=== PATIENT | female | born 1945 | race Caucasian/White ===

== ENCOUNTER → 2016-11-14 | Outpatient (CLI) | payer OTHER ==
[~2016-11-14] MED LIST: ADVIN50/60 INH; ADVIN50050 INH; AMB10 PO; ASPI81TA21 PO; ASPI81TA28 PO; ATOR-22 PO; ATOR-54 PO; AZIT250T PO; BUDE0.5S INH; CALC-452 PO; CALC-51 PO; CALCTAB5 PO; CELE1CAP30 PO; CHOL100027 PO; CLON0.5T3 PO; CLOP1TAB5 PO; CRG125 PO; DPKSR500 PO; EFF75 PO; EPP3/2 IM; IMMU4INJ SQ; IVIG; IVIG SC; KLN5X PO; LABE100T23 PO; LBT100 PO; LEVA1.255; LEVA1.255 NEB; LOSA100T65 PO; LOSA1TAB38 PO; LPT40 PO; MOME50SP5; MOME6000; MONT1TAB3 PO; MULT-513 PO; MULTTAB PO; MXZC25 PO; OMEP20CA59 PO; OMEP20CA9 PO; PHEN-601 PO; PLMINSR5 INH; PLV75 PO; POTA20TA13 PO; POTA20TA16 PO; PRED10TA PO; TRIA37.5 PO; VENL37.593 PO; VENL75TA4 PO; VNTHFA/IN INH; XPNINS125 NEB; ZOLP10TA PO; ZOLP10TA6 PO; [UNRECOGNIZED DRUG - OTHER] IV
[2016-11-14 14:38] LABS: HEMATOCRIT 35.8 % (37-47); MEAN CELL VOLUME 93.5 fL (80-100); MEAN CORPUSCULAR HEMOGLOBIN 32.6 pg (25-34); MEAN CORPUSCULAR HGB CONC 34.9 g/dl (32-36); MEAN PLATELET VOLUME 8.8 fL (7.4-10.4); PLATELET COUNT 277 K/uL (130-400); RED BLOOD COUNT 3.83 M/uL (4.2-5.4); WHITE BLOOD COUNT 12.99 K/uL (4.8-10.8)
[2016-11-14 15:23] LABS: BLOOD UREA NITROGEN 21 mg/dl (7-18); BUN/CREATININE RATIO 18.9 (10-20)
[2016-11-14 16:10] LABS: INFLUENZA A PCR Neg for Influ A (NEG); INFLUENZA B PCR Neg for Influ B (NEG)
== END | disposition home or self-care (01) ==
LOC: C.LAB 13:38
PROVIDERS: ATTEND Internal Medicine Pulmonary Disease
DX: R06.02 Shortness of breath (principal); R05 Cough

== ENCOUNTER → 2016-12-20 | Day surgery (SDC) | payer OTHER ==
[2016-12-11 13:12] LABS: COMPLETE YES; EOS % 1.3 %; HEMATOCRIT 38.2 % (37-47); IG% 0.4 %; LYMPH % 23.6 %; MEAN CELL VOLUME 96.2 fL (80-100); MEAN CORPUSCULAR HGB CONC 34.3 g/dl (32-36); MEAN PLATELET VOLUME 8.7 fL (7.4-10.4); MONO % 5.4 %; NEUT % 69.3 %; PLATELET COUNT 180 K/uL (130-400); RED BLOOD COUNT 3.97 M/uL (4.2-5.4); WHITE BLOOD COUNT 9.76 K/uL (4.8-10.8)
[2016-12-11 13:27] LABS: PARTIAL THROMBOPLASTIN RATIO 0.9; PROTHROMBIN TIME (PATIENT) 10.4 SECONDS (9.0-12.0)
[2016-12-11 13:49] LABS: ALT/SGPT 32 U/L (12-78); AST/SGOT 23 U/L (15-37); BLOOD UREA NITROGEN 14 mg/dl (7-18); BUN/CREATININE RATIO 13.2 (10-20); CALCIUM 8.5 mg/dl (8.5-10.1); CARBON DIOXIDE 31 mmol/L (21-32); CHLORIDE 99 mmol/L (98-107); GLUCOSE 100 mg/dl (70-99); SODIUM 136 mmol/L (136-145)
[2016-12-11 13:51] LABS: ALB/GLOB RATIO 0.9 (0.9-2); ALKALINE PHOSPHATASE 46 U/L (45-117)
[~2016-12-20] VITALS: Ht 156.2 cm; Wt 56.3 kg
[2016-12-20] VITALS (14 sets, daily range): BP systolic 136–203; BP diastolic 63–128; PULSE 81–95; TEMP 36.3–36.8; O2SAT 95–99; Ht 156.2 cm; Wt 56.3 kg
[~2016-12-20] MED LIST changes: +FENTANYL CITRATE INJ 50 MCG/1 ML 2 ML VIAL IV ONE; +HydrALAZINE HCL 20 MG/ML VIAL ONE; +LIDOCAINE 4% INH SOLN 4 ML BTL ONE; +LIDOCAINE HCL 2% LOCAL 50ML VIAL INFIL ONE; +MIDAZOLAM HCL 5 MG/ML 1 ML VIAL IV ONE
--- NOTE | 2016-12-20 07:54 | Procedure Note ---
Pre-Mod Sedation Assessment General Date of Moderate Sedation: Dec 20, 2016. Vital Signs: 71y/o female her for bronchoscopy secondary to chronically poorly controlled asthma with multiple rounds of anti-biotic and steroid failure. She underwent B.T. with Dr. Cuco Jett in [id number] with some benefit but at this time she continues to have progression of her respiratory symptoms. Review Cardiovascular: regular rate, rhythm, no edema, no gallop, no JVD, no murmur, normal peripheral pulses Abdomen: normal bowel sounds, non tender, soft, no organomegaly, no pulsatile mass, normal rectal exam, occult blood negative Lungs: chest non-tender, lungs clear, normal breath sounds, no respiratory distress, no accessory muscle use Airway Class: II Pre-Sedation Airway Assessment Oral Cavity: Dental Abnormalities Short Thick Neck: No Hx of Sleep Apnea: No Smoking Status: Former Smoker Mallampati Classification: Class II ASA Classification: Class II Procedure Planning Contraindications-for Mod Sed: None Yes Notes The planned sedation has been discussed with the patient and consent obtained. I have identified the patient, determined the appropriateness of sedation and have assessed the patient immediately prior to the procedure. All medicine(s) and interventions are by my order.
--- NOTE | 2016-12-20 08:48 | History & Physical Bridge Note ---
H&P Re-Evaluation Bridge Note: I have examined the patient, reviewed the History & Physical and in the interval since the performance of the History & Physical I have noted the following changes of clinical significance: No changes noted
--- NOTE | 2016-12-20 09:42 | Bronchoscopy Procedure Note ---
Bronchoscopy Procedure Note Procedure: Bronchoscopy, conscious sedation Preprocedural diagnosis: Chronic poorly controlled asthma Postprocedural diagnosis: Chronic probably controlled asthma/rhinitis Consent: Obtained to the patient placed in the chart Analgesia: 2% liquid lidocaine: atomizer via nebulizer 2% liquid lidocaine: Via hand-held nebulizer/atomizer Sedation: Versed IV: 2 mg Fentanyl IV: 50 g Medications: Hydralazine IV: 10 mg Procedure: The Olympus video bronchoscope was used for this procedure passed out through the oropharynx, retroflexed off the oropharynx for posterior view the naris. The oropharynx/posterior oropharynx: Anatomically within normal limits, no erythema of the posterior oropharynx Sree glottis/glottic region: Anatomically within normal limits but notable erythema globally Posterior naris: Erythema with hyponatremia appreciated bilateral posterior nasopharynx Discontinuation: Procedure was terminated prior to passing the plonk into the airway as patient's blood pressure was notably elevated. Even after medication it was notably at 174/111. As she was transferred back to [facility] the patient's blood pressure lowered and her diastolic was notably at 86. Follow-up: Patient will be followed up in a issue and of stable with normal blood pressure discharged home. Patient will be followed up in the [facility] and repeat bronchoscopy we will set up at that time and when our patient's blood pressure better controlled.
--- NOTE | 2016-12-20 09:42 | Procedure Note ---
Post-Moderate Sedation Plan General Date of Moderate Sedation Dec 20, 2016. Vital Signs: Vital Signs Past 12 Hours Date Time Temp Pulse Resp B/P Pulse Ox O2 Delivery O2 Flow Rate FiO2 12/20/16 09:25 95 18 167/89 98 Mask 4.0 12/20/16 09:20 93 20 174/111 98 Mask 4.0 12/20/16 09:15 93 20 203/121 98 Mask 4.0 12/20/16 09:10 81 20 197/128 98 Mask 4.0 12/20/16 09:05 82 20 193/111 98 Mask 4.0 12/20/16 09:00 88 18 181/89 97 Mask 4.0 12/20/16 08:50 83 18 185/90 97 Room Air 12/20/16 08:13 36.3 86 18 171/92 97 Room Air Review - Discharge Plan Post Moderate Sedation Plan: On clinical assessment, the patient appears to have tolerated the conscious sedation without complications. Patient is recovering as anticipated. Patient will continue to be monitored by nursing and may be discharged when conscious sedation discharge criteria are met.
--- NOTE | 2016-12-20 09:48 | Discharge Instructions ---
Discharge Instructions Date of Service Dec 20, 2016. Admission Reason for Admission: Sob, Asthma, Cough; R0602 Discharge Discharge Diagnosis / Problem: poorly controlled asthma/pleurisy control blood pressure Discharge Goals Goal(s): Diagnostic testing Activity Recommendations Activity Limitations: resume your previous activity . Instructions / Follow-Up Instructions / Follow-Up Follow-up with the [facility] to reinitiate/reset up bronchoscopy. Current Hospital Diet Patient's current hospital diet: Discharge Diet Recommended Diet: Regular Diet Procedures Procedures Performed: Bronchoscopy, conscious sedation Pending Studies Studies pending at discharge: no Medical Emergencies . Who to Call and When: Medical Emergencies: If at any time you feel your situation is an emergency, please call 911 immediately. . Non-Emergent Contact Non-Emergency issues call your: Energy Specialist Call Non-Emergent contact if: temperature is above 101.5 . Past History Medical & Surgical History: (1) Asthma (2) AC MYOCARDIAL INFARCT,SUBENDO INFARCT,INITIAL EPIS (3) ASTHMA, UNSPECIFIED (4) HYPERLIPIDEMIA NEC/NOS (5) COPD exacerbation (6) Bronchitis with asthma, acute (7) Asthma exacerbation . "Provider Documentation" section prepared by Jonh Lund. VTE Core Measure Inpt VTE Proph given/why not?: Treatment not indicated
== END | disposition home or self-care (01) ==
LOC: C.ACU 07:45
PROVIDERS: ATTEND Internal Medicine Critical Care Medicine
DX: J45.909 Unspecified asthma, uncomplicated (principal); I10 Essential (primary) hypertension; Z53.09 Procedure and treatment not carried out because of other contraindication; G47.33 Obstructive sleep apnea (adult) (pediatric); J32.9 Chronic sinusitis, unspecified; F32.9 Major depressive disorder, single episode, unspecified; K52.9 Noninfective gastroenteritis and colitis, unspecified; K58.9 Irritable bowel syndrome, unspecified; I08.0 Rheumatic disorders of both mitral and aortic valves

== ENCOUNTER 2017-01-05 08:45 | Day surgery (SDC) | payer OTHER ==
[2017-01-05] VITALS (12 sets, daily range): BP systolic 132–178; BP diastolic 71–110; PULSE 84–105; TEMP 36.6; O2SAT 94–100; Ht 157.5 cm; Wt 56.0 kg
[~2017-01-05] VITALS: Ht 157.5 cm; Wt 56.0 kg
--- NOTE | 2017-01-05 07:21 | History and Physical ---
History & Physical Date Jan 05, 2017. Chief Complaint Poorly controlled asthma History of Present Illness The patient is a 71 year old female with complaints of Poorly controlled asthma. This is a 71 year old female who we have treated for asthma for several years. She has undergone brochial thermoplasty at the end of 2013 and the beginning of 2014. She did well following this procedure for several months. She unfortunately has had some regression and recurrence of her symptoms. She recently has been having some frequent exacerbations to her breathing/asthma. She has been treated with multiple courses of antibiotics and prednisone. She unfortunately has been have recurrences of her exacerbations. At this time, we have discussed multiple treatment options. At this time, it is felt that having a followup bronchoscopy may be the most beneficial way to move forward. She has had bronchoscopies in the past when she has had exacerbations like this and has received significant improvement. In the past she has also had diminished but clear breath sounds but has been found to have significant mucus and mucoid impaction. We did discuss the procedure including the risks, benefits, and alternatives to this. She is agreeable to having this procedure. done. She will have the appropriate blood work. Her last PFT was done in August 2014 and revealed a FVC which was 84% predicted, an FEV1 of 75% predicted and an FVC/FEV1 ratio of 83% predicted. Past Medical/Surgical History Medical Problems: (1) AC MYOCARDIAL INFARCT,SUBENDO INFARCT,INITIAL EPIS (2) ASTHMA, UNSPECIFIED (3) HYPERLIPIDEMIA NEC/NOS (4) IRRITABLE BOWEL SYNDROME 1.Abnormal mammogram 2.Acute sinusitis 3.Arthralgia of multiple sites 4.Poorly Controlled Asthma 5.Chronic sinusitis 6.Cough 7.Depression 8.Dyspareunia 9.Gastroenteritis 10.Generalized anxiety disorder 11.Helicobacter pylori (H. 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 Myocardial Infarction Surgical History 1. Bronchoscopy With Bronchial Thermoplasty 2. Dilation And Curettage 3. Hx Of Breast Surgery For Biopsy 4. Sinus Surgery Additional History Hepatic Disease: No Endocrine Disorder: No Kidney Disease: No Hypertension: Yes Heart Disease: Yes Bleeding Tendencies: No Infectious Diseases: No Allergies Coded Allergies: Levofloxacin (Verified Allergy, Severe, ANAPHYLAXIS, 12/20/16) Quinolones (Verified Allergy, Severe, RASH, 12/20/16) Avelox and levaquin Molds and Smuts (Verified Allergy, Mild, SEASONAL ALLERGY SYMPTOMS, ) Doxycycline (Verified Adverse Reaction, Intermediate, nausea, 12/20/16) Erythromycin (Verified Adverse Reaction, Mild, N/V, 12/20/16) Penicillins (Verified Adverse Reaction, Mild, AUGMENTIN-GI UPSET, 12/20/16) GI UPSET Home Medications Scheduled Aspirin Enteric Coated (Ecotrin Or Generic), 81 MG PO DAILY Atorvastatin (Lipitor), 20 MG PO QPM Calcium (Caltrate), 1,200 MG PO DAILY Epinephrine (Epipen), 0.3 MG IM UD Fluticasone Prop/Salmeterol (Advair Diskus 500-50 Mcg/Dose), 1 PUFF INH BID Labetalol Hcl (Labetalol Hcl), 50 MG PO BID Losartan Potassium (Cozaar), 100 MG PO QPM Mometasone Furoate (Nasonex), 2 SPRAY NA DAILY Montelukast Sodium (Singulair), 10 MG PO DAILY Multivitamins/Minerals (Mvi With Minerals), 1 TAB PO DAILY Omeprazole (Prilosec), 20 MG PO DAILY Potassium Ext Rel (Klor-Con), 20 MEQ PO DAILY Triamterene/Hctz (Triamterene/Hctz 37.5-25MG Tab), 1 TAB PO DAILY Venlafaxine Hcl (Effexor), 75 MG PO DAILY Zolpidem Tartrate (Ambien *), 10 MG PO HS PRN [Ivig], Unknown Dose SC WK Scheduled PRN Budesonide Soln (Pulmicort Respules 0.5MG/2ML), 2 ML INH QID PRN for Shortness of Breath Clonazepam (Klonopin), 0.5 MG PO TID PRN Levalbuterol Hcl (Levalbuterol), 1 DOSE NEB Q4H PRN for SOB/Wheezing Phenylephrine W/ Acetaminophen (Tylenol Sinus Congestion), 1 TAB PO Q6 PRN for Cough Physical Examination Skin: warm/dry, no rash Eyes: normal inspection, EOMI, sclerae normal ENT: normal ENT inspection, pharynx normal Head: normocephalic, atraumatic Neck: supple, no adenopathy, trachea midline Respiratory/Chest: lungs clear, normal breath sounds, no respiratory distress Cardiovascular: regular rate, rhythm, no edema, no murmur Abdomen / GI: normal bowel sounds, non tender Back: normal inspection Extremities: normal inspection, normal range of motion Neurologic/Psych: no motor/sensory deficits, alert, normal reflexes, oriented x 3 Diagnosis Poorly Controlled Asthma ASA Classification: ASA Class II Plan of Treatment Bronchoscopy with BAL
[~2017-01-05 08:45] MED LIST changes: -ADVIN50/60 INH; -ASPI81TA28 PO; -ATOR-22 PO; -AZIT250T PO; -CALC-452 PO; -CALC-51 PO; -CELE1CAP30 PO; -CHOL100027 PO; -CLOP1TAB5 PO; -CRG125 PO; -DPKSR500 PO; -EFF75 PO; -FENTANYL CITRATE INJ 50 MCG/1 ML 2 ML VIAL IV ONE; -HydrALAZINE HCL 20 MG/ML VIAL ONE; -IMMU4INJ SQ; -IVIG; -KLN5X PO; -LBT100 PO; -LEVA1.255; -LIDOCAINE 4% INH SOLN 4 ML BTL ONE; -LIDOCAINE HCL 2% LOCAL 50ML VIAL INFIL ONE; -LOSA100T65 PO; -LPT40 PO; -MIDAZOLAM HCL 5 MG/ML 1 ML VIAL IV ONE; -MOME6000; -MULT-513 PO; -OMEP20CA9 PO; -PLMINSR5 INH; -PLV75 PO; -POTA20TA13 PO; -PRED10TA PO; -TRIA37.5 PO; -VENL37.593 PO; -VNTHFA/IN INH; -XPNINS125 NEB; -ZOLP10TA PO; -ZOLP10TA6 PO; -[UNRECOGNIZED DRUG - OTHER] IV
[2017-01-05] MEDS ORDERED: FENTANYL CITRATE INJ 50 MCG/1 ML 2 ML VIAL IV ONE (08:46)
[2017-01-05] MEDS ORDERED: LIDOCAINE HCL 2% LOCAL 50ML VIAL INFIL ONE (08:46)
[2017-01-05] MEDS ORDERED: LIDOCAINE 4% INH SOLN 4 ML BTL ONE (08:46)
[2017-01-05] MEDS ORDERED: MIDAZOLAM HCL 5 MG/ML 1 ML VIAL IV ONE (08:46)
[2017-01-05] MEDS ORDERED: CLON0.5T3 PO (09:37)
[2017-01-05] MEDS ORDERED: LEVA1.255 (09:37)
[2017-01-05] MEDS ORDERED: OMEP20CA9 PO (09:37)
[2017-01-05] MEDS ORDERED: ZOLP10TA PO (09:37)
[2017-01-05] MEDS ORDERED: IVIG (09:37)
[2017-01-05] MEDS ORDERED: PLMINSR5 INH (09:37)
[2017-01-05] MEDS ORDERED: PHEN-601 PO (09:37)
[2017-01-05] MEDS ORDERED: ADVIN50/60 INH (09:37)
[2017-01-05] MEDS ORDERED: LOSA1TAB38 PO (09:37)
[2017-01-05] MEDS ORDERED: MOME6000 (09:37)
[2017-01-05] MEDS ORDERED: EFF75 PO (09:37)
[2017-01-05] MEDS ORDERED: ATOR-22 PO (09:37)
[2017-01-05] MEDS ORDERED: POTA20TA16 PO (09:37)
[2017-01-05] MEDS ORDERED: CALC-51 PO (09:37)
--- NOTE | 2017-01-05 10:22 | Procedure Note ---
Pre-Mod Sedation Assessment General Date of Moderate Sedation: Jan 05, 2017. Vital Signs: Vital Signs Past 12 Hours Date Time Temp Pulse Resp B/P Pulse Ox O2 Delivery O2 Flow Rate FiO2 01/05/17 09:13 36.6 87 18 161/86 100 Room Air Review Cardiovascular: regular rate, rhythm, no edema, no gallop, no JVD, no murmur, normal peripheral pulses Abdomen: normal bowel sounds, non tender, soft, no organomegaly, no pulsatile mass, normal rectal exam, occult blood negative Lungs: chest non-tender, no respiratory distress, no accessory muscle use, + decreased breath sounds Airway Class: II Pre-Sedation Airway Assessment Oral Cavity: WNL Able to Visualize Vocal Cords: Yes Short Thick Neck: No Hx of Sleep Apnea: Yes Smoking Status: Former Smoker Mallampati Classification: Class II ASA Classification: Class II Procedure Planning Contraindications-for Mod Sed: None Yes Notes The planned sedation has been discussed with the patient and consent obtained. I have identified the patient, determined the appropriateness of sedation and have assessed the patient immediately prior to the procedure. All medicine(s) and interventions are by my order.
--- NOTE | 2017-01-05 11:12 | Discharge Instructions ---
Discharge Instructions Date of Service Jan 05, 2017. Admission Reason for Admission: Sob; Cough; Asthma Discharge Discharge Diagnosis / Problem: patient is to follow-up with the [facility] Discharge Goals Goal(s): Diagnostic testing Activity Recommendations Activity Limitations: resume your previous activity . Instructions / Follow-Up Instructions / Follow-Up Patient is to follow-up in the [facility] after bronchoscopy Current Hospital Diet Patient's current hospital diet: Discharge Diet Recommended Diet: Regular Diet Procedures Procedures Performed: Bronchoscopy, conscious sedation, bronchial alveolar lavage of the right middle lobe Pending Studies Studies pending at discharge: yes List of pending studies: Microbiologic, fungal and viral analysis of the bronchial lavage Medical Emergencies . Who to Call and When: Medical Emergencies: If at any time you feel your situation is an emergency, please call 911 immediately. . Non-Emergent Contact Non-Emergency issues call your: Food Operations Manager Call Non-Emergent contact if: temperature is above 101.5 . . "Provider Documentation" section prepared by Jonh Lund. VTE Core Measure Inpt VTE Proph given/why not?: Treatment not indicated
--- NOTE | 2017-01-05 11:13 | Procedure Note ---
Post-Moderate Sedation Plan General Date of Moderate Sedation Jan 05, 2017. Vital Signs: Vital Signs Past 12 Hours Date Time Temp Pulse Resp B/P Pulse Ox O2 Delivery O2 Flow Rate FiO2 01/05/17 11:05 105 20 150/88 100 Mask 5.0 01/05/17 11:00 99 18 178/93 100 Mask 5.0 01/05/17 10:55 94 18 169/95 100 Mask 5.0 01/05/17 10:50 87 18 157/79 100 Mask 5.0 01/05/17 10:47 87 18 158/110 100 Mask 5.0 01/05/17 09:13 36.6 87 18 161/86 100 Room Air Review - Discharge Plan Post Moderate Sedation Plan: On clinical assessment, the patient appears to have tolerated the conscious sedation without complications. Patient is recovering as anticipated. Patient will continue to be monitored by nursing and may be discharged when conscious sedation discharge criteria are met.
[2017-01-05] MEDS ORDERED: NURSING VERBAL MED ORDER ONE ×2 (11:15)
[2017-01-05] MEDS ORDERED: SODIUM CHLORIDE 0.9% 1000ML 1,000 ML IV SCH (11:15)
[2017-01-05] MEDS ORDERED: MIDAZOLAM HCL 5 MG/ML 1 ML VIAL IV SCH (11:15)
[2017-01-05] MEDS ORDERED: FENTANYL CITRATE INJ 50 MCG/1 ML 2 ML VIAL IV SCH (11:15)
--- NOTE | 2017-01-05 11:17 | Bronchoscopy Procedure Note ---
Bronchoscopy Procedure Note Procedure: Bronchoscopy, conscious sedation, bronchial alveolar lavage of the right middle lobe Consent: Obtained through the patient placed into the chart Preprocedural diagnosis: Chronic cough Postprocedural diagnosis: Chronic cough Start time: 1049 End time: 1100 Total time: 11 minutes Analgesia: 2% liquid lidocaine: Via nebulizer 4% gel lidocaine: Via right naris 2% liquid lidocaine: Via bronchoscopy Sedation: Versed IV: 3 mg Fentanyl IV: 50 g Procedure: The Olympus video bronchoscope was used for this procedure passed out through the right naris. Right naris/posterior naris/posterior oropharynx: Anatomically within normal limits Glottis: Anatomically within normal limits Vocal cords: Proper abduction and abduction, anatomically within normal limits Subglottis: Trachea: Approximately 3 cm below the level of the rohan and hyperextension of 6 cm there were multiple ways calcified nodules noted along the tracheal rings. Most of these were on the left side and anterior subsegment of the trachea. There was a 5 mm in length area of tracheal indentation almost fracture were no signs of tracheobronchial malacia. Rohan: Anatomically within normal limits Right bronchial tree: Right mainstem bronchus: Anatomically within normal limits Right upper lobe: Anatomically within normal limits Bronchus intermedius: Anatomically within normal limits Right middle lobe: Anatomically within normal limits Right lower lobe: Anatomically within normal limits Findings: No significant findings noted Left bronchial tree: Left mainstem bronchus: Anatomically within normal limits Left upper lobe: Anatomically within normal limits Lingula: Anatomically within normal limits Left lower lobe: Anatomically within normal limits Findings: No significant findings noted Bronchial alveolar lavage: Approximate 60 cc of normal saline was used and approximately 30 cc of return of the right middle lobe Complications: None Follow-up: Initial postprocedural follow-up will be in the [facility] Patient will be followed up in the [facility]
[2017-02-02 10:51] LABS: HERPES SIMPLEX CULT SOURCE OTHER-BRONCH WASH; HERPES SIMPLEX VIRUS CULT NOT ISOLATED (NOT ISOLATED)
[2017-06-13] MEDS ORDERED: EPP3/2 IM (09:37)
[2017-06-13] MEDS ORDERED: TRIA37.5 PO (09:37)
[2017-06-13] MEDS ORDERED: LBT100 PO (09:37)
[2017-06-13] MEDS ORDERED: ASPI81TA28 PO (09:37)
[2017-06-13] MEDS ORDERED: MULT-513 PO (09:37)
[2017-07-19] MEDS ORDERED: ATOR-24 PO (10:05)
[2017-07-19] MEDS ORDERED: DPKSR/500 PO (10:05)
[2017-07-19] MEDS ORDERED: CLOP1TAB15 PO (10:05)
[2017-07-19] MEDS ORDERED: SODI1TAB PO (10:05)
[2017-07-19] MEDS ORDERED: MAGNESIUM POTASSIUM PO (10:05)
[2017-07-19] MEDS ORDERED: PRED10TA PO (10:05)
[2017-07-19] MEDS ORDERED: DPKSR/250 PO (10:05)
[2017-07-19] MEDS ORDERED: CARV12.5 PO (10:05)
[2017-07-19] MEDS ORDERED: CLB/200 PO (10:05)
[2017-07-19] MEDS ORDERED: NAPR1TAB9 PO (10:08)
[2017-07-20] MEDS ORDERED: BENZ100C7 PO (10:32)
== END 2017-01-05 13:15 | disposition home or self-care (01) ==
LOC: C.ACU 08:45
PROVIDERS: ATTEND Internal Medicine Critical Care Medicine
DX: R05 Cough (principal); J45.909 Unspecified asthma, uncomplicated; E78.5 Hyperlipidemia, unspecified; F32.9 Major depressive disorder, single episode, unspecified; F41.1 Generalized anxiety disorder; I10 Essential (primary) hypertension; G47.33 Obstructive sleep apnea (adult) (pediatric); Z79.82 Long term (current) use of aspirin; Z79.899 Other long term (current) drug therapy

== ENCOUNTER → 2017-02-21 | Outpatient (CLI) | payer OTHER ==
[~2017-02-21] MED LIST changes: +ADVIN50/60 INH; -ADVIN50050 INH; -AMB10 PO; -ASPI81TA21 PO; +ASPI81TA28 PO; +ATOR-24 PO; +BENZ100C7 PO; -BUDE0.5S INH; +CALC-452 PO; +CALC-51 PO; -CALCTAB5 PO; +CARV12.5 PO; +CELE1CAP30 PO; +CLB/200 PO; +CLOP1TAB15 PO; +CLOP1TAB5 PO; +CRG125 PO; +DPKSR/250 PO; +DPKSR/500 PO; +DPKSR500 PO; +EFF75 PO; +IMMU4INJ SQ; +KLN5X PO; -LABE100T23 PO; +LBT100 PO; +LEVA1.255; -LEVA1.255 NEB; +LOSA100T65 PO; +LPT40 PO; +MAGNESIUM POTASSIUM PO; -MOME50SP5; +MOME6000; +MULT-513 PO; -MULTTAB PO; -MXZC25 PO; +NAPR1TAB9 PO; -OMEP20CA59 PO; +OMEP20CA9 PO; +PLMINSR5 INH; +PLV75 PO; +POTA20TA13 PO; +PRED10TA PO; +SODI1TAB PO; +TRIA37.5 PO; +VENL37.593 PO; -VENL75TA4 PO; +VNTHFA/IN INH; +XPNINS125 NEB; +ZOLP10TA PO; +ZOLP10TA6 PO
--- NOTE | 2017-02-21 15:11 | MAMMOGRAPHY REPORT ---
BILATERAL DIGITAL SCREENING MAMMOGRAM TOMOSYNTHESIS WITH CAD: 02/21/2017 CLINICAL HISTORY: Routine screening. Patient has no complaints. TECHNIQUE: Breast tomosynthesis in addition to standard 2D mammography was performed. Current study was also evaluated with a Computer Aided Detection (CAD) system. COMPARISON: Comparison is made to exams dated: 09/14/2016 ultrasound, 09/14/2016 mammogram, 03/15/20 16 mammogram, 03/06/2016 mammogram, 02/21/2016 mammogram, and 02/18/2015 mammogram - [facility]. BREAST COMPOSITION: The tissue of both breasts is heterogeneously dense, which may obscure small ma sses. FINDINGS: No suspicious masses, calcifications, or areas of architectural distortion are noted in e ither breast. There has been no significant interval change compared to prior exams. A biopsy marke r clip is again noted in the left upper outer quadrant. Bilateral benign-appearing calcifications a re not significantly changed. A linear scar marker denotes a scar on the left lateral breast. IMPRESSION: ACR BI-RADS CATEGORY 2: BENIGN There is no mammographic evidence of malignancy. A 1 year screening mammogram is recommended. The p atient will receive written notification of the results. Approximately 10% of breast cancers are not detected with mammography. A negative mammographic repor t should not delay biopsy if a clinically suggestive mass is present. Christel Le M.D. ah/:02/21/2017 14:50:29 Senior Sustainability Advisor: Harley METZGER(R)(M), [facility] letter sent: Normal 1/2 BI-RADS Code: ACR BI-RADS Category 2: Benign
== END | disposition home or self-care (01) ==
LOC: C.MAMM 13:29
PROVIDERS: ATTEND Family Medicine
DX: Z12.31 Encounter for screening mammogram for malignant neoplasm of breast (principal)

== ENCOUNTER → 2017-05-25 | Outpatient (CLI) | payer OTHER ==
[~2017-05-25] MED LIST changes: -ATOR-24 PO; -BENZ100C7 PO; -CARV12.5 PO; -CLB/200 PO; -CLOP1TAB15 PO; -DPKSR/250 PO; -DPKSR/500 PO; -MAGNESIUM POTASSIUM PO; -NAPR1TAB9 PO; -PRED10TA PO; -SODI1TAB PO
--- NOTE | 2017-05-25 13:07 | DIAGNOSTIC IMAGING REPORT ---
TWO VIEW CHEST CLINICAL HISTORY: Cough. Asthma. FINDINGS: PA and lateral chest radiographs are compared to study dated 06/23/2014 and correlated with chest CT dated 05/24/2013. The cardiomediastinal silhouette is unremarkable. Chronic interstitial thickening is similar to previous. There is no airspace consolidation or pleural effusion. There is no pneumothorax. The skeletal structures are osteopenic. The bony thorax appears intact. Fusion hardware is noted in the cervical spine. IMPRESSION: No active disease in the chest. Electronically signed by: Juan Miguel Chahal M.D. 05/25/2017 1:05 PM Dictated Date/Time: 05/25/2017 1:04 PM
[2017-05-25 15:00] LABS: BASO % 0.2 %; BASO ABS # 0.01 K/uL (0-0.2); COMPLETE YES; EOS % 0.4 %; HEMATOCRIT 35.5 % (37-47); IG% 0.2 %; LYMPH % 13.3 %; LYMPH ABS # 0.64 K/uL (1.2-3.4); MEAN CELL VOLUME 93.2 fL (80-100); MEAN CORPUSCULAR HEMOGLOBIN 33.1 pg (25-34); MEAN CORPUSCULAR HGB CONC 35.5 g/dl (32-36); MEAN PLATELET VOLUME 8.9 fL (7.4-10.4); MONO % 0.6 %; NEUT % 85.3 %; PLATELET COUNT 269 K/uL (130-400); RED BLOOD COUNT 3.81 M/uL (4.2-5.4); WHITE BLOOD COUNT 4.83 K/uL (4.8-10.8)
[2017-05-25 15:23] LABS: IMMUNOGLOBULN A 69.9 mg/dL (70-400); IMMUNOGLOBULN M 40.8 mg/dL (40-230)
== END | disposition home or self-care (01) ==
LOC: C.LAB 12:21
PROVIDERS: ATTEND Family Medicine
DX: J45.909 Unspecified asthma, uncomplicated (principal); R05 Cough; D83.9 Common variable immunodeficiency, unspecified; Z11.59 Encounter for screening for other viral diseases

== ENCOUNTER 2017-06-13 17:28 | Inpatient (IN) | payer OTHER ==
[~2017-06-13] VITALS: Ht 157.5 cm; Wt 60.6 kg
[~2017-06-13 17:28] MED LIST changes: -CALC-452 PO; -CELE1CAP30 PO; -CLOP1TAB5 PO; -CRG125 PO; -DPKSR500 PO; -IMMU4INJ SQ; -KLN5X PO; -LOSA100T65 PO; -LPT40 PO; -PLV75 PO; -POTA20TA13 PO; -VENL37.593 PO; -VNTHFA/IN INH; -XPNINS125 NEB; -ZOLP10TA6 PO
[2017-06-13] MEDS ORDERED: SODIUM CHLORIDE 0.9% 1000ML 1,000 ML IV SCH (17:32)
[2017-06-13] MEDS ORDERED: ONDANSETRON INJ 2 MG/ML 2 ML VIAL IV STA (17:33)
[2017-06-13] MEDS ORDERED: LABETALOL HCL IV 5 MG/ML 20ML IV STA (17:34)
[2017-06-13] MEDS ORDERED: NiCARDipine IV 25 MG in SODIUM CHLORIDE 0.9% 250ML 240 ML IV STA (17:38)
--- NOTE | 2017-06-13 17:43 | EMERGENCY ROOM VISIT NOTE ---
History Report prepared by Cielo: Lilibeth Ellison Under the Supervision of: Dr. Armand Hathaway M.D. First contact with patient: 17:30 Chief Complaint: STROKE SYMPTOMS Stated Complaint: STROKE SX History of Present Illness The patient is a 71 year old female who presents to the Emergency Room with complaints of constant stroke symptoms beginning 5 hours ago at 12:20. Per nursing staff, he patient has a history of CVA. She was last noted to be completely normal about 4 or 5 days ago but started having weakness 5 hours ago. The patient complains of nausea, vomiting, and shortness of breath. Her family notes that she was more confused this afternoon. She denies any facial droop. Source of History: patient, nursing staff Onset: 4 days ago Position: other (global) Quality: other (stroke symptoms) Timing: constant Associated Symptoms: + SOB, + nausea, + vomiting Note: Pt notes confusion. Denies facial droop. Review of Systems See HPI for pertinent positives & negatives. A total of 10 systems reviewed and were otherwise negative. Past Medical & Surgical Medical Problems: (1) AC MYOCARDIAL INFARCT,SUBENDO INFARCT,INITIAL EPIS (2) Altered mental status (3) ASTHMA, UNSPECIFIED (4) HYPERLIPIDEMIA NEC/NOS (5) Hypertensive urgency (6) IRRITABLE BOWEL SYNDROME Family History Hypertension Social History Smoking Status: Former Smoker Alcohol Use: none Drug Use: none Marital Status: Occupation Status: employed Current/Historical Medications Scheduled Aspirin (Aspirin Ec), 81 MG PO DAILY Calcium Carbonate-Cholecalcife (Calcium 600 + D 600-200 mg-Unit), 1 TAB PO BID Immune Globulin (Human) Subcut (Hizentra), 1 DOSE SQ WK Labetalol HCl (Labetalol HCl), 50 MG PO BID Levalbuterol (Levalbuterol HCl), 1.25 MG NEB Q4H Losartan Potassium (Cozaar), 100 MG PO DAILY Multivitamins/Minerals (Mvi With Minerals), 1 TAB PO DAILY Potassium Chloride Microencaps (Potassium Chloride Er), 20 MEQ PO DAILY Triamterene/Hctz (Dyazide 37.5MG/25MG), 1 CAP PO DAILY Venlafaxine Hcl (Venlafaxine Extended Rel), 37.5 MG PO DAILY Scheduled PRN Albuterol Hfa (Ventolin Hfa), 2 PUFFS INH Q4H PRN for Cough/SOB/Wheezing Clonazepam (Clonazepam), 0.5 MG PO TID PRN for Anxiety Epinephrine (Epipen), 0.3 MG IM UD PRN for ALLERGIC REACTION Zolpidem Tartrate (Zolpidem Tartrate), 10 MG PO HS PRN for Sleep Allergies Coded Allergies: Levofloxacin (Verified Allergy, Severe, ANAPHYLAXIS, 01/05/17) Quinolones (Verified Allergy, Severe, RASH, 01/05/17) Avelox and levaquin Molds and Smuts (Verified Allergy, Mild, SEASONAL ALLERGY SYMPTOMS, 01/05/17 ) Amoxicillin (Verified Allergy, Unknown, Nausea, 06/13/17) Clavulanic Acid (Verified Allergy, Unknown, Nausea, 06/13/17) Moxifloxacin (Verified Allergy, Unknown, Nausea, 06/13/17) Doxycycline (Verified Adverse Reaction, Intermediate, nausea, 01/05/17) Erythromycin (Verified Adverse Reaction, Mild, N/V, 01/05/17) Penicillins (Verified Adverse Reaction, Mild, AUGMENTIN-GI UPSET, 01/05/17) GI UPSET Physical Exam Vital Signs Date Time Temp Pulse Resp B/P (MAP) Pulse Ox O2 Delivery O2 Flow Rate FiO2 06/13/17 20:05 141/72 06/13/17 20:00 107 16 140/72 96 Nasal Cannula 2.0 06/13/17 19:55 107 16 134/85 97 Nasal Cannula 2.0 06/13/17 19:50 107 142/64 06/13/17 19:45 118 148/75 06/13/17 19:40 118 16 159/69 97 Nasal Cannula 2.0 06/13/17 19:25 108 16 169/86 96 Nasal Cannula 2.0 06/13/17 19:15 106 16 169/86 96 Nasal Cannula 2.0 06/13/17 19:05 109 16 176/88 97 Nasal Cannula 2.0 06/13/17 18:50 108 18 195/103 97 06/13/17 18:45 99 187/92 06/13/17 18:40 103 186/93 97 Nasal Cannula 2.0 06/13/17 18:35 100 186/92 06/13/17 18:30 187/98 06/13/17 18:29 97 97 Nasal Cannula 2.0 9/13/17 18:26 189/86 06/13/17 18:24 105 96 Nasal Cannula 2.0 06/13/17 18:20 85 Room Air 06/13/17 18:20 96 Nasal Cannula 2.0 06/13/17 18:19 96 94 06/13/17 18:16 171/89 06/13/17 18:14 97 92 06/13/17 18:10 182/106 06/13/17 18:09 83 96 06/13/17 18:04 190/126 06/13/17 18:03 73 96 06/13/17 18:01 201/93 06/13/17 17:58 71 98 06/13/17 17:53 73 99 06/13/17 17:48 69 99 06/13/17 17:45 199/92 06/13/17 17:34 216/92 06/13/17 17:30 36.6 71 25 216/92 99 Room Air 06/13/17 17:30 99 Room Air Physical Exam GENERAL: Patient is actively vomiting, cannot follow commands, does not answer questions appropriately HEAD: Normocephalic atraumatic EYES: Ocular movements intact pupils equal and react to light OROPHARYNX mucous membranes are moist no exudates present no erythema or edema present NECK: Supple no nuchal rigidity CHEST: Good equal expansion LUNGS: Clear and equal to auscultation CARDIAC: Normal S1 and S2 ABDOMEN: Soft nontender no guarding BACK: No CVA tenderness EXTREMITIES: No pain upon palpation normal muscle strength in all groups no clubbing cyanosis or edema NEURO: Patient cannot follow commands, she is not answering questions appropriately. Medical Decision & Procedures ER Provider Diagnostic Interpretation: Radiology results as stated below per my review and radiologist interpretation: HEAD WITHOUT CONTRAST (CT) Comparison: None. Findings: The paranasal sinuses and mastoid air cells are clear. The calvarium and skull base are intact. The ventricles and sulci are within normal limits. There is no mass, hematoma, midline shift, or acute infarct. Impression: No acute intracranial abnormality. The above report was generated using voice recognition software. It may contain grammatical, syntax or spelling errors. Electronically signed by: Edy Boss M.D. 06/13/2017 5:45 PM Dictated Date/Time: 06/13/2017 5:44 PM CHEST ONE VIEW PORTABLE FINDINGS: The bones soft tissues and hemidiaphragms are normal. The cardiomediastinal silhouette is normal. The lungs are clear. The pulmonary vasculature is normal. IMPRESSION: Negative chest. The above report was generated using voice recognition software. It may contain grammatical, syntax or spelling errors. Electronically signed by: Edy Boss M.D. 06/13/2017 6:16 PM Dictated Date/Time: 06/13/2017 6:15 PM Laboratory Results 06/13/17 17:48 Red Blood Count 3.90, Mean Corpuscular Volume 92.3, Mean Corpuscular Hemoglobin 31.8, Mean Corpuscular Hemoglobin Concent 34.4, Mean Platelet Volume 8.4, Neutrophils (%) (Auto) 47.9, Lymphocytes (%) (Auto) 38.6, Monocytes (%) (Auto) 9.3, Eosinophils (%) (Auto) 3.6, Basophils (%) (Auto) 0.4, Neutrophils # (Auto) 2.26, Lymphocytes # (Auto) 1.82, Monocytes # (Auto) 0.44, Eosinophils # (Auto) 0.17, Basophils # (Auto) 0.02 06/13/17 17:48 Test 06/13/17 17:47 06/13/17 17:48 06/13/17 18:00 06/13/17 19:35 Bedside Glucose 125 mg/dl (70-90) White Blood Count 4.72 K/uL (4.8-10.8) Red Blood Count 3.90 M/uL (4.2-5.4) Hemoglobin 12.4 g/dL (12.0-16.0) Hematocrit 36.0 % (37-47) Mean Corpuscular Volume 92.3 fL (80-100) Mean Corpuscular Hemoglobin 31.8 pg (25-34) Mean Corpuscular Hemoglobin Concent 34.4 g/dl (32-36) Platelet Count 211 K/uL (130-400) Mean Platelet Volume 8.4 fL (7.4-10.4) Neutrophils (%) (Auto) 47.9 % Lymphocytes (%) (Auto) 38.6 % Monocytes (%) (Auto) 9.3 % Eosinophils (%) (Auto) 3.6 % Basophils (%) (Auto) 0.4 % Neutrophils # (Auto) 2.26 K/uL (1.4-6.5) Lymphocytes # (Auto) 1.82 K/uL (1.2-3.4) Monocytes # (Auto) 0.44 K/uL (0.11-0.59) Eosinophils # (Auto) 0.17 K/uL (0-0.5) Basophils # (Auto) 0.02 K/uL (0-0.2) RDW Standard Deviation 40.4 fL (36.4-46.3) RDW Coefficient of Variation 12.0 % (11.5-14.5) Immature Granulocyte % (Auto) 0.2 % Immature Granulocyte # (Auto) 0.01 K/uL (0.00-0.02) Prothrombin Time 10.0 SECONDS (9.0-12.0) Prothromb Time International Ratio 0.9 (0.9-1.1) Activated Partial Thromboplast Time 25.7 SECONDS (21.0-31.0) Partial Thromboplastin Ratio 1.0 Est Creatinine Clear Calc Drug Dose 41.3 ml/min Estimated GFR () 59.3 Estimated GFR (Non- 51.2 BUN/Creatinine Ratio 13.1 (10-20) Calcium Level 9.0 mg/dl (8.5-10.1) Total Creatine Kinase 280 U/L (26-192) Creatine Kinase MB 2.5 ng/ml (0.5-3.6) Creatine Kinase MB Ratio 0.9 (0-3.0) Chemistry Specimen Hemolysis Bedside Hemoglobin 12.6 g/dl (12.0-16.0) Bedside Hematocrit 37 % (37-47) Bedside Sodium 133 mEq/L (135-144) Bedside Potassium 3.3 mEq/L (3.3-5.0) Bedside Chloride 96 mEq/L (101-112) Bedside Total CO2 22 mEq/l (24-31) Anion Gap 19.0 mmol/L (16-25) Bedside Blood Urea Nitrogen 15 mg/dl (7-18) Bedside Creatinine 1.1 mg/dl (0.6-1.3) Bedside Glucose (other) 129 mg/dl (70-99) Bedside Ionized Calcium ([place]) 1.09 mmol/l (1.12-1.32) Urine Color YELLOW Urine Appearance CLEAR (CLEAR) Urine pH 8.0 (4.5-7.5) Urine Specific [place] 1.011 (1.000-1.030) Urine Protein NEG (NEG) Urine Glucose (UA) NEG (NEG) Urine Ketones NEG (NEG) Urine Occult Blood TRACE (NEG) Urine Nitrite NEG (NEG) Urine Bilirubin NEG (NEG) Urine Urobilinogen NEG (NEG) Urine Leukocyte Esterase NEG (NEG) Urine WBC (Auto) 1-5 /hpf (0-5) Urine RBC (Auto) 0-4 /hpf (0-4) Urine Hyaline Casts (Auto) 0 /lpf (0-5) Urine Epithelial Cells (Auto) 10-20 /lpf (0-5) Urine Bacteria (Auto) NEG (NEG) Urine Opiates Screen NEG (NEG) Urine Methadone, Qualitative NEG (NEG) Urine Barbiturates NEG (NEG) Urine Phencyclidine (PCP) Level NEG (NEG) Ur Amphetamine/Methamphetamine NEG (NEG) MDMA (Ecstasy) Screen NEG (NEG) Urine Benzodiazepines Screen NEG (NEG) Urine Cocaine Metabolite NEG (NEG) Urine Marijuana (THC) NEG (NEG) Labs reviewed by ED physician. Medications Administered Medications (Trade) Dose Ordered Sig/Breanne Route Start Time Stop Time Status Last Admin Dose Admin Sodium Chloride 1,000 ml @ 50 mls/hr Q20H IV 06/13/17 17:32 06/13/17 21:20 DC 06/13/17 18:03 50 MLS/HR Ondansetron HCl (Zofran Inj) 4 mg NOW STAT IV 06/13/17 17:33 06/13/17 17:35 DC 06/13/17 17:56 4 MG Nicardipine HCl 25 mg/Sodium Chloride 250 ml @ 0 mls/hr Q0M STAT IV 06/13/17 17:38 06/13/17 17:39 DC 06/13/17 18:03 75 MLS/HR Metoclopramide HCl (Reglan Inj) 10 mg NOW STAT IV 06/13/17 17:52 06/13/17 17:53 DC 06/13/17 18:03 10 MG Promethazine HCl 25 mg/Sodium Chloride 51 ml @ 204 mls/hr NOW STAT IV 06/13/17 17:59 06/13/17 18:13 DC 06/13/17 18:11 204 MLS/HR Potassium Chloride (Kcl 10 Meq / Wtr) 10 meq NOW STAT IV 06/13/17 18:00 06/13/17 18:01 DC 06/13/17 18:12 10 MEQ Potassium Chloride (Kcl 10 Meq / Wtr) 10 meq NOW STAT IV 06/13/17 18:00 06/13/17 18:01 DC 06/13/17 19:15 10 MEQ Potassium Chloride (Klor-Con M10) 40 meq NOW STAT PO 06/13/17 18:57 06/13/17 18:58 DC 06/13/17 20:21 40 MEQ Magnesium Sulfate (Magnesium Sulfate) 1 gm NOW STAT IV 06/13/17 18:59 06/13/17 19:00 DC 06/13/17 19:21 1 GM Nicardipine HCl 25 mg/Sodium Chloride 250 ml @ 0 mls/hr Q0M PRN IV 06/13/17 19:15 07/13/17 19:14 06/13/17 19:50 75 MLS/HR ECG Indication: weakness Rate (beats per minute): 77 Rhythm: normal sinus Findings: no acute ischemic change, no ectopy ED Course 1729: Past medical records reviewed. The patient was evaluated in room B11B. A complete history and physical examination was performed. 1732: Sodium Chloride 1000 ml @ 50 mls/hr IV, Zofran Inj 4mg IV, Normodyne IV 10mg IV. 1738: Nicardipine HCl 25mg/Sodium Chloride 250ml @ 0 mls/hr Protocol 0mg/hr IV. 175: I discussed the patient's case with Dr. Denson of neurology, he has agreed to evaluate the patient and is examining her now. 1752: Reglan Inj 10mg IV. 175: Promethazine HCl 25mg/Sodium Chloride 51ml @ 204mls/hr IV. 1800: Potassium Chloride 10meq IV, Potassium Chloride 10meq IV. 185: I spoke to Dr. Denson. He agrees with the treatment plan and suggests that if the confusion doesnt resolve to get an MRI. 1856: Potassium Chloride 40meq PO. 1858: Magnesium Sulfate 1gm IV. 1914: Nicardipine HCL 25mg/Sodium Chloride 250ml @ 0mls/hr protocol 0mg/hr PRN IV titrate. 1945: I discussed the patient's case with Dr. Aguirre, he has agreed to evaluate the patient for further management and care. 1953: Upon reexamination the patient is doing well. I discussed results and treatment plan with the patient. She verbalizes agreement and understanding. I spoke with Dr. Aguirre from the [facility]. The patient will be evaluated for further management. Medical Decision Differential diagnosis: Etiologies such as metabolic, infection, hypo/hyperglycemia, electrolyte abnormalities, cardiac sources, intracerebral event, toxicologic, neurologic, as well as others were entertained. This is a 71-year-old female who presents emergency department acutely confused. The patient was last seen normal approximately 6 hours ago. Because she is still the time window for intervention a stroke alert was initiated. She is hypertensive therefore was placed on a nicardipine drip due to the fact that the patient is an asthmatic. Her potassium was also found to be depleted so she was given potassium in the emergency department. The patient was examined by Dr. Denson who felt she needed an MRI of the head. The patient improved cognitive functioning as her blood pressure improved. I did discuss the case with the hospitalist service who agreed to admit the patient. Medication Reconcilliation Current Medication List: was personally reviewed by me Blood Pressure Screening Patient's blood pressure: Elevated blood pressure Blood pressure disposition: Referred to PCP Consults Time Called: 1749 Consulting Physician: Dr. Denson - Neurology Returned Call: [phone]: I discussed the patient's case with Dr. Denson of neurology, he has agreed to evaluate the patient and is examining her now. 1850: I spoke to Dr. Denson. He agrees with the treatment plan and suggests that if the confusion doesnt resolve to get an MRI. Additional Consults: Time Called: 1856 Consulted Physician: Dr. Aguirre Returned Call: 1945 Additional Comments: I discussed the patient's case with Dr. Aguirre, he has agreed to evaluate the patient for further management and care. Impression Primary Impression: Metabolic encephalopathy Additional Impression: Hypertensive emergency Critical Care I have personally spent greater than 90 minutes of critical care time in the direct management of this patient. This includes bedside care, interpretation of diagnostic studies, and testing, discussion with consultants, patient, and family members, and other required patient management activities. This 90 minutes is in excess of all separately billable procedures. Scribe Attestation The scribe's documentation has been prepared under my direction and personally reviewed by me in its entirety. I confirm that the note above accurately reflects all work, treatment, procedures, and medical decision making performed by me. Departure Information Dispostion Being Evaluated By Hospitalist Referrals Jeri Hayden MD (PCP) Patient Instructions My [facility] Problem Qualifiers
--- NOTE | 2017-06-13 17:46 | DIAGNOSTIC IMAGING REPORT ---
HEAD WITHOUT CONTRAST (CT) CT DOSE: 700.35 mGycm HISTORY: Mental status change Stroke TECHNIQUE: Multiaxial CT images of the head were performed without the use of intravenous contrast. A dose lowering technique was utilized adhering to the principles of ALARA. Comparison: None. Findings: The paranasal sinuses and mastoid air cells are clear. The calvarium and skull base are intact. The ventricles and sulci are within normal limits. There is no mass, hematoma, midline shift, or acute infarct. Impression: No acute intracranial abnormality. The above report was generated using voice recognition software. It may contain grammatical, syntax or spelling errors. Electronically signed by: Edy Boss M.D. 06/13/2017 5:45 PM Dictated Date/Time: 06/13/2017 5:44 PM
[2017-06-13] MEDS ORDERED: METOCLOPRAMIDE HCL INJ 5 MG/ML 2 ML VIAL IV STA (17:52)
[2017-06-13 17:59] LABS: BASO % 0.4 %; BASO ABS # 0.02 K/uL (0-0.2); COMPLETE YES; EOS % 3.6 %; IG% 0.2 %; LYMPH % 38.6 %; LYMPH ABS # 1.82 K/uL (1.2-3.4); MEAN CELL VOLUME 92.3 fL (80-100); MEAN CORPUSCULAR HEMOGLOBIN 31.8 pg (25-34); MEAN CORPUSCULAR HGB CONC 34.4 g/dl (32-36); MEAN PLATELET VOLUME 8.4 fL (7.4-10.4); MONO % 9.3 %; NEUT % 47.9 %; PLATELET COUNT 211 K/uL (130-400); WHITE BLOOD COUNT 4.72 K/uL (4.8-10.8)
[2017-06-13] MEDS ORDERED: PROMETHAZINE HCL INJ 25 MG in SODIUM CHLORIDE 0.9% 50ML 50 ML IV STA (17:59)
[2017-06-13] MEDS ORDERED: POTASSIUM CHLORIDE 10 MEQ / 100ML WTR IV STA ×2 (18:00)
[2017-06-13 18:11] LABS: ISTAT CREATININE 1.1 mg/dl (0.6-1.3); ISTAT HEMOGLOBIN 12.6 g/dl (12.0-16.0); ISTAT IONIZED CALCIUM 1.09 mmol/l (1.12-1.32)
[2017-06-13 18:16] LABS: INR 0.9 (0.9-1.1)
--- NOTE | 2017-06-13 18:17 | DIAGNOSTIC IMAGING REPORT ---
CHEST ONE VIEW PORTABLE CLINICAL HISTORY: Stroke mental status change COMPARISON STUDY: 05/25/2017 FINDINGS: The bones soft tissues and hemidiaphragms are normal. The cardiomediastinal silhouette is normal. The lungs are clear. The pulmonary vasculature is normal. IMPRESSION: Negative chest. The above report was generated using voice recognition software. It may contain grammatical, syntax or spelling errors. Electronically signed by: Edy Boss M.D. 06/13/2017 6:16 PM Dictated Date/Time: 06/13/2017 6:15 PM
[2017-06-13 18:33] LABS: BLOOD UREA NITROGEN 14 mg/dl (7-18); BUN/CREATININE RATIO 13.1 (10-20); CARBON DIOXIDE 24 mmol/L (21-32); CHLORIDE 100 mmol/L (98-107); CKMB/CK RATIO 0.9 (0-3.0); GLUCOSE 128 mg/dl (70-99); POTASSIUM 3.4 mmol/L (3.5-5.1); SODIUM 134 mmol/L (136-145)
[2017-06-13] MEDS: NiCARDipine IV 25 MG in SODIUM CHLORIDE 0.9% 250ML 240 ML IV PRN ×3 (18:50→19:55)
[2017-06-13] MEDS ORDERED: POTASSIUM CHLORIDE 10 MEQ TABCR PO STA (18:57)
[2017-06-13] MEDS ORDERED: MAGNESIUM SULFATE 1GM / D5W 1 GM BAG IV STA (18:59)
[2017-06-13] MEDS ORDERED: VNTHFA/IN INH (19:19)
[2017-06-13] MEDS ORDERED: ZOLP10TA6 PO (19:19)
[2017-06-13] MEDS ORDERED: LOSA100T65 PO (19:19)
[2017-06-13] MEDS ORDERED: POTA20TA13 PO (19:19)
[2017-06-13] MEDS ORDERED: VENL37.593 PO (19:19)
[2017-06-13] MEDS ORDERED: KLN5X PO (19:19)
[2017-06-13] MEDS ORDERED: XPNINS125 NEB (19:19)
[2017-06-13] MEDS ORDERED: CELE1CAP30 PO (19:19)
[2017-06-13] MEDS ORDERED: CALC-452 PO (19:24)
[2017-06-13] MEDS ORDERED: POLYETHYLENE (MIRALAX) 17 GM PACK PO PRN (20:15)
[2017-06-13] MEDS ORDERED: CLONAZEPAM 0.5 MG TAB PO PRN (20:15)
[2017-06-13] MEDS ORDERED: ALUMINUM/MAGNESIUM/SIMETH (MAALOX MAX) 30 ML UDC PO PRN (20:15)
[2017-06-13] MEDS ORDERED: MAGNESIUM HYDROXIDE SUSP 30 ML UDC PO PRN (20:15)
[2017-06-13] MEDS ORDERED: ACETAMINOPHEN 325 MG TAB PO PRN (20:15)
[2017-06-13] MEDS ORDERED: MoRPHine SULFATE 2 MG/ML CARP IV PRN (20:15)
[2017-06-13] MEDS ORDERED: IMMU4INJ SQ (20:17)
[2017-06-13 20:22] LABS: BENZODIAZEPINE, URINE NEG (NEG); COCAINE,URINE NEG (NEG); PHENCYCLIDINE, URINE NEG (NEG)
[2017-06-13] MEDS ORDERED: PHARMACIST DISCHARGE MED REC CONSULT PRN (20:30)
--- NOTE | 2017-06-13 20:48 | History and Physical ---
History & Physical Date & Time of Service: Jun 13, 2017 at 20:40 Chief Complaint: Stroke Sx Primary Care Physician: Earl hCan M.D. History of Present Illness Source: patient 71 y/o F Hx HTN, HPL, CVA, anxiety/depression. Developed nausea, vomiting and confusion today and was sent to the ER for evaluation. She was exhibiting labored breathing on arrival and was noted to have a blood pressure of 220/110. Her BP was slow to respond to medications in the ER. She was placed on a Nicardipine drip which did serve to normalize her BP. At the time of medical evaluation she does not appear confused. She exhibits lethargy but is able to answer questions appropriately. She complains primarily of marked fatigue. She does recall being nauseous and SOB although this appears to have resolved. Initial labs are notable for hypokalemia and an elevated CK with normal trop. CT head does not show acute abnormalities and a neuro exam is largely nonfocal. She is tachycardic on admission. Past Medical/Surgical History Medical Problems: 1) Elevated troponin 2011 - workup included cath which did not show any coronary disease - this may have been due to vasospasm or demand due to hypoxia from asthma 2) Severe asthma - History of bronchial thermoplasty 3) HTN 4) IBS 5) Anxiety depression 6) Mention of CVA in chart - no evidence of on exam or current imaging Family History Hypertension Social History Does not smoke - drinks 2 glasses of Chardonnay daily Smoking Status: Former Smoker Drug Use: none Marital Status: Housing status: lives with significant other Occupational Status: employed Immunizations History of Influenza Vaccine: N/A Influenza Vaccine Date: Aug 11, 2010 History of Tetanus Vaccine?: Yes Tetanus Immunization Date: Mar 02, 2007 History of Pneumococcal: Yes Pneumococcal Date: Aug 01, 2007 History of Hepatitis B Vaccine: No Multi-Drug Resistant Organisms History of MDRO: No Allergies Coded Allergies: Levofloxacin (Verified Allergy, Severe, ANAPHYLAXIS, 01/05/17) Quinolones (Verified Allergy, Severe, RASH, 01/05/17) Avelox and levaquin Molds and Smuts (Verified Allergy, Mild, SEASONAL ALLERGY SYMPTOMS, 01/05/17 ) Amoxicillin (Verified Allergy, Unknown, Nausea, 06/13/17) Clavulanic Acid (Verified Allergy, Unknown, Nausea, 06/13/17) Moxifloxacin (Verified Allergy, Unknown, Nausea, 06/13/17) Doxycycline (Verified Adverse Reaction, Intermediate, nausea, 01/05/17) Erythromycin (Verified Adverse Reaction, Mild, N/V, 01/05/17) Penicillins (Verified Adverse Reaction, Mild, AUGMENTIN-GI UPSET, 01/05/17) GI UPSET Home Medications Scheduled Aspirin (Aspirin Ec), 81 MG PO DAILY Calcium Carbonate-Cholecalcife (Calcium 600 + D 600-200 mg-Unit), 1 TAB PO BID Immune Globulin (Human) Subcut (Hizentra), 1 DOSE SQ WK Labetalol HCl (Labetalol HCl), 50 MG PO BID Levalbuterol (Levalbuterol HCl), 1.25 MG NEB Q4H Losartan Potassium (Cozaar), 100 MG PO DAILY Multivitamins/Minerals (Mvi With Minerals), 1 TAB PO DAILY Potassium Chloride Microencaps (Potassium Chloride Er), 20 MEQ PO DAILY Triamterene/Hctz (Dyazide 37.5MG/25MG), 1 CAP PO DAILY Venlafaxine Hcl (Venlafaxine Extended Rel), 37.5 MG PO DAILY Scheduled PRN Albuterol Hfa (Ventolin Hfa), 2 PUFFS INH Q4H PRN for Cough/SOB/Wheezing Clonazepam (Clonazepam), 0.5 MG PO TID PRN for Anxiety Epinephrine (Epipen), 0.3 MG IM UD PRN for ALLERGIC REACTION Zolpidem Tartrate (Zolpidem Tartrate), 10 MG PO HS PRN for Sleep Review of Systems Constitutional: + weakness, + fatigue, No fever, No chills, No sweats Eyes: No worsening of vision ENT: No hearing loss, No nasal symptoms Respiratory: + shortness of breath, + dyspnea on exertion, + dyspnea at rest, No cough, No sputum, No wheezing Cardiovascular: No chest pain, No PND Abdomen: + nausea, + vomiting, No pain, No diarrhea, No constipation Musculoskeletal: No joint pain Genitourinary - Female: No dysuria Neurologic: + problem reported (confusion reported), No memory loss, No paralysis, No weakness Psychiatric: No depression symptoms Endocrine: No fatigue Hematologic / Lymphatic: No abnormal bleeding/bruising Integumentary: No rash Allergic / Immunologic: No environmental allergies Physical Exam Vital Signs Date Time Temp Pulse Resp B/P (MAP) Pulse Ox O2 Delivery O2 Flow Rate FiO2 06/13/17 20:31 98 16 169/84 96 Nasal Cannula 2.0 06/13/17 20:27 95 16 164/89 97 Nasal Cannula 2.0 06/13/17 20:10 98 16 143/72 97 Nasal Cannula 2.0 06/13/17 20:05 141/72 06/13/17 20:00 107 16 140/72 96 Nasal Cannula 2.0 06/13/17 19:55 107 16 134/85 97 Nasal Cannula 2.0 06/13/17 19:50 107 142/64 06/13/17 19:45 118 148/75 06/13/17 19:40 118 16 159/69 97 Nasal Cannula 2.0 06/13/17 19:25 108 16 169/86 96 Nasal Cannula 2.0 06/13/17 19:15 106 16 169/86 96 Nasal Cannula 2.0 06/13/17 19:05 109 16 176/88 97 Nasal Cannula 2.0 06/13/17 18:50 108 18 195/103 97 06/13/17 18:45 99 187/92 06/13/17 18:40 103 186/93 97 Nasal Cannula 2.0 06/13/17 18:35 100 186/92 06/13/17 18:30 187/98 06/13/17 18:29 97 97 Nasal Cannula 2.0 06/13/17 18:26 189/86 06/13/17 18:24 105 96 Nasal Cannula 2.0 06/13/17 18:20 85 Room Air 06/13/17 18:20 96 Nasal Cannula 2.0 06/13/17 18:19 96 94 06/13/17 18:16 171/89 06/13/17 18:14 97 92 06/13/17 18:10 182/106 06/13/17 18:09 83 96 06/13/17 18:04 190/126 06/13/17 18:03 73 96 06/13/17 18:01 201/93 06/13/17 17:58 71 98 06/13/17 17:53 73 99 06/13/17 17:48 69 99 06/13/17 17:45 199/92 06/13/17 17:34 216/92 06/13/17 17:30 36.6 71 25 216/92 99 Room Air 06/13/17 17:30 99 Room Air General Appearance: WD/WN, no apparent distress, + pertinent finding ( Lethargic middle-aged female - no distress) Head: normocephalic Eyes: normal inspection ENT: normal ENT inspection, pharynx normal Neck: supple, no JVD Respiratory/Chest: chest non-tender, lungs clear, normal breath sounds Cardiovascular: regular rate, rhythm, no edema, no gallop Abdomen/GI: normal bowel sounds, non tender, soft Back: normal inspection, no CVA tenderness Extremities/Musculoskelatal: normal inspection, normal range of motion Neurologic/Psych: global technical writer II-XII nml as tested, no motor/sensory deficits, alert, normal mood/affect, normal reflexes, + pertinent finding (She had slight difficulty understanding sequential commands - there may be mild ataxia on the R as compared to the left) Skin: normal color Diagnostics Laboratory Results Results Past 24 Hours Test 06/13/17 17:47 06/13/17 17:48 06/13/17 18:00 06/13/17 19:35 Range/Units Bedside Glucose 125 70-90 mg/dl White Blood Count 4.72 4.8-10.8 K/uL Red Blood Count 3.90 4.2-5.4 M/uL Hemoglobin 12.4 12.0-16.0 g/dL Hematocrit 36.0 37-47 % Mean Corpuscular Volume 92.3 80-100 fL Mean Corpuscular Hemoglobin 31.8 25-34 pg Mean Corpuscular Hemoglobin Concent 34.4 32-36 g/dl Platelet Count 211 130-400 K/uL Mean Platelet Volume 8.4 7.4-10.4 fL Neutrophils (%) (Auto) 47.9 % Lymphocytes (%) (Auto) 38.6 % Monocytes (%) (Auto) 9.3 % Eosinophils (%) (Auto) 3.6 % Basophils (%) (Auto) 0.4 % Neutrophils # (Auto) 2.26 1.4-6.5 K/uL Lymphocytes # (Auto) 1.82 1.2-3.4 K/uL Monocytes # (Auto) 0.44 0.11-0.59 K/uL Eosinophils # (Auto) 0.17 0-0.5 K/uL Basophils # (Auto) 0.02 0-0.2 K/uL RDW Standard Deviation 40.4 36.4-46.3 fL RDW Coefficient of Variation 12.0 11.5-14.5 % Immature Granulocyte % (Auto) 0.2 % Immature Granulocyte # (Auto) 0.01 0.00-0.02 K/uL Prothrombin Time 10.0 9.0-12.0 SECONDS Prothromb Time International Ratio 0.9 0.9-1.1 Activated Partial Thromboplast Time 25.7 21.0-31.0 SECONDS Partial Thromboplastin Ratio 1.0 Sodium Level 134 136-145 mmol/L Potassium Level 3.4 3.5-5.1 mmol/L Chloride Level 100 98-107 mmol/L Carbon Dioxide Level 24 21-32 mmol/L Anion Gap 10.0 19.0 16-25 mmol/L Blood Urea Nitrogen 14 7-18 mg/dl Creatinine 1.10 0.60-1.20 mg/dl Est Creatinine Clear Calc Drug Dose 41.3 ml/min Estimated GFR () 59.3 Estimated GFR (Non- 51.2 BUN/Creatinine Ratio 13.1 10-20 Random Glucose 128 70-99 mg/dl Calcium Level 9.0 8.5-10.1 mg/dl Total Creatine Kinase 280 26-192 U/L Creatine Kinase MB 2.5 0.5-3.6 ng/ml Creatine Kinase MB Ratio 0.9 0-3.0 Troponin I < 0.015 0-0.045 ng/ml Chemistry Specimen Hemolysis Bedside Hemoglobin 12.6 12.0-16.0 g/dl Bedside Hematocrit 37 37-47 % Bedside Sodium 133 135-144 mEq/L Bedside Potassium 3.3 3.3-5.0 mEq/L Bedside Chloride 96 101-112 mEq/L Bedside Total CO2 22 24-31 mEq/l Bedside Blood Urea Nitrogen 15 7-18 mg/dl Bedside Creatinine 1.1 0.6-1.3 mg/dl Bedside Glucose (other) 129 70-99 mg/dl Bedside Ionized Calcium ([place]) 1.09 1.12-1.32 mmol/l Urine Opiates Screen NEG NEG Urine Methadone, Qualitative NEG NEG Urine Barbiturates NEG NEG Urine Phencyclidine (PCP) Level NEG NEG Ur Amphetamine/Methamphetamine NEG NEG MDMA (Ecstasy) Screen NEG NEG Urine Benzodiazepines Screen NEG NEG Urine Cocaine Metabolite NEG NEG Urine Marijuana (THC) NEG NEG Test 06/13/17 20:18 Range/Units Diagnostic Radiology CT head: No acute abnormality Normal EKG Impression Assessment and Plan 71 y/o F Hx HTN, HPL, anxiety/depression. Developed nausea, vomiting and confusion today and was sent to the ER for evaluation. She was exhibiting labored breathing on arrival and was noted to have a blood pressure of 220/110. Her BP was slow to respond to medications in the ER. She was placed on a Nicardipine drip which did serve to normalize her BP. At the time of medical evaluation she does not appear confused. She exhibits lethargy but is able to answer questions appropriately. She complains primarily of marked fatigue. She does recall being nauseous and SOB although this appears to have resolved. Initial labs are notable for hypokalemia and an elevated CK with normal trop. CT head does not show acute abnormalities and a neuro exam is largely nonfocal. She is tachycardic on admission. 1) Altered mental status - appears to have largely resolved with lowering of BP - may have been due to HTN encephalopathy although CVA is in differential. Her exam is basically nonfocal although she may be slightly ataxic on the R. She is admitted with a CVA protocol and will be evaluated by neurology. We have scheduled an MRI/MRA. She is provided with higher dose ASA and will start a Statin. 2) HTN urgency - responded to Nicardipine - will treat with IV B blockers at low dose if needed to maintain SBP < 185 which coincided with symptomatic improvement. We will consult her park guard as apparently she has required treatment for similar in the past. We may want to rule out a Pheo although unlikely - TSH is pending. Echo to discretion of her park guard if no recent on record. We are obtaining serial troponins as well as she c/o acute fatigue and has an elevated CK. We can resume her scheduled meds AM if a CVA is ruled out. 3) Asthma - continue inhalers as prescribed - no evidence of exacerbation presently despite labored breathing on arrival. 4) Tachycardia - reason not clear as she received fluids and an IV B pooja - again TSH is pending - will monitor on tele - We may want to avoid excessive doses of B blockade due to her asthma. She does take Labetalol daily which we have continued with higher parameters. 5) Anxiety/depression - cont Venlafaxine, Clonazepam 6) Mild Hypok on admission - replaced - Mg provided Full code - Heparin prophylaxis Total time for this admit including review of labs, meds, imaging, EKG - discussion with pt/family and ER attending - 45 min Level of Care Telemetry Resuscitation Status FULL RESUSCITATION VTE Prophylaxis VTE Risk Assessment Done? Y/N: Yes Risk Level: Moderate Given or contraindicated: Unfractionated heparin SQ
[2017-06-13] MEDS: LABETALOL HCL 100 MG TAB PO SCH (21:00)
[2017-06-13] MEDS: HEPARIN SOD 5000 UNIT/0.5 ML CARP SQ SCH (21:00)
[2017-06-13 21:12] LABS: URINE APPEARANCE CLEAR (CLEAR); URINE BILIRUBIN NEG (NEG); URINE COLOR YELLOW; URINE NITRITE NEG (NEG); URINE SPECIFIC GRAVITY 1.011 (1.000-1.030); UROBILINOGEN NEG (NEG); ZZURINE CULT IF INDIC CATH NO
[2017-06-13 21:30] VITALS: BP 169/88; PULSE 81; TEMP 36.6; O2SAT 99; Ht 157.5 cm; Wt 60.6 kg
[2017-06-13 21:52] LABS: MANUAL MICROSCOPIC REQUIRED? NO; REVIEW REQ? NO
[2017-06-13] MEDS ORDERED: MAGNESIUM SULFATE 1GM / D5W 1 GM in PREMIXED IN D5W 100 ML IV ONE (22:00)
[2017-06-13 23:22] LABS: THYROID STIMULATING HORMONE 3.45 uIu/ml (0.300-4.500)
[2017-06-13 23:30] VITALS: BP 165/80; PULSE 84; TEMP 36.8; O2SAT 100
[2017-06-14] VITALS (9 sets, daily range): BP systolic 126–188; BP diastolic 66–106; PULSE 71–108; TEMP 36.7–37.7; O2SAT 94–98
[2017-06-14] MEDS ORDERED: LEVALBUTEROL 1.25MG/3ML NEB INH PRN (01:45)
[2017-06-14 06:37] LABS: ESTIMATED AVERAGE GLUCOSE 128 mg/dl; HA1C FLAG Normal (Normal)
[2017-06-14 06:51] LABS: BASO % 0.2 %; BASO ABS # 0.01 K/uL (0-0.2); COMPLETE YES; EOS % 0.2 %; HEMATOCRIT 36.8 % (37-47); IG% 0.2 %; LYMPH % 12.9 %; LYMPH ABS # 0.72 K/uL (1.2-3.4); MEAN CELL VOLUME 92.5 fL (80-100); MEAN CORPUSCULAR HEMOGLOBIN 31.9 pg (25-34); MEAN CORPUSCULAR HGB CONC 34.5 g/dl (32-36); MEAN PLATELET VOLUME 8.3 fL (7.4-10.4); NEUT % 83.5 %; PLATELET COUNT 210 K/uL (130-400); RED BLOOD COUNT 3.98 M/uL (4.2-5.4)
--- NOTE | 2017-06-14 07:10 | DIAGNOSTIC IMAGING REPORT ---
Brain MRA HISTORY: Stroke - Attention to [place] TECHNIQUE: 3-D [id number] MRA of the brain was performed without contrast. COMPARISON STUDY: None. FINDINGS: Hypoplastic distal right vertebral artery. This demonstrates focal severe stenosis at the intracranial portion. The distal left vertebral artery and bilateral intracranial internal carotid arteries are widely patent. Moderate to severe stenosis at the P1/P2 segment junction. The left FIRE PREVENTION CAPTAIN, right MCA, and ACAs are widely patent. No intracranial aneurysm identified. [id number] multifocal narrowing within the left M1 and proximal M2 segments due to the atherosclerotic disease. IMPRESSION: Multifocal stenosis within the [place] as described above including the distal right vertebral artery. Electronically signed by: Tez Thorpe M.D. 06/14/2017 7:09 AM Dictated Date/Time: 06/14/2017 7:05 AM
[2017-06-14 07:21] LABS: BUN/CREATININE RATIO 11.8 (10-20); CALCIUM 9.1 mg/dl (8.5-10.1); CREATININE 0.89 mg/dl (0.60-1.20); MAGNESIUM 2.5 mg/dl (1.8-2.4)
[2017-06-14 07:26] LABS: CHOLESTEROL/HDL RATIO 2.8
--- NOTE | 2017-06-14 07:28 | DIAGNOSTIC IMAGING REPORT ---
BRAIN WITHOUT CONTRAST CLINICAL HISTORY: 71 years-old Female presenting with Stroke. TECHNIQUE: Multisequence, multiplanar MR imaging of the brain was performed without the use of intravenous contrast. IV contrast: None. COMPARISON: CT head from 06/13/2017 and MRI brain from 03/18/2015. FINDINGS: Ventricles and sulci normal in size. Mild T2/FLAIR hyperintensity within the medial left temporal lobe along the course of the hippocampus (series 7 image 16). And retrospect there may have been trace asymmetric FLAIR hyperintensity in the tail of the left hippocampus in comparison to the right in 2014. There is corresponding diffusion hyperintensity in this region with mild restricted diffusion most pronounced in the tail of the hippocampus (series 4 image 12; series 400 image 12). No significant atrophy or mass effect in this region. Periventricular and subcortical white matter T2/FLAIR hyperintensities, nonspecific but likely small vessel ischemic change. No hemorrhage. No extra-axial fluid collection. T2 skull base flow voids preserved. Bone marrow signal intensity within the calvarium within normal limits. IMPRESSION: Subtle abnormality in the left hippocampus with restricted diffusion. The distribution is atypical for ischemia, and acute infarct is considered unlikely. Differential considerations include herpes encephalitis, limbic encephalitis, and seizure related changes. Preliminary findings were reported by Dr. Franco at 4:54 AM. Electronically signed by: Sean Acosta M.D. 06/14/2017 7:26 AM Dictated Date/Time: 06/14/2017 7:15 AM
--- NOTE | 2017-06-14 07:32 | DIAGNOSTIC IMAGING REPORT ---
MRA OF THE NECK WITH AND WITHOUT CONTRAST CLINICAL HISTORY: Stroke. COMPARISON STUDY: None. TECHNIQUE: Unenhanced and contrast-enhanced MRA of the neck was performed. Injection of 6 mL of Gadavist IV was uneventful. NASCET criteria were utilized to estimate the degree of carotid stenosis. FINDINGS: This exam is mildly compromised by motion artifact. However, there is no significant stenosis within the bilateral common carotid, internal carotid and vertebral arteries. The left vertebral artery is dominant and patent. IMPRESSION: Study mildly compromised by motion artifact but no evidence for a significant stenosis within the bilateral common carotid, internal carotid and vertebral arteries. Electronically signed by: Willy Guerra M.D. 06/14/2017 7:31 AM Dictated Date/Time: 06/14/2017 7:27 AM
[2017-06-14] MEDS: LOSARTAN POTASSIUM 50 MG TAB PO SCH (08:37)
[2017-06-14] MEDS: LABETALOL HCL 100 MG TAB PO SCH (08:38)
[2017-06-14] MEDS: VENLAFAXINE HCL XR 37.5 MG CAPXR PO SCH (08:39)
[2017-06-14] MEDS: ATORVASTATIN 40 MG TAB PO SCH (08:39)
[2017-06-14] MEDS: HEPARIN SOD 5000 UNIT/0.5 ML CARP SQ SCH ×2 (08:45→19:58)
[2017-06-14] MEDS ORDERED: ASPIRIN 325 MG ECTAB PO SCH (09:00)
--- NOTE | 2017-06-14 10:45 | Family Medicine Progress Note ---
Progress Note Date of Service Jun 14, 2017. Subjective Pt evaluation today including: conversation w/ patient, conversation w/ family Admitted for HTN urgency yesterday, nausea, vomiting, confusion- treated with nicardipine with resolution of symptoms and improvement of b/p Had a similar episode and admission in 2009 Reports that she has neuropsych testing next week for ongoing symptoms of memory loss - family history of Alzheimer/dementia Has ongoing numbness/tingling for about 6 months, intermittently that she describes as starting at her feet and moving up to her head feels her confusion has improved / at baseline Is compliant with medication has CPAP but non-compliant with machine Reports fatigue Denies chest pain, shortness of breath, numbness/tingling, headaches, vision changes, currently Constitutional: + fatigue, No fever, No chills, No sweats Eyes: No worsening of vision ENT: No hearing loss Respiratory: No cough, No sputum, No wheezing, No shortness of breath, No dyspnea on exertion, No dyspnea at rest Cardiovascular: No chest pain, No PND, No edema, No palpitations Abdomen: + diarrhea (chronic), No pain, No nausea, No vomiting Female : No dysuria, No urinary frequency Neurologic: + memory loss, No paralysis, No weakness, No numbness/tingling, No vertigo, No balance problems Psychiatric: + anxiety Objective Physical Exam General Appearance: no apparent distress Eyes: normal inspection, PERRL, EOMI ENT: hearing grossly normal Neck: supple, no adenopathy, thyroid normal Respiratory/Chest: lungs clear, normal breath sounds, no respiratory distress, no accessory muscle use Cardiovascular: regular rate, rhythm, no edema Abdomen: normal bowel sounds, non tender, soft Extremities: normal range of motion, non-tender, normal inspection, no pedal edema, no calf tenderness Neurologic/Psychiatric: obiee obia solution architect II-XII nml as tested, no motor/sensory deficits, alert, normal mood/affect Assessment and Plan 71 y/o F with h/o of HTN, CVA, HPL, severe asthma, anx/depression who presented with n/v + confusion, found to be in htn urgency. Initially treated with Nicardipine that seemed to reduce her pressures adequately. Currently transitioned to home meds. During rounds, we discussed with neurology about her MRI findings, concerning for inflammation/infectious etiology. Family agrees with doing LP and EEG At around 4 pm, nurses called about patient being anxious after the LP. Dr. Smith evaluated the patient and she was given 0.5 of ativan. Also noted blood pressures to be elevated again, meds changed by Cardiology at around 5 pm, there was concern about hallucinations. I evaluated the patient and there was concern for alcohol withdrawal. ( admits that she often has too much drink). She was seeing flashing colors, faces in the ceiling, and was confused (did not know why she was here, or the time, or what procedure etc) . Last drink was 2 nights ago Altered mental status, waxing/waning ? HTN encephalopathy vs. CVA (less likely) vs. infectious etiology (also less likely, afebrile, no white count etc) Reviewed Imaging: Brain MRI: Abnormality in left hippocampus atypical for ischemia, ? herpes encephalitis vs limbic encephalitis vs. seizure Head MRA- stenosis of [place]- distal right Vertebral artery Neck MRA- normal carotids Head CT- Negative LP under fluoroscopy EEG Appreciate neurology reccs Change aspirin to Plavix 75 mg. start atorvastatin HTN urgency (possibly related to alcohol) Improved with Nicardipine Currently on Hydralazine, Cozaar, Carvedilol Cardiology consulted, appreciate reccs Alcohol withdrawal Ci[place] score of 11 Banana bag, Librium and IV fluids 1:1 Ativan prn Discharge planning Tachycardia likely 2/2 to anxiety/withdrawal Improved during stay Glucose intolerance A1c of 6.1 Depending on how long she has been prediabetic and her willingness to correct with lifestyle changes May discuss starting pharmacologic glycemic control Sleep apnea: Encourage consistent use of CPAP machine at home Also maybe contributing to HTN and risk of CVA Ordered for use in hospital Memory loss (pre-existing) Neuropsych testing scheduled next week family history of Alzheimer/dementia Anxiety /depression Continue venlafaxine Asthma, stable DVT proph Heparin sq Code: Full History Resident Physician Supervision Note: I was present with Dr. Fairchild during the history and exam. I discussed the case with the resident and agree with the findings and plan as documented in the note. Any exceptions or clarifications are listed here. On evaluation ~[address] Hu in room, patient is standing/sitting 2/2 chronic lower back pain. Reviewed results of MRI with patient, discussed potential options (LP, EEG, etc) and is in agreement with same. Presently reports no headache, CP/SOB, palpitations, sensory changes or confusion. Baseline mental status per spouse. EtOH hx 2 glasses of wine per night, 1 bottle at night once per week per daughter. Re-evaluation at 1600 - patient appears tremulous and agitated, though oriented x 3. Says this happens frequently and was similar to previous episode prior to onset of HTN. Reports some paresthesias distally which wax and wane and disconcert her. She states that these episodes are familiar and have happened repeatedly in the past, though she has never sought medical attention for them before. Her daughter confirms etOH hx as noted above. Pt states no etOH since Sunday. General Appearance: WD/WN, mild distress Eye Exam: bilateral eye PERRL, bilateral eye EOMI Neck: non-tender, full range of motion, supple Respiratory: chest non-tender, lungs clear, normal breath sounds, no respiratory distress Cardiovascular: normal peripheral pulses, regular rate, rhythm, no edema, no murmur Gastrointestinal: normal bowel sounds, non tender, soft Extremities: normal range of motion, non-tender Neurologic/Psychiatric: obiee obia solution architect II-XII nml as tested, alert, oriented x 3, other ( anxious mood) Assessment/Plan 71 y/o female h/o HTN p/w hypertensive emergency Tremulousness - likely 2/2 anxiety v. underlying etOH withdrawal - examination at time of witnessed episode showed BP of 140/100 (likely cuff positioning) which resolved with repositioning, deep breathing and repeat check. The patient' s symptoms completely resolved with relaxation exercise while I was present. Trial of 0.5mg ativan and re-evaluation in a few hours. Abnormal MRI - neurology aware, input appreciated - LP and EEG today for evaluation of atypical limbic findings. Continue statin therapy, transition to plavix HTN Urgency - ?related to episodic anxiety v. etOH withdrawal - improved w/ nicardipine and tolerating scheduled medications, worse w/ repeat anxiety. May uptrend antihypertensive medications. Hydralazine 5mg IV PRN Tachycardia - improved (HR 88 w/ anxiety episode) Asthma - at baseline - continue chronic medications Anxiety/depression - cont Venlafaxine, Clonazepam
--- NOTE | 2017-06-14 11:03 | Neurology Consultation ---
Neurology Consultation Date of Consultation: Jun 14, 2017. Attending Physician: Earl Smith MD Primary Care Physician: Earl Chan M.D. Reason for Consultation: Patient is a 71-year-old, who was asked to see the request of Dr. Aguirre, for neurologic consultation regarding new onset stroke versus other History of Present Illness Source: patient, family, spouse, clinic records, hospital records Patient has had hypertension for approximately 25 years. She has had anxiety and depression for many years as well. This waxes and wanes over time and sometime she is on medication and sometimes she is not. Currently, she has been on a very low dose of venlafaxine at 37.5 mg a day. The patient has a history of chronic neck pain post disc removed by Dr. Sanders 10 years ago. She has chronic low back pain with pain radiating into the right leg followed by Dr. Griffin, but there is concern that she needs surgery for her low back in future. In 2009 the patient had some sort of episode with chest pain and was at [facility] in [place]. I do not have these records but there was a concern that maybe she had some form of NV, and was diagnosed with [place] cardiomyopathy. As an outpatient, her blood pressure readings were very good including about 6 weeks ago being 122/80. She's been followed closely as an outpatient by Dr. Gabriel. She's been on baby aspirin daily, since. 2 years ago, the patient was diagnosed with sleep apnea and was given C Pap. She snores at night according to her spouse who is present at bedside. She only uses C Pap about once every 2 weeks. The patient tells me she has 1 or 2 glasses of wine each evening. Later on her daughter tells me that the patient probably consumes up to a bottle of wine per day. This is been going on for many months and years. The patient tells me that over the last 1-1/2 years she has had episodes ( perhaps 6 throughout this whole time frame) of shortness of breath and tingling in her whole body starting in her toes and radiating up her legs trunk arms and head including all parts symmetrically. It will last about 15 minutes and then resolved. She does not have confusion or pain during these episodes. On June 13, sometime during the day she had the onset of some nausea and shortness of breath. She called her daughter (who is present in the room currently) and according to the daughter, this sounded very confused. She did not know who she was talking to her and her speech didn't make sense. It was fluent however. She had no complaint of headache but did have a little bit of chest pain. On June 13 she arrived at the emergency room at 1730 hours with a temperature of 36.6, pulse 71, respiratory rate 25, blood pressure 216/92 and O2 saturation 99%. Patient was confused and short of breath in the emergency room. Later on, blood pressure was 220/110. She was put on a nicardipine drip and blood pressure came down to better, more normal levels. Following this she became much less confused. No focal deficits were noted on exam. CT scan of the head was unremarkable. Chest x-ray was unremarkable. CBC showed some very mild anemia. Chem profile showed hyponatremia of 134, later 130. Glucose was mildly elevated hemoglobin A1c was 6.1. Cholesterol was elevated over 200. MRI of the brain showed left medial temporal/hippocampal signal change on diffusion imaging and T2 imaging. 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 Because of its signal characteristics and vascular distribution is not typical of a stroke. In addition it is not typical of hypertensive changes or alcoholic abuse changes. MR angiography of the head and neck showed some scattered areas of focal stenosis as well as a plastic distal right vertebral vessel. I reviewed MRI of the brain films and report as well as laboratory study values with the patient and her family. Currently, the patient is much less confused but still has short-term memory and detail recall. She complains of low back pain and occasional right lower extremity pain. She denies numbness or tingling or weakness in the limbs, incontinence, or vision problems. She does not have a headache and has been afebrile. Past Medical/Surgical History Medical Problems: (1) Hypertensive emergency Status: Acute (2) Metabolic encephalopathy Status: Acute Hypertension: This has been controlled over the last few months up until this admission. History of asthma History of anxiety and depressive disorder History of [place] cardiomyopathy 2009, followed closely by Dr. Gabriel cardiology Memory dysfunction involving mostly short-term processes over the last 8 years of a progressive nature. Irritable bowel syndrome Dyslipidemia Post cervical spine disc removal surgery by Dr. Sanders 10 years ago Foot surgery by Dr. Arceo in the past Post right wrist fracture surgery 2007 and tonsillectomy Family History Father age 82 with Alzheimer's disease and also had hypertension and cardiac disease Mother age 54 of severe COPD and was a cigarette smoker. Father: lung disease, HTN, heart disease, pertinent history of Social History Patient quit smoking 39 years ago. Patient tells me that she drinks 1 or 2 glasses of wine every day most days for many years. Her daughter, later, told me that the patient drinks up to a bottle of wine a day most days. 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 She is to exercise by walking but has not been doing this very much because of her chronic back pain. Smoking Status: Former smoker Smokeless Tobacco Use: No Alcohol Use: heavy Drug Use: none Marital Status: Housing Status: lives with significant other Occupation Status: retired Allergies Coded Allergies: Levofloxacin (Verified Allergy, Severe, ANAPHYLAXIS, 01/05/17) Quinolones (Verified Allergy, Severe, RASH, 01/05/17) Avelox and levaquin Molds and Smuts (Verified Allergy, Mild, SEASONAL ALLERGY SYMPTOMS, 01/05/17 ) Amoxicillin (Verified Allergy, Unknown, Nausea, 06/13/17) Clavulanic Acid (Verified Allergy, Unknown, Nausea, 06/13/17) Moxifloxacin (Verified Allergy, Unknown, Nausea, 06/13/17) Doxycycline (Verified Adverse Reaction, Intermediate, nausea, 01/05/17) Erythromycin (Verified Adverse Reaction, Mild, N/V, 01/05/17) Penicillins (Verified Adverse Reaction, Mild, AUGMENTIN-GI UPSET, 01/05/17) GI UPSET Current Inpatient Medications Current Inpatient Medications Medications (Trade) Dose Ordered Sig/Breanne Route Start Time Stop Time Status Last Admin Dose Admin Nicardipine HCl 25 mg/Sodium Chloride 250 ml @ 0 mls/hr Q0M PRN IV 06/13/17 19:15 07/13/17 19:14 06/13/17 19:50 75 MLS/HR Heparin Sodium (Porcine) (Heparin Sq 5000 Unit/0.5ml) 5,000 unit Q12 SQ 06/13/17 21:00 07/13/17 20:59 06/14/17 08:45 5,000 UNIT Acetaminophen (Tylenol Tab) 650 mg Q4H PRN PO 06/13/17 20:15 07/13/17 20:14 Al Hydrox/Mg Hydrox/Simethicone (Maalox Max Susp) 15 ml Q4H PRN PO 06/13/17 20:15 07/13/17 20:14 Magnesium Hydroxide (Milk Of Magnesia Susp) 30 ml Q12H PRN PO 06/13/17 20:15 07/13/17 20:14 Ondansetron HCl (Zofran Inj) 4 mg Q6H PRN IV 06/13/17 20:15 07/13/17 20:14 Morphine Sulfate (MoRPHine SULFATE INJ) 2 mg Q30M PRN IV 06/13/17 20:15 06/27/17 20:14 Polyethylene (Miralax Powder Packet) 17 gm DAILY PRN PO 06/13/17 20:15 07/13/17 20:14 Aspirin (Ecotrin Tab) 325 mg QAM PO 06/14/17 09:00 07/14/17 08:59 06/14/17 08:37 325 MG Clonazepam (Klonopin Tab) 0.5 mg TID PRN PO 06/13/17 20:15 07/13/17 20:14 Labetalol HCl (Normodyne Tab) 50 mg BID PO 06/13/17 21:00 07/13/17 20:59 06/14/17 08:38 50 MG Venlafaxine HCl (effeXOR EXTENDED REL CAP) 37.5 mg DAILY PO 06/14/17 09:00 07/14/17 08:59 06/14/17 08:39 37.5 MG Atorvastatin Calcium (Lipitor Tab) 40 mg QAM PO 06/14/17 09:00 07/14/17 08:59 06/14/17 08:39 40 MG Miscellaneous Information (Pharmacist Discharge Med Rec Consult) 1 ea UD PRN N/A 06/13/17 20:30 07/13/17 20:29 Losartan Potassium (coZAAR TAB) 100 mg QAM PO 06/14/17 09:00 07/14/17 08:59 06/14/17 08:37 100 MG Levalbuterol (Xopenex 1.25MG/ 3ML Neb) 1.25 mg Q4H PRN INH 06/14/17 01:45 07/14/17 01:44 Review of Systems Constitutional: + weakness, + fatigue, No fever Eyes: No worsening of vision, No diplopia ENT: No hearing loss, No tinnitus Respiratory: No cough, No shortness of breath Cardiovascular: No chest pain, No palpitations Abdomen: No pain, No nausea Musculoskeletal: + joint pain, No muscle pain Genitourinary - Female: No dysuria, No urinary incontinence Neurologic: + memory loss, + weakness, No numbness/tingling, No vertigo, No balance problems Psychiatric: + depression symptoms, + anxiety Endocrine: + fatigue Hematologic / Lymphatic: No abnormal bleeding/bruising Integumentary: No rash Allergic / Immunologic: No hives Physical Exam Vital Signs (Past 24 Hrs): Date Time Temp Pulse Resp B/P (MAP) Pulse Ox O2 Delivery O2 Flow Rate FiO2 06/14/17 08:00 Nasal Cannula 2.0 06/14/17 07:15 36.8 108 20 176/100 (125) 97 Room Air 06/14/17 04:00 37.3 84 16 169/79 (109) 96 Room Air 06/14/17 04:00 Nasal Cannula 2.0 06/14/17 00:01 Nasal Cannula 2.0 06/13/17 23:30 36.8 84 16 165/80 (108) 100 Nasal Cannula 2.0 06/13/17 21:30 36.6 81 18 169/88 99 Nasal Cannula 2.0 06/13/17 20:53 92 16 147/80 96 06/13/17 20:31 98 16 169/84 96 Nasal Cannula 2.0 06/13/17 20:27 95 16 164/89 97 Nasal Cannula 2.0 06/13/17 20:10 98 16 143/72 97 Nasal Cannula 2.0 06/13/17 20:05 141/72 06/13/17 20:00 107 16 140/72 96 Nasal Cannula 2.0 06/13/17 19:55 107 16 134/85 97 Nasal Cannula 2.0 06/13/17 19:50 107 142/64 06/13/17 19:45 118 148/75 06/13/17 19:40 118 16 159/69 97 Nasal Cannula 2.0 06/13/17 19:25 108 16 169/86 96 Nasal Cannula 2.0 06/13/17 19:15 106 16 169/86 96 Nasal Cannula 2.0 06/13/17 19:05 109 16 176/88 97 Nasal Cannula 2.0 06/13/17 18:50 108 18 195/103 97 06/13/17 18:45 99 187/92 06/13/17 18:40 103 186/93 97 Nasal Cannula 2.0 06/13/17 18:35 100 186/92 06/13/17 18:30 187/98 06/13/17 18:29 97 97 Nasal Cannula 2.0 06/13/17 18:26 189/86 06/13/17 18:24 105 96 Nasal Cannula 2.0 06/13/17 18:20 85 Room Air 06/13/17 18:20 96 Nasal Cannula 2.0 06/13/17 18:19 96 94 06/13/17 18:16 171/89 06/13/17 18:14 97 92 06/13/17 18:10 182/106 06/13/17 18:09 83 96 06/13/17 18:04 190/126 06/13/17 18:03 73 96 06/13/17 18:01 201/93 06/13/17 17:58 71 98 06/13/17 17:53 73 99 06/13/17 17:48 69 99 06/13/17 17:45 199/92 06/13/17 17:34 216/92 06/13/17 17:30 36.6 71 25 216/92 99 Room Air 06/13/17 17:30 99 Room Air Patient is right-handed. The patient is awake and alert. Speech is normal without aphasia or dysarthria. Mentation and thought processes are reasonable with normal conversation but she is forgetful with short-term memory and can get easily confused. Otherwise, she is pleasant and cooperative. Mood is reasonable although she is somewhat down and is somewhat flat affect. Appearance and grooming are normal. The discs are sharp with positive venous pulsations. There are no exudates, hemorrhages, or blood vessel changes seen. Pupils are 4mm bilaterally and reactive to light. Extraocular eye muscles are intact without nystagmus. Visual acuity and visual parada seem normal grossly to confrontation. There are no deficits to sensation of the face bilaterally. Corneal reflexes are positive bilaterally. Facial strength and symmetry is normal bilaterally. Hearing seems intact grossly to voice and finger rub. Palate moves well without asymmetry. There is normal sternocleidomastoid and trapezius strength bilaterally. Tongue is midline with good strength bilaterally. Neck is with full range of motion without discomfort. There are no cervical bruits. There are no cranial or ocular bruits. Heart is without murmur. Cervical, thoracic, and lumbar spine are nontender to palpation. Gait is normal. There is good are swing, turn, stance, and balance. Stance is normal eyes open or closed. With outstretched arms there is no drift. There are no resting tremors. She has some very mild bilateral postural and action tremor area There is no ataxia with [id number] testing. There is good facility in the hands. There are no abnormal involuntary movements noted. Motor strength is 5/5 diffusely in the arms bilaterally including deltoids, biceps, brachioradialis, wrist flexors and extensors, wage hand, and intrinsic hand muscles. Motor strength is 5/5 diffusely in the legs bilaterally including hip flexors, quadriceps, hamstring, gastrocnemius, tibialis anterior, tibialis posterior, and peroneii muscles bilaterally. Toe extensors are normal and there is good bulk in the extensor digitorum brevis muscle bilaterally. The limbs have good tone without rigidity or spasticity, and there is no atrophy noted. Muscle bulk is normal, there is no tenderness, no myotonia noted to percussion, and no fasciculations seen. Sensory examination is intact to pin and touch throughout all four limbs. Reflexes are 2/4 in the biceps, triceps, brachioradialis, and quadriceps tendons bilaterally. Achilles tendon reflexes are absent bilaterally. Toes are downgoing with plantar stimulation bilaterally. Peripheral pulses are present and of normal quality distally in all four limbs. There is no peripheral edema noted. Laboratory Results Past 24 Hours: 06/14/17 06:23 Red Blood Count 3.98, Mean Corpuscular Volume 92.5, Mean Corpuscular Hemoglobin 31.9, Mean Corpuscular Hemoglobin Concent 34.5, Mean Platelet Volume 8.3, Neutrophils (%) (Auto) 83.5, Lymphocytes (%) (Auto) 12.9, Monocytes (%) (Auto) 3.0, Eosinophils (%) (Auto) 0.2, Basophils (%) (Auto) 0.2, Neutrophils # (Auto) 4.68, Lymphocytes # (Auto) 0.72, Monocytes # (Auto) 0.17, Eosinophils # (Auto) 0.01, Basophils # (Auto) 0.01 06/14/17 06:23 Test 06/13/17 17:47 06/13/17 17:48 06/13/17 18:00 06/13/17 19:35 Bedside Glucose 125 mg/dl (70-90) Prothrombin Time 10.0 SECONDS (9.0-12.0) Prothromb Time International Ratio 0.9 (0.9-1.1) Activated Partial Thromboplast Time 25.7 SECONDS (21.0-31.0) Partial Thromboplastin Ratio 1.0 Estimated Average Glucose 128 mg/dl Hemoglobin A1c 6.1 % (4.5-5.6) Total Creatine Kinase 280 U/L (26-192) Creatine Kinase MB 2.5 ng/ml (0.5-3.6) Creatine Kinase MB Ratio 0.9 (0-3.0) Chemistry Specimen Hemolysis Bedside Hemoglobin 12.6 g/dl (12.0-16.0) Bedside Hematocrit 37 % (37-47) Bedside Sodium 133 mEq/L (135-144) Bedside Potassium 3.3 mEq/L (3.3-5.0) Bedside Chloride 96 mEq/L (101-112) Bedside Total CO2 22 mEq/l (24-31) Bedside Blood Urea Nitrogen 15 mg/dl (7-18) Bedside Creatinine 1.1 mg/dl (0.6-1.3) Bedside Glucose (other) 129 mg/dl (70-99) Bedside Ionized Calcium ([place]) 1.09 mmol/l (1.12-1.32) Urine Color YELLOW Urine Appearance CLEAR (CLEAR) Urine pH 8.0 (4.5-7.5) Urine Specific [place] 1.011 (1.000-1.030) Urine Protein NEG (NEG) Urine Glucose (UA) NEG (NEG) Urine Ketones NEG (NEG) Urine Occult Blood TRACE (NEG) Urine Nitrite NEG (NEG) Urine Bilirubin NEG (NEG) Urine Urobilinogen NEG (NEG) Urine Leukocyte Esterase NEG (NEG) Urine WBC (Auto) 1-5 /hpf (0-5) Urine RBC (Auto) 0-4 /hpf (0-4) Urine Hyaline Casts (Auto) 0 /lpf (0-5) Urine Epithelial Cells (Auto) 10-20 /lpf (0-5) Urine Bacteria (Auto) NEG (NEG) Urine Opiates Screen NEG (NEG) Urine Methadone, Qualitative NEG (NEG) Urine Barbiturates NEG (NEG) Urine Phencyclidine (PCP) Level NEG (NEG) Ur Amphetamine/Methamphetamine NEG (NEG) MDMA (Ecstasy) Screen NEG (NEG) Urine Benzodiazepines Screen NEG (NEG) Urine Cocaine Metabolite NEG (NEG) Urine Marijuana (THC) NEG (NEG) Test 06/13/17 22:10 06/14/17 06:23 Thyroid Stimulating Hormone (TSH) 3.450 uIu/ml (0.300-4.500) White Blood Count 5.60 K/uL (4.8-10.8) Red Blood Count 3.98 M/uL (4.2-5.4) Hemoglobin 12.7 g/dL (12.0-16.0) Hematocrit 36.8 % (37-47) Mean Corpuscular Volume 92.5 fL (80-100) Mean Corpuscular Hemoglobin 31.9 pg (25-34) Mean Corpuscular Hemoglobin Concent 34.5 g/dl (32-36) Platelet Count 210 K/uL (130-400) Mean Platelet Volume 8.3 fL (7.4-10.4) Neutrophils (%) (Auto) 83.5 % Lymphocytes (%) (Auto) 12.9 % Monocytes (%) (Auto) 3.0 % Eosinophils (%) (Auto) 0.2 % Basophils (%) (Auto) 0.2 % Neutrophils # (Auto) 4.68 K/uL (1.4-6.5) Lymphocytes # (Auto) 0.72 K/uL (1.2-3.4) Monocytes # (Auto) 0.17 K/uL (0.11-0.59) Eosinophils # (Auto) 0.01 K/uL (0-0.5) Basophils # (Auto) 0.01 K/uL (0-0.2) RDW Standard Deviation 40.5 fL (36.4-46.3) RDW Coefficient of Variation 11.9 % (11.5-14.5) Immature Granulocyte % (Auto) 0.2 % Immature Granulocyte # (Auto) 0.01 K/uL (0.00-0.02) Anion Gap 7.0 mmol/L (3-11) Est Creatinine Clear Calc Drug Dose 47.2 ml/min Estimated GFR () 76.6 Estimated GFR (Non- 66.1 BUN/Creatinine Ratio 11.8 (10-20) Calcium Level 9.1 mg/dl (8.5-10.1) Magnesium Level 2.5 mg/dl (1.8-2.4) Troponin I 0.023 ng/ml (0-0.045) Triglycerides Level 82 mg/dl (0-150) Cholesterol Level 291 mg/dl (0-200) HDL Cholesterol 105 mg/dl LDL Cholesterol, Calculated 170 mg/dl VLDL Cholesterol, Calculated 16 mg/dl Cholesterol/HDL Ratio 2.8 Imaging BRAIN WITHOUT CONTRAST CLINICAL HISTORY: 71 years-old Female presenting with Stroke. TECHNIQUE: Multisequence, multiplanar MR imaging of the brain was performed without the use of intravenous contrast. IV contrast: None. COMPARISON: CT head from 06/13/2017 and MRI brain from 03/18/2015. FINDINGS: Ventricles and sulci normal in size. Mild T2/FLAIR hyperintensity within the medial left temporal lobe along the course of the hippocampus (series 7 image 16). And retrospect there may have been trace asymmetric FLAIR hyperintensity in the tail of the left hippocampus in comparison to the right in 2014. There is corresponding diffusion hyperintensity in this region with mild restricted diffusion most pronounced in the tail of the hippocampus (series 4 image 12; series 400 image 12). No significant atrophy or mass effect in this region. Periventricular and subcortical white matter T2/FLAIR hyperintensities, nonspecific but likely small vessel ischemic change. No hemorrhage. No extra-axial fluid collection. T2 skull base flow voids preserved. Bone marrow signal intensity within the calvarium within normal limits. IMPRESSION: Subtle abnormality in the left hippocampus with restricted diffusion. The distribution is atypical for ischemia, and acute infarct is considered unlikely. Differential considerations include herpes encephalitis, limbic encephalitis, and seizure related changes. Preliminary findings were reported by Dr. Franco at 4:54 AM. Electronically signed by: Sean Acosta M.D. 06/14/2017 7:26 AM Impression 1. Acute encephalopathy June 13. This is markedly improved. I suspect her severe, sudden hypertension is responsible for this. There may be multiple other contributing factors however. She has hyponatremia of a mild nature as well as some mild hyperglycemia. These, however, are not abnormal enough to cause this kind of confusion. There is no evidence of stroke on examination. The MRI findings are not consistent with stroke and I reviewed these with Dr. Acosta the radiologist. 2. 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 3. Hypertension Typically this is controlled easily as an outpatient but she is had a marked increase on admission. 4. Old small vessel ischemic changes of a moderate nature seen on MRI. These would be secondary to her chronic history of hypertension and other risk factors for small vessel ischemic disease. This has been despite 81mg ASA daily In addition she has multifocal areas of stenosis scattered cerebrally as noted by MR angiography of the head 5. Mild elevated glucose, hemoglobin A1c with no history of diabetes 6. Hyponatremia (130) of uncertain etiology 7. Essential tremor, mild 8. Cognitive dysfunction over the last 8 years, thought to be progressive by family members I suspect she has a dementia which is probably multifactorial including vascular and excessive alcohol usage. 9. History of sleep apnea. She is not using C Pap on a regular basis. Sleep apnea puts her at risk for increased cerebral and cardiac issues. Plan 1. Lumbar puncture to evaluate for infectious or inflammatory conditions 2. EEG routine to evaluate for focal activity left temporal lobe 3. Control blood pressure as you're doing 4. The patient has neuropsychological testing scheduled for next week at [place]. She should keep this appointment 5. Discontinue all alcohol usage. 6. Use C Pap machine regularly for sleep apnea 7. Consider Plavix 75 mg a day instead of 81 mg aspirin and blue of the focal stenoses seen on MR angiography as well as her small vessel ischemic change. 8. When able, initiate exercise routine I will make additional recommendations after the above tests. I spoke at length with the patient and her family present at bedside and Dr. Smith regarding differential diagnosis and treatment options. I spent a total of 120 minutes with this case.
--- NOTE | 2017-06-14 11:13 | Cardiology Consultation ---
Cardiology Consultation Date of Consultation: Jun 14, 2017 History of Present Illness Tasha Mckeon is a 71 year old female seen in cardiology consultation per the request of Dr Aguirre for the evaluation of hypertensive urgency. The patient is well known to the undersigned as I have followed her as an outpatient since transitioning care to me after Dr Thomas of our practice retired in 2011. I had also seen her during an admission in 2009 as summarized below. Her most recent outpatient cardiology follow-up visit was on 05/02/17 and at that time she had been feeling well from a cardiac standpoint. She denied any chest discomfort or shortness of breath. Per review of my note her only general medical concern at that time was that she was concerned about her memory and she noted that she has a family history of dementia. Her cardiac history is notable for a presentation with severe hypertension in 2009 along with elevated cardiac enzymes, and septal and apical wall motion abnormality on echocardiogram. I actually seen her in hospital consultation at that time. Have per my note, she had no significant EKG changes. She was transferred to [facility] for further evaluation where she underwent cardiac catheterization that revealed mild nonobstructive CAD in July 2010 with no culprit stenosis found. She was subsequently diagnosed with Takosubo cardiomyopathy(stress discarded myopathy, left apical ballooning syndrome). She underwent follow-up stress testing in August 2010 during which time she exercised with above average workload with normal rest and normal stress wall motion. Her most recent resting echocardiogram had been in 2011. At that time normal left ventricular wall motion was noted with normal left ventricular ejection fraction of 55-59%. Grade 1 diastolic dysfunction was noted. Mild aortic valve regurgitation was noted. Mild mitral regurgitation was noted. The history today was obtained from review of her chart, interview with the patient, her , and her stepdaughter overall the bedside. The patient was apparently observed to be in her normal state of health the morning by her . In the afternoon he tried to call her about several things was not able to contact her. Ultimately the patient's stepdaughter went to check on her and just after 5 PM. Tasha was found in bed. She was confused and did not recognize her stepdaughter. She was observed to have an elevated respiratory rate. And EMS was summoned and she was brought to the emergency room. Her blood pressure on arrival was elevated at 216/92. She was placed on a nicardipine infusion with subsequent improvement and overnight she had several blood pressures as low as though 140/70 range. Most recently as 7:15 this morning she had trended back up to 176/100 off of IV medication. The patient's mental status is starting to improve. She is not quite back to herself. She does recollect that yesterday she felt a tingling sensation overcome her body before she went down and felt confused. She has had episodes similar to this for the last year and a half. Thus far she has had an MRI of the brain revealing diffusion hyperintensity in the region of the hippocampus is atypical for ischemia per the radiology report. Differential diagnosis listed in the MRI report included herpes encephalitis, limbic encephalitis, seizure related changes. Past Medical/Surgical History Problem List: Medical Problems: (1) AC MYOCARDIAL INFARCT,SUBENDO INFARCT,INITIAL EPIS (2) Altered mental status (3) ASTHMA, UNSPECIFIED (4) HYPERLIPIDEMIA NEC/NOS (5) Hypertensive urgency (6) IRRITABLE BOWEL SYNDROME History Past Medical History: 1. Presentation in 2009 with hypertension, apical echo wall motion abnormality , elevated cardiac enzymes, no culprit on coronary angiography, consistent with Taksosubo cardiomyopathy, with echocardiographic changes resolved on follow-up echocardiograms later in 2009 and 2011 2. Well-controlled hypertension on chronic doses of her medications including labetalol 50 mg twice a day, losartan 100 mg daily, triamterene/HCTZ 37??5/25 mg daily 3. History of immunoglobulin deficiency. Past Surgical History: Cardiac catheterization as noted above Social History: Alcohol use, patient admits to 2 glasses of wine per day, per family, perhaps there is more significant alcohol use. She is . She lives with her family. Family History: Hypertension, dementia Review Of Systems See above for pertinent positives & negatives. A total of 10 systems reviewed and were otherwise negative. Allergies Coded Allergies: Levofloxacin (Verified Allergy, Severe, ANAPHYLAXIS, 01/05/17) Quinolones (Verified Allergy, Severe, RASH, 01/05/17) Avelox and levaquin Molds and Smuts (Verified Allergy, Mild, SEASONAL ALLERGY SYMPTOMS, 01/05/17 ) Amoxicillin (Verified Allergy, Unknown, Nausea, 06/13/17) Clavulanic Acid (Verified Allergy, Unknown, Nausea, 06/13/17) Moxifloxacin (Verified Allergy, Unknown, Nausea, 06/13/17) Doxycycline (Verified Adverse Reaction, Intermediate, nausea, 01/05/17) Erythromycin (Verified Adverse Reaction, Mild, N/V, 01/05/17) Penicillins (Verified Adverse Reaction, Mild, AUGMENTIN-GI UPSET, 01/05/17) GI UPSET Medications Reported Home Medications Medications Dose Route/Sig Max Daily Dose Days Date Category Dose Instructions Hizentra (Immune Globulin (Human) Subcut) 4 Gm/20 Ml Inj 1 Dose SQ WK 06/13/17 Reported Calcium 600 + D 600-200 mg-Unit (Calcium Carbonate-Cholecalcife) 1 Tab Tab 1 Tab PO BID 06/13/17 Reported Clonazepam 0.5 Mg Tab 0.5 Mg PO TID PRN 06/13/17 Reported Potassium Chloride Er (Potassium Chloride Microencaps) 20 Meq Tab 20 Meq PO DAILY 06/13/17 Reported Cozaar (Losartan Potassium) 100 Mg Tab 100 Mg PO DAILY 06/13/17 Reported Ventolin Hfa (Albuterol) 200 Puffs/77432 Mcg Aers 2 Puffs INH Q4H PRN 06/13/17 Reported Zolpidem Tartrate 10 Mg Tab 10 Mg PO HS PRN 06/13/17 Reported Venlafaxine Extended Rel (Venlafaxine Hcl) 37.5 Mg Cap 37.5 Mg PO DAILY 06/13/17 Reported Levalbuterol HCl (Levalbuterol) 1.25 Mg/3 Ml Nebu 1.25 Mg NEB Q4H 06/13/17 Reported Dyazide 37.5MG/25MG (Triamterene/HCTZ) Cap 1 Cap PO DAILY 01/05/17 Reported Mvi With Minerals (Multivitamins/Minerals) Tab 1 Tab PO DAILY 01/05/17 Reported Labetalol HCl 100 Mg Tab 50 Mg PO BID 01/05/17 Reported Epipen (Epinephrine) 0.3 Mg/0.3 Ml Inj 0.3 Mg IM UD PRN 01/05/17 Reported FOR LIFE THREATENING ALLERGY Aspirin Ec (Aspirin) 81 Mg Tab 81 Mg PO DAILY 01/05/17 Reported Physical Exam Vital Signs (Last 8hrs): Last 8 Hrs Date Time Temp Pulse Resp B/P (MAP) Pulse Ox O2 Delivery O2 Flow Rate FiO2 06/14/17 08:00 Nasal Cannula 2.0 06/14/17 07:15 36.8 108 20 176/100 (125) 97 Room Air 06/14/17 04:00 37.3 84 16 169/79 (109) 96 Room Air 06/14/17 04:00 Nasal Cannula 2.0 General Appearance: Alert and Oriented x3. NAD. Head: Normocephalic Atraumatic. Eyes: PERRLA, EOMI, conjunctiva and sclera clear Neck: Supple. No carotid bruits noted. No JVD. No HJD. Respiratory: Breath sounds clear to auscultation bilaterally. No w/r/r. Cardiovascular: Reg rate and rhythm. S1 and S2 noted. No murmurs, rubs, gallops. PMI non displace. Abdomen: Normal bowel sounds, soft nontender. no abdominal bruits. Extremities: No edema, no clubbing or cyanosis. distal pulses 2/4 bilaterally. Neuro: Somewhat lethargic, but able to provide history, and follows commands focal deficits Data Last Resulted 06/14/17 06:23 Red Blood Count 3.98, Mean Corpuscular Volume 92.5, Mean Corpuscular Hemoglobin 31.9, Mean Corpuscular Hemoglobin Concent 34.5, Mean Platelet Volume 8.3, Neutrophils (%) (Auto) 83.5, Lymphocytes (%) (Auto) 12.9, Monocytes (%) (Auto) 3.0, Eosinophils (%) (Auto) 0.2, Basophils (%) (Auto) 0.2, Neutrophils # (Auto) 4.68, Lymphocytes # (Auto) 0.72, Monocytes # (Auto) 0.17, Eosinophils # (Auto) 0.01, Basophils # (Auto) 0.01 Last Resulted 06/14/17 06:23 Past 24 Hours Test 06/13/17 17:48 06/13/17 22:10 06/14/17 06:23 Range/Units Creatine Kinase MB 2.5 0.5-3.6 ng/ml Creatine Kinase MB Ratio 0.9 0-3.0 Prothromb Time International Ratio 0.9 0.9-1.1 Prothrombin Time 10.0 9.0-12.0 SECONDS Total Creatine Kinase 280 H 26-192 U/L Troponin I < 0.015 0.023 0.023 0-0.045 ng/ml EKG performed on arrival revealed sinus rhythm with no significant ST changes. Repeat EKG performed this morning 06/14/17 at 10:36 AM revealed sinus rhythm at 71 bpm with occasional PACs, otherwise normal. Telemetry reveals stable sinus rhythm and mild sinus tachycardia. Assessment & Plan Impression: 71-year-old female 1. Presented to the emergency room because of change in mental status, with findings of hypertensive urgency. Mental status has improved. Blood pressure is still elevated but is trending toward improvement. She has an abnormal MRI as noted above. 2. History of left apical ballooning syndrome, no culprit coronary stenosis and 2009, with follow-up resolution of her apical wall motion abnormality normal LVEF documented 2011. 3. Underlying uncinate history of hypertension, well-controlled Discussion/recommendations: Reviewed my note from when I had recent seen the patient on 05/02/17 and her blood pressure was normal 124/70. I reviewed her blood pressure trend of her readings performed within the [employer] system for the last several years, and her blood pressures have been within the ideal range. Although mental status change could be associated with hypertensive urgency, at this point, I suspect that perhaps the hypertension brought on by her underlying distress instead. Agree with transitioning her to her home blood pressure medications, watching her blood pressure trend for now. Agree with neurologic workup as planned by Dr. Hu. I have requested a transthoracic echocardiogram. Cardiac enzymes are negative. Will continue to follow the patient with you.
--- NOTE | 2017-06-14 14:52 | DIAGNOSTIC IMAGING REPORT ---
FLUOROSCOPICALLY GUIDED LUMBAR PUNCTURE CLINICAL HISTORY: htn urgency, abnormality on mri, ?infectious etiology PROCEDURE: The procedure, risks and benefits were discussed with the patient including the risk of spinal headache, bleeding and infection. The patient agreed to the procedure and informed written consent was obtained. The procedure was performed by Dr. Guerra following a timeout. The right L4-L5 interlaminar space was targeted. Skin overlying the space was prepped and draped in sterile fashion and local anesthesia was achieved with 1% lidocaine. Under intermittent fluoroscopic guidance, a 3 1/2 inch, 22-gauge spinal needle was directed into the thecal sac with immediate return of clear cerebrospinal fluid. A total of 8 cc of CSF was collected in 4 vials and sent to the laboratory as ordered. The needle was removed. The patient tolerated the procedure well and no immediate complications were evident. IMPRESSION: Fluoroscopically guided lumbar puncture with collection of 8 cc of clear cerebrospinal fluid. Electronically signed by: Willy Guerra M.D. 06/14/2017 2:51 PM Dictated Date/Time: 06/14/2017 2:49 PM
--- NOTE | 2017-06-14 15:32 | Medical Student: [facility] ---
Med Student Progress Note Date of Service Jun 14, 2017. Subjective Pt evaluation today including: conversation w/ patient, conversation w/ family , physical exam, chart review, lab review, review of studies, review of inpatient medication list Pain: none PO Intake: normal Voiding: no voiding problems This is 71 year-old female with hx of HTN, TIA(? 25ya), takotsubo cardiomyopathy (2009), hypercholesterolemia, Anxiety/Depression, and IBS presented yesterday with SOB, nausea/vomiting, and confusion. Upon ED arrival, patient BP is 220/110. She was put on Nicardipine drip which brings her BP down. Of note, she was also tachycardia, hypokalemia and hyponatremia on admission. Today, patient was comfortably sitting in bedside chair. Her was in the room and mentioned that she was a little bit confused this morning when she woke up. Patient also mentioned that before this episode happened yesterday, she felt a tingling sensation started in her legs and go up throughout her body. She states that she feels tired but denies other symptoms. Denies vision changes, RYAN, N/V, chest pain, SOB, tingling, numbness, or weakness in arms or legs. Upon further talking, said that patient has been having memory issues for the past few months and is currently worked up for that as outpatient. Review of Systems Constitutional: + fatigue Eyes: No worsening of vision Respiratory: No shortness of breath, No dyspnea on exertion Cardiac: No chest pain Abdomen: No pain, No nausea, No vomiting Female : No dysuria Neurologic: No weakness, No numbness/tingling Objective Vital Signs Date Time Temp Pulse Resp B/P (MAP) Pulse Ox O2 Delivery O2 Flow Rate FiO2 06/14/17 11:46 37.6 81 18 145/81 (102) 94 Room Air 06/14/17 08:00 Nasal Cannula 2.0 06/14/17 07:15 36.8 108 20 176/100 (125) 97 Room Air 06/14/17 04:00 37.3 84 16 169/79 (109) 96 Room Air 06/14/17 04:00 Nasal Cannula 2.0 06/14/17 00:01 Nasal Cannula 2.0 06/13/17 23:30 36.8 84 16 165/80 (108) 100 Nasal Cannula 2.0 06/13/17 21:30 36.6 81 18 169/88 99 Nasal Cannula 2.0 06/13/17 20:53 92 16 147/80 96 06/13/17 20:31 98 16 169/84 96 Nasal Cannula 2.0 06/13/17 20:27 95 16 164/89 97 Nasal Cannula 2.0 06/13/17 20:10 98 16 143/72 97 Nasal Cannula 2.0 06/13/17 20:05 141/72 06/13/17 20:00 107 16 140/72 96 Nasal Cannula 2.0 06/13/17 19:55 107 16 134/85 97 Nasal Cannula 2.0 06/13/17 19:50 107 142/64 06/13/17 19:45 118 148/75 06/13/17 19:40 118 16 159/69 97 Nasal Cannula 2.0 06/13/17 19:25 108 16 169/86 96 Nasal Cannula 2.0 06/13/17 19:15 106 16 169/86 96 Nasal Cannula 2.0 06/13/17 19:05 109 16 176/88 97 Nasal Cannula 2.0 06/13/17 18:50 108 18 195/103 97 06/13/17 18:45 99 187/92 06/13/17 18:40 103 186/93 97 Nasal Cannula 2.0 06/13/17 18:35 100 186/92 06/13/17 18:30 187/98 06/13/17 18:29 97 97 Nasal Cannula 2.0 06/13/17 18:26 189/86 06/13/17 18:24 105 96 Nasal Cannula 2.0 06/13/17 18:20 85 Room Air 06/13/17 18:20 96 Nasal Cannula 2.0 06/13/17 18:19 96 94 06/13/17 18:16 171/89 06/13/17 18:14 97 92 06/13/17 18:10 182/106 06/13/17 18:09 83 96 06/13/17 18:04 190/126 06/13/17 18:03 73 96 06/13/17 18:01 201/93 06/13/17 17:58 71 98 06/13/17 17:53 73 99 06/13/17 17:48 69 99 06/13/17 17:45 199/92 06/13/17 17:34 216/92 06/13/17 17:30 36.6 71 25 216/92 99 Room Air 06/13/17 17:30 99 Room Air Physical Exam General Appearance: + mild distress, + pertinent finding (Patient is shaky/ slight tremor ) Eyes: bilateral eyes normal inspection, bilateral eyes PERRL, bilateral eyes EOMI ENT: hearing grossly normal Neck: supple Respiratory/Chest: lungs clear, normal breath sounds, no respiratory distress, no accessory muscle use Cardiovascular: regular rate, rhythm, no edema, no murmur Abdomen: normal bowel sounds, non tender, soft Extremities: normal range of motion, normal inspection, no pedal edema, no calf tenderness Neurologic/Psychiatric: hedis specialist II-XII nml as tested, no motor/sensory deficits, alert, normal mood/affect, oriented x 3, + pertinent finding (mild dysmetria ) Skin: no rash Laboratory Results Last 24 Hours Test 06/13/17 17:47 06/13/17 17:48 06/13/17 18:00 06/13/17 19:35 Bedside Glucose 125 mg/dl White Blood Count 4.72 K/uL Red Blood Count 3.90 M/uL Hemoglobin 12.4 g/dL Hematocrit 36.0 % Mean Corpuscular Volume 92.3 fL Mean Corpuscular Hemoglobin 31.8 pg Mean Corpuscular Hemoglobin Concent 34.4 g/dl Platelet Count 211 K/uL Mean Platelet Volume 8.4 fL Neutrophils (%) (Auto) 47.9 % Lymphocytes (%) (Auto) 38.6 % Monocytes (%) (Auto) 9.3 % Eosinophils (%) (Auto) 3.6 % Basophils (%) (Auto) 0.4 % Neutrophils # (Auto) 2.26 K/uL Lymphocytes # (Auto) 1.82 K/uL Monocytes # (Auto) 0.44 K/uL Eosinophils # (Auto) 0.17 K/uL Basophils # (Auto) 0.02 K/uL RDW Standard Deviation 40.4 fL RDW Coefficient of Variation 12.0 % Immature Granulocyte % (Auto) 0.2 % Immature Granulocyte # (Auto) 0.01 K/uL Prothrombin Time 10.0 SECONDS Prothromb Time International Ratio 0.9 Activated Partial Thromboplast Time 25.7 SECONDS Partial Thromboplastin Ratio 1.0 Sodium Level 134 mmol/L Potassium Level 3.4 mmol/L Chloride Level 100 mmol/L Carbon Dioxide Level 24 mmol/L Anion Gap 10.0 mmol/L 19.0 mmol/L Blood Urea Nitrogen 14 mg/dl Creatinine 1.10 mg/dl Est Creatinine Clear Calc Drug Dose 41.3 ml/min Estimated GFR () 59.3 Estimated GFR (Non- 51.2 BUN/Creatinine Ratio 13.1 Random Glucose 128 mg/dl Estimated Average Glucose 128 mg/dl Hemoglobin A1c 6.1 % Calcium Level 9.0 mg/dl Total Creatine Kinase 280 U/L Creatine Kinase MB 2.5 ng/ml Creatine Kinase MB Ratio 0.9 Troponin I < 0.015 ng/ml Chemistry Specimen Hemolysis Bedside Hemoglobin 12.6 g/dl Bedside Hematocrit 37 % Bedside Sodium 133 mEq/L Bedside Potassium 3.3 mEq/L Bedside Chloride 96 mEq/L Bedside Total CO2 22 mEq/l Bedside Blood Urea Nitrogen 15 mg/dl Bedside Creatinine 1.1 mg/dl Bedside Glucose (other) 129 mg/dl Bedside Ionized Calcium ([place]) 1.09 mmol/l Urine Color YELLOW Urine Appearance CLEAR Urine pH 8.0 Urine Specific [place] 1.011 Urine Protein NEG Urine Glucose (UA) NEG Urine Ketones NEG Urine Occult Blood TRACE Urine Nitrite NEG Urine Bilirubin NEG Urine Urobilinogen NEG Urine Leukocyte Esterase NEG Urine WBC (Auto) 1-5 /hpf Urine RBC (Auto) 0-4 /hpf Urine Hyaline Casts (Auto) 0 /lpf Urine Epithelial Cells (Auto) 10-20 /lpf Urine Bacteria (Auto) NEG Urine Opiates Screen NEG Urine Methadone, Qualitative NEG Urine Barbiturates NEG Urine Phencyclidine (PCP) Level NEG Ur Amphetamine/Methamphetamine NEG MDMA (Ecstasy) Screen NEG Urine Benzodiazepines Screen NEG Urine Cocaine Metabolite NEG Urine Marijuana (THC) NEG Test 06/13/17 22:10 06/14/17 06:23 Troponin I 0.023 ng/ml 0.023 ng/ml Thyroid Stimulating Hormone (TSH) 3.450 uIu/ml White Blood Count 5.60 K/uL Red Blood Count 3.98 M/uL Hemoglobin 12.7 g/dL Hematocrit 36.8 % Mean Corpuscular Volume 92.5 fL Mean Corpuscular Hemoglobin 31.9 pg Mean Corpuscular Hemoglobin Concent 34.5 g/dl Platelet Count 210 K/uL Mean Platelet Volume 8.3 fL Neutrophils (%) (Auto) 83.5 % Lymphocytes (%) (Auto) 12.9 % Monocytes (%) (Auto) 3.0 % Eosinophils (%) (Auto) 0.2 % Basophils (%) (Auto) 0.2 % Neutrophils # (Auto) 4.68 K/uL Lymphocytes # (Auto) 0.72 K/uL Monocytes # (Auto) 0.17 K/uL Eosinophils # (Auto) 0.01 K/uL Basophils # (Auto) 0.01 K/uL RDW Standard Deviation 40.5 fL RDW Coefficient of Variation 11.9 % Immature Granulocyte % (Auto) 0.2 % Immature Granulocyte # (Auto) 0.01 K/uL Sodium Level 130 mmol/L Potassium Level 4.0 mmol/L Chloride Level 95 mmol/L Carbon Dioxide Level 28 mmol/L Anion Gap 7.0 mmol/L Blood Urea Nitrogen 11 mg/dl Creatinine 0.89 mg/dl Est Creatinine Clear Calc Drug Dose 47.2 ml/min Estimated GFR () 76.6 Estimated GFR (Non- 66.1 BUN/Creatinine Ratio 11.8 Random Glucose 130 mg/dl Calcium Level 9.1 mg/dl Magnesium Level 2.5 mg/dl Triglycerides Level 82 mg/dl Cholesterol Level 291 mg/dl HDL Cholesterol 105 mg/dl LDL Cholesterol, Calculated 170 mg/dl VLDL Cholesterol, Calculated 16 mg/dl Cholesterol/HDL Ratio 2.8 Medications Current Inpatient Medications Medications (Trade) Dose Ordered Sig/Breanne Route Start Time Stop Time Status Last Admin Dose Admin Nicardipine HCl 25 mg/Sodium Chloride 250 ml @ 0 mls/hr Q0M PRN IV 06/13/17 19:15 07/13/17 19:14 06/13/17 19:50 75 MLS/HR Heparin Sodium (Porcine) (Heparin Sq 5000 Unit/0.5ml) 5,000 unit Q12 SQ 06/13/17 21:00 07/13/17 20:59 06/14/17 08:45 5,000 UNIT Acetaminophen (Tylenol Tab) 650 mg Q4H PRN PO 06/13/17 20:15 07/13/17 20:14 Al Hydrox/Mg Hydrox/Simethicone (Maalox Max Susp) 15 ml Q4H PRN PO 06/13/17 20:15 07/13/17 20:14 Magnesium Hydroxide (Milk Of Magnesia Susp) 30 ml Q12H PRN PO 06/13/17 20:15 07/13/17 20:14 Ondansetron HCl (Zofran Inj) 4 mg Q6H PRN IV 06/13/17 20:15 07/13/17 20:14 Morphine Sulfate (MoRPHine SULFATE INJ) 2 mg Q30M PRN IV 06/13/17 20:15 06/27/17 20:14 Polyethylene (Miralax Powder Packet) 17 gm DAILY PRN PO 06/13/17 20:15 07/13/17 20:14 Aspirin (Ecotrin Tab) 325 mg QAM PO 06/14/17 09:00 07/14/17 08:59 06/14/17 08:37 325 MG Clonazepam (Klonopin Tab) 0.5 mg TID PRN PO 06/13/17 20:15 07/13/17 20:14 Labetalol HCl (Normodyne Tab) 50 mg BID PO 06/13/17 21:00 07/13/17 20:59 06/14/17 08:38 50 MG Venlafaxine HCl (effeXOR EXTENDED REL CAP) 37.5 mg DAILY PO 06/14/17 09:00 07/14/17 08:59 06/14/17 08:39 37.5 MG Atorvastatin Calcium (Lipitor Tab) 40 mg QAM PO 06/14/17 09:00 07/14/17 08:59 06/14/17 08:39 40 MG Miscellaneous Information (Pharmacist Discharge Med Rec Consult) 1 ea UD PRN N/A 06/13/17 20:30 07/13/17 20:29 Losartan Potassium (coZAAR TAB) 100 mg QAM PO 06/14/17 09:00 07/14/17 08:59 06/14/17 08:37 100 MG Levalbuterol (Xopenex 1.25MG/ 3ML Neb) 1.25 mg Q4H PRN INH 06/14/17 01:45 07/14/17 01:44 Assessment and Plan Assessment and Plan: Radiology: - CXR - negative - Head CT - negative for bleeding - Brain MRI - left hippocampus abnormalities with restricted diffusion. Acute infarct is unlikely. Possible herpes encephalitis, limbic encephalitis, and seizure. - Brain MRA - multifocal stenosis within [place] as well as the distal vertebral artery - Neck MRA - no significant stenosis in common carotid, internal carotid, and vertebral arteries. This is 71 year-old female with hx of HTN, TIA(? 27ya), takotsubo cardiomyopathy (2009), hypercholesterolemia, Anxiety/Depression, and IBS presented yesterday with SOB, nausea/vomiting, and confusion, and elevated BP ( hypertensive urgency) Hypertension Ddx: resistant hypertension, new stroke, renal artery stenosis, noncompliance with medications, hyperthyroidism, pheo, [employer], hyperaldosteronism. This patient is currently on 3 different BP medications, one of them is a diuretics ( Losartan, Labetalol, and Dyazide), this patient meets the criteria for resistant hypertension. She also has hx of questionable TIA in the past, hx of HTN and hyperlipidemia, which put her at risk of another stroke however head CT and brain MRI shows no acute infarction. With elevated BP and hypokalemia, hyperaldosteronism 2/2 renal artery stenosis is possible. Patient has hx of sleep apnea and used cpap at home and sleep apnea would be a risk factor for HTN but not to this extent? Spikes of htn and tachycardia with tremor could point to pheochromocytoma though unlikely. Melchor is unlikely since she does not have any other manifestations of Melchor besides HTN. - Control blood pressure with labetalol and losartan. - Cardiology consulted Confusion Brain MRI shows left hippocampus abnormalities with restricted diffusion. Ddx: HTN, viral infection. HTN could cause hypoperfusion to these area. Viral infection is on the ddx list however she does not have any constitutional sx such as fever, chills, ill-appearance that suggest infection. - Control blood pressure with labetalol and losartan - Neurology consulted - recommend lumbar puncture and EEG to evaluate inflammatory (ie. herpes) vs non-inflammatory. - recommend switch to Plavix 75mg instead of aspirin 81mg as outpatient. Anxiety/Depression - Continue home meds DVT prophylaxis - heparin
--- NOTE | 2017-06-14 15:34 | EEG Procedure Note ---
EEG Procedure Note Date of Service Jun 14, 2017. Start / End Times Start Time: 10:59 AM End Time: 11:19 AM Referring Physician Omid Hu History This is a 71-year-old female who presents with left temporal MRI changes and concern for possible encephalopathy and encephalitis. EEG for further evaluation of possible seizure or encephalitis etiology. Home Medication List Scheduled Aspirin (Aspirin Ec), 81 MG PO DAILY Calcium Carbonate-Cholecalcife (Calcium 600 + D 600-200 mg-Unit), 1 TAB PO BID Immune Globulin (Human) Subcut (Hizentra), 1 DOSE SQ WK Labetalol HCl (Labetalol HCl), 50 MG PO BID Levalbuterol (Levalbuterol HCl), 1.25 MG NEB Q4H Losartan Potassium (Cozaar), 100 MG PO DAILY Multivitamins/Minerals (Mvi With Minerals), 1 TAB PO DAILY Potassium Chloride Microencaps (Potassium Chloride Er), 20 MEQ PO DAILY Triamterene/Hctz (Dyazide 37.5MG/25MG), 1 CAP PO DAILY Venlafaxine Hcl (Venlafaxine Extended Rel), 37.5 MG PO DAILY Scheduled PRN Albuterol Hfa (Ventolin Hfa), 2 PUFFS INH Q4H PRN for Cough/SOB/Wheezing Clonazepam (Clonazepam), 0.5 MG PO TID PRN for Anxiety Epinephrine (Epipen), 0.3 MG IM UD PRN for ALLERGIC REACTION Zolpidem Tartrate (Zolpidem Tartrate), 10 MG PO HS PRN for Sleep Inpatient Medication List Current Inpatient Medications Medications (Trade) Dose Ordered Sig/Breanne Route Start Time Stop Time Status Last Admin Dose Admin Nicardipine HCl 25 mg/Sodium Chloride 250 ml @ 0 mls/hr Q0M PRN IV 06/13/17 19:15 07/13/17 19:14 06/13/17 19:50 75 MLS/HR Heparin Sodium (Porcine) (Heparin Sq 5000 Unit/0.5ml) 5,000 unit Q12 SQ 06/13/17 21:00 07/13/17 20:59 06/14/17 08:45 5,000 UNIT Acetaminophen (Tylenol Tab) 650 mg Q4H PRN PO 06/13/17 20:15 07/13/17 20:14 Al Hydrox/Mg Hydrox/Simethicone (Maalox Max Susp) 15 ml Q4H PRN PO 06/13/17 20:15 07/13/17 20:14 Magnesium Hydroxide (Milk Of Magnesia Susp) 30 ml Q12H PRN PO 06/13/17 20:15 07/13/17 20:14 Ondansetron HCl (Zofran Inj) 4 mg Q6H PRN IV 06/13/17 20:15 07/13/17 20:14 Morphine Sulfate (MoRPHine SULFATE INJ) 2 mg Q30M PRN IV 06/13/17 20:15 06/27/17 20:14 Polyethylene (Miralax Powder Packet) 17 gm DAILY PRN PO 06/13/17 20:15 07/13/17 20:14 Aspirin (Ecotrin Tab) 325 mg QAM PO 06/14/17 09:00 07/14/17 08:59 06/14/17 08:37 325 MG Clonazepam (Klonopin Tab) 0.5 mg TID PRN PO 06/13/17 20:15 07/13/17 20:14 Labetalol HCl (Normodyne Tab) 50 mg BID PO 06/13/17 21:00 07/13/17 20:59 06/14/17 08:38 50 MG Venlafaxine HCl (effeXOR EXTENDED REL CAP) 37.5 mg DAILY PO 06/14/17 09:00 07/14/17 08:59 06/14/17 08:39 37.5 MG Atorvastatin Calcium (Lipitor Tab) 40 mg QAM PO 06/14/17 09:00 07/14/17 08:59 06/14/17 08:39 40 MG Miscellaneous Information (Pharmacist Discharge Med Rec Consult) 1 ea UD PRN N/A 06/13/17 20:30 07/13/17 20:29 Losartan Potassium (coZAAR TAB) 100 mg QAM PO 06/14/17 09:00 07/14/17 08:59 06/14/17 08:37 100 MG Levalbuterol (Xopenex 1.25MG/ 3ML Neb) 1.25 mg Q4H PRN INH 06/14/17 01:45 07/14/17 01:44 Description This is a 21 electrode EEG with a single channel dedicated to limited EKG. The electrodes were placed in accordance with the International 10-20 system. At the start of the recording the patient was in an awake state. Background was well organized and composed of mixed alpha and beta frequencies. There was a symmetric well-formed moderate amplitude 8-9Hz posterior dominant rhythm that was reactive to eye opening and closure. Hyperventilation was not done. Intermittent photic stimulation at various frequencies produced no abnormalities. There was no state changes or sleep transients. There was continuous theta slowing over the left temporal region. Occasionally there is noted to be moderate amplitude sharply contoured waves in the left frontotemporal region, at times with what appeared to be a phase reversal at F7. Interpretation This is an abnormal routine EEG secondary to continuous left temporal slowing with occasional sharply contoured waves in the left frontotemporal region There was no electrographic seizures or periodic epileptiform discharges. Clinical Correlation This EEG indicates a structural or functional cerebral dysfunction in the left anterior temporal region which is consistent with MRI changes. While sharply contoured waves in the left frontotemporal region maximal at F7 were not clearly epileptiform discharges, appearance was concerning for something that potentially could develop into an epileptiform discharge.
--- NOTE | 2017-06-14 15:43 | Cardiology Progress Note ---
Cardiology Progress Note Date of Service Jun 14, 2017. Cardiology Progress Note Last Vital Signs Documentation Date Time Temp Pulse Resp B/P (MAP) Pulse Ox O2 Delivery O2 Flow Rate FiO2 06/14/17 15:17 37.7 71 18 172/77 (108) 98 Room Air 06/14/17 08:00 I followed up on the patient from my office. In the computer, her vital signs revealed that her blood pressure improved on 1 reading, but is been elevated again on the last 2 readings with most recent vital signs as noted above. I spoke to her nurse by telephone. Plan for starting hydralazine 10 milligrams IV q.6 hours p.r.n. systolic blood pressure greater than 160 millimeters Hg. another consideration, is that the patient may have blood pressure elevation due to alcohol withdrawal, as it did appear that she has a history of significant alcohol intake perhaps about a bottle of wine per day per the history obtained from Dr Hu's conversation with a family member. Recommend , medicating her appropriately for alcohol withdrawal, perhaps by changing her benzodiazepine dose to a routine dose as compared to a p.r.n.. I am going to have pt's nurse bring this up with the primary team. because I do not think this is a good medication for me to adjust from off site. Charity Gabriel, DO
[2017-06-14] MEDS ORDERED: HydrALAZINE HCL 20 MG/ML VIAL IV. PRN (15:45)
[2017-06-14] MEDS ORDERED: HydrALAZINE HCL 20 MG/ML VIAL IV. ONE (16:00)
[2017-06-14 16:20] LABS: CSF TOTAL PROTEIN 35.7 mg/dl (15.0-45.0)
[2017-06-14 16:22] LABS: CSF APPEARANCE CLEAR; CSF COLOR COLORLESS; CSF XANTHOCHROMIC NO XANTHOCHROMIA
[2017-06-14 16:26] LABS: CSF LACTATE** 2.1 mmol/L (0.6-2.2)
[2017-06-14] MEDS ORDERED: LORAZEPAM 2 MG/ML 1 ML VIAL ONE (16:28)
[2017-06-14] MEDS ORDERED: LORAZEPAM 2 MG/ML 1 ML VIAL IV STA (16:29)
[2017-06-14 16:57] LABS: CSF CHEMISTRY TUBE # 1
[2017-06-14] MEDS ORDERED: MULTI-VITAMIN INFUSION INJ 10 ML, THIAMINE HCL INJ 100 MG, FoLIC ACID INJ 1 MG in SODIU... IV ONE (17:59)
[2017-06-14] MEDS ORDERED: D5W AND 1/2NSS 1,000 ML IV SCH (17:59)
[2017-06-14] MEDS ORDERED: CHLORDIAZEPOXIDE 25 MG CAP PO SCH (18:00)
[2017-06-14] MEDS: CARVEDILOL 12.5 MG TAB PO SCH (19:55)
[2017-06-14] MEDS: CHLORDIAZEPOXIDE 50MG 1ST DOSE PO SCH ×2 (20:02→23:50)
[2017-06-15] VITALS (12 sets, daily range): BP systolic 132–174; BP diastolic 64–129; PULSE 69–85; TEMP 36.6–37.4; O2SAT 93–100
[2017-06-15] MEDS: CHLORDIAZEPOXIDE 50MG 1ST DOSE PO SCH ×2 (05:14→11:58)
[2017-06-15 06:06] LABS: BASO % 0.1 %; BASO ABS # 0.01 K/uL (0-0.2); COMPLETE YES; EOS % 0.5 %; HEMATOCRIT 31.4 % (37-47); IG% 0.3 %; LYMPH ABS # 1.52 K/uL (1.2-3.4); MEAN CELL VOLUME 91.3 fL (80-100); MEAN CORPUSCULAR HEMOGLOBIN 32.3 pg (25-34); MEAN CORPUSCULAR HGB CONC 35.4 g/dl (32-36); MEAN PLATELET VOLUME 8.4 fL (7.4-10.4); MONO % 7.5 %; NEUT % 71.6 %; PLATELET COUNT 188 K/uL (130-400); RED BLOOD COUNT 3.44 M/uL (4.2-5.4); WHITE BLOOD COUNT 7.59 K/uL (4.8-10.8)
[2017-06-15 06:42] LABS: BUN/CREATININE RATIO 16.1 (10-20); CALCIUM 7.8 mg/dl (8.5-10.1); CREATININE 0.77 mg/dl (0.60-1.20); POTASSIUM 3.6 mmol/L (3.5-5.1)
[2017-06-15] MEDS: CLOPIDOGREL BISULFATE 75 MG TAB PO SCH (07:59)
[2017-06-15] MEDS: VENLAFAXINE HCL XR 37.5 MG CAPXR PO SCH (07:59)
[2017-06-15] MEDS: ATORVASTATIN 40 MG TAB PO SCH (08:00)
[2017-06-15] MEDS: LOSARTAN POTASSIUM 50 MG TAB PO SCH (08:00)
--- NOTE | 2017-06-15 08:01 | ECHOCARDIOGRAM REPORT ---
*NOTICE TO RECEIVING REPUBLICAN AGENCY This information is strictly Confidential and protected under [place] law. [place] law prohibits you from making any further disclosure of this information unless further disclosure is expressly permitted by the written consent of the person to whom it pertains or is authorized by law. A general authorization for the release of medical or other information is not sufficient for this purpose. Hospital accepts no responsibility if the information is made available to any other person, INCLUDING THE PATIENT. Interpretation Summary * Name: STEPHANIE BELLO Study Date: 06/14/2017 01:16 PM BP: 176/100 mmHg * Patient Location: .2E\S\E203\S\1 HR: 79 * : 1945 (M/d/yyyy) Gender: Female Height: 62 in * Age: 71 yrs Ethnicity: [place] Weight: 128 lb * Ordering Physician: Juwan Gabriel * Referring Physician: Self, Referred * Performed By: Irasema Mejía RCS * * Reason For Study: Hypertensive Urgency * BSA: 1.6 m2 * The study was technically difficult. * The study was technically limited. * -- Conclusions -- * There is normal left ventricular wall thickness. * Left ventricular systolic function is normal. * The LV Ejection Fraction = 55-60%. * determine the number of cusps. * The Doppler evaluation was adequate. * The aortic valve is mildly sclerotic. * Mild aortic regurgitation. * Aortic stenosis is absent. * The aortic valve was not visualized sufficiently to * Grade I diastolic dysfunction, (abnormal relaxation pattern). * Doppler findings do not suggest pulmonary hypertension. * There is a trace loculated anterior pericardial effusion. * Tamonade is absent. Procedure Details * The study was technically difficult. * There were technical limitations due to patient'sbody habitus * A contrast injection of Definity was performed to improve assessment of LV function. * Contrast was injected into an intravenous site in the right arm. * One vial of Definity ultrasound contrast was diluted in normal saline to a total volume of 10 ml. A total of '6' ml of solution was administered during imaging. * Lot # [id number] of Definity utilized for procedure. * Expiration date . * The attending nurse who injected the contrast agent was ED, RN. * A complete two-dimensional transthoracic echocardiogram was performed (2D, M-mode, Doppler and color flow Doppler). Left Ventricle * The left ventricle is normal in size. * There is normal left ventricular wall thickness. * Ejection Fraction = 55-60%. * Left ventricular systolic function is normal. * The left ventricular wall motion is normal. * No regional wall motion abnormalities noted. Right Ventricle * The right ventricle is normal size. * The right ventricular systolic function is normal as assessed by tricuspid annular plane systolic excursion (TAPSE) (normal >1.5 cm). Atria * The left atrial size is normal. * Right atrial size is normal. * There is no evidence of atrial septal defect, but resolution does not allow assessment for a patent foramen ovale. Mitral Valve * The mitral valve is normal. * There is no mitral valve stenosis. * Significant mitral regurgitation is absent. Tricuspid Valve * The tricuspid valve is normal. * There is no tricuspid stenosis. * Significant tricuspid regurgitation is absent. * Doppler findings do not suggest pulmonary hypertension. Aortic Valve * The aortic valve was not visualized sufficiently to determine the number of cusps. The Doppler evaluation was adequate. The aortic valve is mildly sclerotic * Aortic stenosis is absent. * Mild aortic regurgitation. Pulmonic Valve * The pulmonary valve is not well seen, but the Doppler examination is normal without significant regurgitation or stenosis. Great Vessels * The aortic root and proximal ascending aorta are normal sized. Pericardium/Pleural * There is a trace loculated anterior pericardial effusion. Tamonade is absent. Great Vessels * Normal inferior vena cava diameter and respiratory variation suggests normal central venous pressure. Left Ventricular Diastolic Function * Grade I diastolic dysfunction, (abnormal relaxation pattern). MMode 2D Measurements and Calculations IVSd 1.1 cm LVIDd 3.5 cm LVIDs 2.7 cm LVPWd 1.1 cm IVS/LVPW 1.0 FS 23.8 % EDV(Teich) 52.6 ml ESV(Teich) 27.1 ml EF(Teich) 48.4 % EDV(cubed) 44.7 ml ESV(cubed) 19.8 ml EF(cubed) 55.7 % LV mass(C)d 121.0 grams LV mass(C)dI 76.5 grams/m\S\2 SV(Teich) 25.4 ml SI(Teich) 16.1 ml/m\S\2 SV(cubed) 24.9 ml SI(cubed) 15.7 ml/m\S\2 Ao root diam 2.7 cm Ao root area 5.5 cm\S\2 LVOT diam 2.0 cm LVOT area 3.1 cm\S\2 Doppler Measurements and Calculations MV E max tiarra 67.9 cm/sec MV A max tiarra 93.1 cm/sec MV E/A 0.73 MV dec time 0.17 sec Ao V2 max 145.3 cm/sec Ao max PG 8.5 mmHg Ao max PG (full) 4.3 mmHg SRI(V,A) 2.2 cm\S\2 SRI(V,D) 2.2 cm\S\2 LV V1 max PG 4.2 mmHg LV V1 max 102.2 cm/sec TR max tiarra 190.6 cm/sec
[2017-06-15] MEDS: HEPARIN SOD 5000 UNIT/0.5 ML CARP SQ SCH ×2 (08:05→21:49)
[2017-06-15] MEDS: CARVEDILOL 12.5 MG TAB PO SCH ×2 (08:55→22:50)
--- NOTE | 2017-06-15 09:57 | Family Medicine Progress Note ---
Progress Note Date of Service Jun 15, 2017. Subjective Pt evaluation today including: conversation w/ patient awake and comfortable in bed intermittently confused No complaints this morning Daughter reports that she has been confused on and off Needed 1:1 for supervision- not combative or agitated Constitutional: No fever, No chills Eyes: No worsening of vision ENT: No hearing loss Respiratory: No cough, No sputum, No wheezing, No shortness of breath, No dyspnea on exertion Cardiovascular: No chest pain Abdomen: No pain, No nausea, No vomiting, No diarrhea Female : No dysuria, No urinary frequency Objective Physical Exam General Appearance: no apparent distress Eyes: PERRL, EOMI ENT: hearing grossly normal Neck: no adenopathy Respiratory/Chest: lungs clear, normal breath sounds, no respiratory distress, no accessory muscle use Cardiovascular: regular rate, rhythm, no edema, no JVD, no murmur Abdomen: normal bowel sounds, non tender, soft Neurologic/Psychiatric: bunch maker hand II-XII nml as tested, no motor/sensory deficits, alert, + disoriented, + pertinent finding (UE mild tremor) Assessment and Plan 71 y/o F with h/o of HTN, CVA, HPL, severe asthma, anx/depression who presented with n/v + confusion, found to be in htn urgency. Initially treated with Nicardipine that seemed to reduce her pressures adequately. She was then transitioned to home meds which did not completely control her pressures. She was again transitioned to carvedilol, hydralazine IV prn and maintained on cozaar (home med). She underwent an LP yesterday after which she started showing worsening AMS/ confusion and hallucinations. She was started on Alcohol withdrawal protocol based on her AWSS and CIWA scores. This continued to wax and wane into the night. Her pressures were also labile. This morning, she was appropriately responsive but intermittently confused. Much less hallucinations this morning. Rounds with Neurology brought up concerns about her MRI; questioning limbic encephalitis. There is concern about epileptiform activity on EEG and while she is not presenting as a typical seizures, we discussed starting anti-convulsant. Also discussed need to further evaluate her constellation of symptoms as LP was negative for infectious etiology. Altered mental status, waxing/waning ? HTN encephalopathy vs. CVA (less likely, atypical?) vs. infectious etiology (ruled out) vs. Hyponatremia Reviewed Imaging: Brain MRI: Abnormality in left hippocampus atypical for ischemia, ? herpes encephalitis vs limbic encephalitis vs. seizure Head MRA- stenosis of [place] of [place]- distal right Vertebral artery Neck MRA- normal carotids Head CT- Negative LP under fluoroscopy- negative csf anaylsis EEG concerning for epileptiform activity - started on depakote 500 mg Appreciate neurology reccs on Plavix 75 mg. atorvastatin 40 Hyponatremia, worsening Noted this morning to be 125 from 130 yesterday FLuids changed to NSS Repeat BMP scheduled q6h Unsure if this is related to the IV fluids (received banana bag as well which is NSS)- drastic drop in Na Also unsure of what % this is contributing to her AMS given that on admission her Na was 134 and she had similar symptoms HTN urgency (possibly related to alcohol) Improved with Nicardipine initially Currently on Hydralazine, Cozaar, Carvedilol Cardiology consulted, appreciate reccs echo- EF of 55-60%, mild AR, grade 1 Diastolic dysf. no pulm HTN, trace effusion cardiology sent Blood cultures ?emboli form endocarditis? Alcohol withdrawal Ciwa score of 7 this morning Banana bag, Librium and IV fluids (changed to NSS) 1:1 Did not order ativan prn (could worsening ams with too much benzo) Discharge planning Tachycardia likely 2/2 to anxiety/withdrawal Improved during stay Glucose intolerance A1c of 6.1 Depending on how long she has been prediabetic and her willingness to correct with lifestyle changes May discuss starting pharmacologic glycemic control Sleep apnea: Encourage consistent use of CPAP machine at home Also maybe contributing to HTN and risk of CVA Ordered for use in hospital Memory loss (pre-existing) Neuropsych testing scheduled next week family history of Alzheimer/dementia Anxiety /depression Continue venlafaxine Asthma, stable DVT proph Heparin sq Code: Full @ ~1600, Had further discussion with neurology and there was more concern for limbic encephalitis/ paraneoplastic syndromes/ autoimmune conditions given the changes in sodium and confusion. Ordered repeat MRI with contrast (not done earlier) as well as Autoimmune screens, Inflammatory markers. Per Dr. Hu, ordered antibodies for Voltage gated potassium channel antibody, anti- hu , anti-nmda. (send outs) @~ 1800- noted sodium to be 121. Had discussion with Dr. Smith about changing fluids to hypertonic saline, however given drastic change, consulted Nephro. I spoke over the phone and she recommended 2% saline (no central line currently to do 3%), stopping all IV fluids. Ordered urine/serum osm Thiamine and folate IV, d/cd banana bag/nss repeat sodium in 2 hours Night resident informed of her condition ICU also notified of her situation and potential for transfer during the night. Goal to replace slowly to avoid CPM @ ~2130 noted potassium to be 2.8, over phone, notified pharmacy, nurse and asked tele to review monitor (no findings reported except one episode of tachycardia). Night resident notified and asked to assess patient and place orders for potassium IV stat History Resident Physician Supervision Note: I was present with Dr. Fairchild during the history and exam. I discussed the case with the resident and agree with the findings and plan as documented in the note. Any exceptions or clarifications are listed here. Pt seen and examined at bedside. Feels more comfortable and less anxious at present. Oriented to self, somewhat to place (difficulty w/ hospital) and time ( year, month, day of week, not date). states that she has episodic issues with confusion at night time, usually right before bed which resolve w/ going to sleep. Never anything this substantial, though she has been 'somewhat out of it' in the past. General Appearance: no apparent distress Eye Exam: bilateral eye PERRL, bilateral eye EOMI Respiratory: chest non-tender, lungs clear, normal breath sounds, no respiratory distress Cardiovascular: normal peripheral pulses, regular rate, rhythm, no edema, no murmur Gastrointestinal: normal bowel sounds, non tender, soft, no organomegaly Assessment/Plan 71 y/o female h/o HTN p/w hypertensive emergency Delirium - potentially 2/2 etOH withdrawal v. hyponatremia v. limbic lesion - continue CIWA protocol, frequent reorientation, 1:1 when family is not present Abnormal MRI - neurology aware, input appreciated - LP and EEG today for evaluation of atypical limbic findings - start depakote. Continue statin therapy , plavix HTN Urgency - ?related to episodic anxiety v. etOH withdrawal - improved w/ CIWA , contninue hydralazine 5mg IV PRN. BCx per cardiology recommendations today to evaluate for underlying infectious cause of episodes Tachycardia - improved Asthma - at baseline - continue chronic medications Anxiety/depression - cont Venlafaxine, Clonazepam
--- NOTE | 2017-06-15 10:31 | Cardiology Follow-Up ---
Subjective General Date of Service: Jun 15, 2017. Chief Complaint: follow-up hypertension, confusion Pt evaluation today including: conversation w/ patient, conversation w/ family , physical exam History of Present Illness The patient is a 71 year old female seen in cardiology follow-up. Her stepdaughter, Radha, accompanies her at the bedside. The patient is more confused this morning when she was when I saw her yesterday. She is unable to tell me that she is in the hospital. She defines her location as being "[facility] ". She denies any pain. Denies shortness of breath. Her heart rate is stable on telemetry with sinus rhythm in the 70 beat per minute range. Blood pressures have trended toward improvement, although most recent reading was elevated at 159/129, with a reading before that at 4 AM of 164/81. She had one dose of IV hydralazine at 1555 yesterday. She had since been placed on a tapering dose of Librium for alcohol withdrawal prophylaxis. Allergies Coded Allergies: Levofloxacin (Verified Allergy, Severe, ANAPHYLAXIS, 01/05/17) Quinolones (Verified Allergy, Severe, RASH, 01/05/17) Avelox and levaquin Molds and Smuts (Verified Allergy, Mild, SEASONAL ALLERGY SYMPTOMS, 01/05/17 ) Amoxicillin (Verified Allergy, Unknown, Nausea, 06/13/17) Clavulanic Acid (Verified Allergy, Unknown, Nausea, 06/13/17) Moxifloxacin (Verified Allergy, Unknown, Nausea, 06/13/17) Doxycycline (Verified Adverse Reaction, Intermediate, nausea, 01/05/17) Erythromycin (Verified Adverse Reaction, Mild, N/V, 01/05/17) Penicillins (Verified Adverse Reaction, Mild, AUGMENTIN-GI UPSET, 01/05/17) GI UPSET Social History Smoking Status: Former Smoker Hx Tobacco Use In Past Year?: No (quit 40 yrs ) Hx Alcohol Use - Type And Amou: Yes (2 glasses wine/day) Hx Substance Use - Type And Am: No Problem List Medical Problems: (1) Hypertensive emergency Status: Acute (2) Metabolic encephalopathy Status: Acute Physical Exam Vital Signs Last Vital Signs Documentation Date Time Temp Pulse Resp B/P (MAP) Pulse Ox O2 Delivery O2 Flow Rate FiO2 06/15/17 08:09 37.4 73 16 159/129 (139) 93 Room Air 06/14/17 08:00 Physical Exam Constitutional: Level of Distress: acutely ill Head: normocephalic Neck: supple Lungs: Auscultation: no wheezing, no rales/crackles, no rhonchi Cardiovascular: Heart Auscultation: RRR, no murmurs, no rubs Abdomen: Inspection & Palpation: soft, non-distended Extremities: no edema Neurologic: Gait & Station: pertinent finding (confused, not oriented, follows commands , moves all 4 extremities) Assessment and Plan Assessment and Plan Impression: 71-year-old female 1. Change in mental status, encephalopathy - Presented to the emergency room because of change in mental status, with findings of hypertensive urgency. -At this time, I speculate that elevated blood pressure is a secondary issue perhaps related to her distress from her mental status issues and perhaps I'll call trauma rather than the hypertension being the primary driving diagnosis 2. Abnormal MRI and EEG, neurology following Plan: Echocardiogram performed yesterday revealed normal left ventricular wall motion without regional wall motion abnormalities and with normal biventricular function. Images of the aortic valve were suboptimal, and the number of cusps cannot be determined, but at least mild aortic valve sclerosis without stenosis is present. Mild aortic regurgitation is noted, which is stable compared to 2012. Given her history of past aortic regurgitation, recommend blood cultures for completeness with thoughts that this could be an atypical presentation for endocarditis. The patient is afebrile however. And her imaging of the brain is not a classic pattern for embolic infarctions. Is noted the patient has had concerns of worsening mentation over the last 6+ months. Seems to be in acute decompensation of a slowly progressive problem. Labetalol as been transitioned to carvedilol for blood pressure. Continue losartan. Continue atorvastatin. I think antiplatelet therapy is reasonable at this time, appears aspirin has been transitioned to clopidogrel. Continue subcutaneous heparin for DVT prophylaxis. Dr. Weaver will be rounding for out service this weekend and I am back on service on Sunday, please call with questions or concerns. Jo, DO Laboratory Results Last 24 Hours Test 06/14/17 14:30 06/15/17 05:33 CSF Color COLORLESS CSF Appearance CLEAR CSF WBC 0 /uL CSF RBC 31 /uL CSF Polynuclear WBCs % CSF Xanthrochromic NO XANTHOCHROMIA CSF Cell Count Tube # 3 CSF Chemistry Tube # 1 CSF Glucose 77 mg/dl CSF Lactic Acid 2.1 mmol/L CSF Total Protein 35.7 mg/dl White Blood Count 7.59 K/uL Red Blood Count 3.44 M/uL Hemoglobin 11.1 g/dL Hematocrit 31.4 % Mean Corpuscular Volume 91.3 fL Mean Corpuscular Hemoglobin 32.3 pg Mean Corpuscular Hemoglobin Concent 35.4 g/dl Platelet Count 188 K/uL Mean Platelet Volume 8.4 fL Neutrophils (%) (Auto) 71.6 % Lymphocytes (%) (Auto) 20.0 % Monocytes (%) (Auto) 7.5 % Eosinophils (%) (Auto) 0.5 % Basophils (%) (Auto) 0.1 % Neutrophils # (Auto) 5.43 K/uL Lymphocytes # (Auto) 1.52 K/uL Monocytes # (Auto) 0.57 K/uL Eosinophils # (Auto) 0.04 K/uL Basophils # (Auto) 0.01 K/uL RDW Standard Deviation 39.2 fL RDW Coefficient of Variation 11.7 % Immature Granulocyte % (Auto) 0.3 % Immature Granulocyte # (Auto) 0.02 K/uL Sodium Level 125 mmol/L Potassium Level 3.6 mmol/L Chloride Level 92 mmol/L Carbon Dioxide Level 25 mmol/L Anion Gap 8.0 mmol/L Blood Urea Nitrogen 12 mg/dl Creatinine 0.77 mg/dl Est Creatinine Clear Calc Drug Dose 54.6 ml/min Estimated GFR () 91.3 Estimated GFR (Non- 78.8 BUN/Creatinine Ratio 16.1 Random Glucose 111 mg/dl Calcium Level 7.8 mg/dl
[2017-06-15] MEDS ORDERED: SODIUM CHLORIDE 0.9% 1000ML 1,000 ML IV SCH (11:00)
--- NOTE | 2017-06-15 11:01 | Neurology Progress Notes ---
Neurology Progress Note Date of Service Jun 15, 2017. Subjective The patient has no complaint of headache this morning. She is not certain that she is confused and was not lightheaded or having hallucinations this morning. She has no pain or weakness in the arms or legs and is not having incontinence of urine. The patient is angry that she is in the hospital and realizes she she is going through withdrawal". She is sleepy this morning. Nursing reports no seizure activity. According to the family, who was present again today, the patient has had waxing and waning confusion starting yesterday to this morning. She was quite lucid last night but was more confused this morning. EEG shows left temporal spike waves intermittently. There was no periodic lateralizing epileptiform discharges however. LP showed 0 white cells, 31 red cells, and a protein which was normal at 35.7. Gram stain was negative and there is no growth so far. According to Dr. Gabriel, echocardiogram showed some aortic regurgitation. This morning, sodium was low at 125. Calcium was 11.8 and CBC showed mild anemia at 11.1 Objective Date Time Temp Pulse Resp B/P (MAP) Pulse Ox O2 Delivery O2 Flow Rate FiO2 06/15/17 08:09 37.4 73 16 159/129 (139) 93 Room Air 06/15/17 08:00 Room Air 06/15/17 04:00 36.6 77 18 164/81 (108) 97 Room Air 06/15/17 04:00 Room Air 06/15/17 00:00 Room Air 06/14/17 23:23 36.7 86 18 144/78 (100) 95 Room Air 06/14/17 21:05 126/66 (86) 06/14/17 20:00 Room Air 06/14/17 19:26 37.0 98 18 181/96 (124) 95 Room Air 06/14/17 16:08 22 126/106 (113) 06/14/17 16:00 Room Air 06/14/17 15:17 37.7 71 18 172/77 (108) 98 Room Air 06/14/17 14:59 37.4 77 16 188/86 (120) 97 Room Air 06/14/17 11:46 37.6 81 18 145/81 (102) 94 Room Air Last 24 Hours Test 06/14/17 14:30 06/15/17 05:33 CSF Color COLORLESS CSF Appearance CLEAR CSF WBC 0 /uL CSF RBC 31 /uL CSF Polynuclear WBCs % CSF Xanthrochromic NO XANTHOCHROMIA CSF Cell Count Tube # 3 CSF Chemistry Tube # 1 CSF Glucose 77 mg/dl CSF Lactic Acid 2.1 mmol/L CSF Total Protein 35.7 mg/dl White Blood Count 7.59 K/uL Red Blood Count 3.44 M/uL Hemoglobin 11.1 g/dL Hematocrit 31.4 % Mean Corpuscular Volume 91.3 fL Mean Corpuscular Hemoglobin 32.3 pg Mean Corpuscular Hemoglobin Concent 35.4 g/dl Platelet Count 188 K/uL Mean Platelet Volume 8.4 fL Neutrophils (%) (Auto) 71.6 % Lymphocytes (%) (Auto) 20.0 % Monocytes (%) (Auto) 7.5 % Eosinophils (%) (Auto) 0.5 % Basophils (%) (Auto) 0.1 % Neutrophils # (Auto) 5.43 K/uL Lymphocytes # (Auto) 1.52 K/uL Monocytes # (Auto) 0.57 K/uL Eosinophils # (Auto) 0.04 K/uL Basophils # (Auto) 0.01 K/uL RDW Standard Deviation 39.2 fL RDW Coefficient of Variation 11.7 % Immature Granulocyte % (Auto) 0.3 % Immature Granulocyte # (Auto) 0.02 K/uL Sodium Level 125 mmol/L Potassium Level 3.6 mmol/L Chloride Level 92 mmol/L Carbon Dioxide Level 25 mmol/L Anion Gap 8.0 mmol/L Blood Urea Nitrogen 12 mg/dl Creatinine 0.77 mg/dl Est Creatinine Clear Calc Drug Dose 54.6 ml/min Estimated GFR () 91.3 Estimated GFR (Non- 78.8 BUN/Creatinine Ratio 16.1 Random Glucose 111 mg/dl Calcium Level 7.8 mg/dl Exam: Patient is sleeping but easily arousable. She sits up in bed and is awake and alert. She is pleasant and follows one-step commands well. She is oriented to name and her family members names. She did not know the month, the day, or the year. She had no specific aphasia or dysarthria. Extraocular eye muscles are intact without nystagmus. There is no facial droop. Tongue is midline. With outstretched arms, there is no drift. There is no resting, postural, or action tremors. Strength is symmetrical being 5/5 in all 4 limbs. Sitting up in bed she is not getting lightheaded. Current Inpatient Medications Medications (Trade) Dose Ordered Sig/Breanne Route Start Time Stop Time Status Last Admin Dose Admin Nicardipine HCl 25 mg/Sodium Chloride 250 ml @ 0 mls/hr Q0M PRN IV 06/13/17 19:15 07/13/17 19:14 06/13/17 19:50 75 MLS/HR Heparin Sodium (Porcine) (Heparin Sq 5000 Unit/0.5ml) 5,000 unit Q12 SQ 06/13/17 21:00 07/13/17 20:59 06/15/17 08:05 5,000 UNIT Acetaminophen (Tylenol Tab) 650 mg Q4H PRN PO 06/13/17 20:15 07/13/17 20:14 Al Hydrox/Mg Hydrox/Simethicone (Maalox Max Susp) 15 ml Q4H PRN PO 06/13/17 20:15 07/13/17 20:14 Magnesium Hydroxide (Milk Of Magnesia Susp) 30 ml Q12H PRN PO 06/13/17 20:15 07/13/17 20:14 Ondansetron HCl (Zofran Inj) 4 mg Q6H PRN IV 06/13/17 20:15 07/13/17 20:14 Morphine Sulfate (MoRPHine SULFATE INJ) 2 mg Q30M PRN IV 06/13/17 20:15 06/27/17 20:14 Polyethylene (Miralax Powder Packet) 17 gm DAILY PRN PO 06/13/17 20:15 07/13/17 20:14 Clonazepam (Klonopin Tab) 0.5 mg TID PRN PO 06/13/17 20:15 07/13/17 20:14 Venlafaxine HCl (effeXOR EXTENDED REL CAP) 37.5 mg DAILY PO 06/14/17 09:00 07/14/17 08:59 06/15/17 07:59 37.5 MG Atorvastatin Calcium (Lipitor Tab) 40 mg QAM PO 06/14/17 09:00 07/14/17 08:59 06/15/17 08:00 40 MG Losartan Potassium (coZAAR TAB) 100 mg QAM PO 06/14/17 09:00 07/14/17 08:59 06/15/17 08:00 100 MG Levalbuterol (Xopenex 1.25MG/ 3ML Neb) 1.25 mg Q4H PRN INH 06/14/17 01:45 07/14/17 01:44 Hydralazine HCl (HydrALAZINE INJ) 10 mg Q6 PRN IV. 06/14/17 15:45 07/14/17 15:44 Carvedilol (Coreg Tab) 12.5 mg BID PO 06/14/17 21:00 07/14/17 20:59 06/15/17 08:55 12.5 MG Dextrose/Sodium Chloride 1,000 ml @ 66 mls/hr [id number] IV 06/14/17 17:59 07/14/17 17:58 06/14/17 20:03 66 MLS/HR Chlordiazepoxide (Librium Cap) 50 mg Q6H PO 06/14/17 18:00 06/15/17 12:01 06/15/17 05:14 50 MG Chlordiazepoxide (Librium Cap) 50 mg Q8H PO 06/15/17 22:00 06/16/17 14:01 Chlordiazepoxide (Librium Cap) 25 mg Q8H PO 06/16/17 22:00 06/17/17 14:01 Chlordiazepoxide (Librium Cap) 10 mg Q12H PO 06/17/17 21:00 06/18/17 09:01 Clopidogrel Bisulfate (plAVix TAB) 75 mg QAM PO 06/15/17 09:00 07/15/17 08:59 06/15/17 07:59 75 MG Impression 1. Acute encephalopathy June 13. This was markedly improved the first day after admission, she's had a fluctuating mental status/confusional state since. At times she is much more lucid than others. Originally, I suspected her severe, sudden hypertension is responsible for this. The pressure has improved with treatment although there was a relatively high reading this morning. There are other contributing factors: however. She has hyponatremia which is getting somewhat worse at 125. Her calcium is low at 7.8. She is likely going through some alcohol withdrawal which adds to confusion. I'm not sure that she had B vitamin deficiency. This is being replaced. I still cannot entirely exclude a medial temporal stroke on the left however this was deemed to be less likely according to the radiologist. 2. 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 LP was not consistent with infection and EEG, although it showed spike activity did not show PLED's consistent with herpes encephalitis. Other inflammatory origin is possible. 3. Hypertension Typically this is controlled easily as an outpatient but she is had a marked increase on admission. Since admission the blood pressure has been labile/fluctuating. Alcohol withdrawal could be responsible for this. 4. Old small vessel ischemic changes of a moderate nature seen on MRI. These would be secondary to her chronic history of hypertension and other risk factors for small vessel ischemic disease. This has been despite 81mg ASA daily In addition she has multifocal areas of stenosis scattered cerebrally as noted by MR angiography of the head 5. Mild elevated glucose, hemoglobin A1c with no history of diabetes 6. Hyponatremia (125) of uncertain etiology Hyponatremia can increase likelihood of seizures, imitate stroke, and cause encephalopathy. 7. Essential tremor, mild 8. Cognitive dysfunction over the last 8 years, thought to be progressive by family members I suspect she has a dementia which is probably multifactorial including vascular and excessive alcohol usage. With an underlying dementia, any metabolic or other factor leading to confusion will make her cognitive problems much worse. 9. History of sleep apnea. She is not using C Pap on a regular basis. Sleep apnea puts her at risk for increased cerebral and cardiac issues. Plan 1. Initiate Depakote ER 500 mg twice a day today, and then decrease to 500 mg ER once daily, in order to suppress spike activity and see if this changes altered mental status. In a few days we could check a level and adjust accordingly. 2. Treat patient with standard alcohol withdrawal protocol, using B vitamins, and benzodiazepines judiciously (we will try not to use excessive benzodiazepines as this will contribute to altered mental status) 3. Control blood pressure as you're doing 4. The patient has neuropsychological testing scheduled for next week at [facility]. She should keep this appointment if possible 5. Discontinue all alcohol usage as an outpatient. 6. Use C Pap machine regularly for sleep apnea 7. Consider Plavix 75 mg a day instead of 81 mg aspirin and blue of the focal stenoses seen on MR angiography as well as her small vessel ischemic change. 8. When able, initiate exercise routine 9. Replace sodium slowly, to avoid central pontine myelolysis. 10. Replace calcium I spoke with Dr. Smith regarding this case including differential diagnosis and treatment options. Overall, I spent 40 minutes with this case including discussion with family and the patient at bedside, and discussion with her attending physician.
[2017-06-15] MEDS: ONDANSETRON INJ 2 MG/ML 2 ML VIAL IV PRN (11:58)
[2017-06-15] MEDS: DIVALPROEX 500 MG EXTENDED RELEASE TAB PO SCH (12:00)
[2017-06-15] MEDS ORDERED: MULTI-VITAMIN INFUSION INJ 10 ML, THIAMINE HCL INJ 100 MG, FoLIC ACID INJ 1 MG in SODIU... IV SCH (15:00)
[2017-06-15 15:19] LABS: BUN/CREATININE RATIO 13.8 (10-20); CALCIUM 7.7 mg/dl (8.5-10.1); CREATININE 0.66 mg/dl (0.60-1.20); POTASSIUM 3.1 mmol/L (3.5-5.1)
[2017-06-15] MEDS ORDERED: THIAMINE HCL 100 MG/ML 2 ML VIAL IM SCH (18:30)
[2017-06-15] MEDS ORDERED: SODI CHLOR IV SCH (19:00)
[2017-06-15] MEDS ORDERED: STERILE WATER IV SCH (19:00)
[2017-06-15] MEDS: THIAMINE HCL INJ 100 MG in SYRINGE 9 ML IV SCH (19:59)
[2017-06-15] MEDS: FoLIC ACID INJ 1 MG in SYRINGE 9.8 ML IV SCH (20:00)
[2017-06-15 21:13] LABS: BUN/CREATININE RATIO 11.4 (10-20); CREATININE 0.7 mg/dl (0.60-1.20); POTASSIUM 2.8 mmol/L (3.5-5.1)
[2017-06-15] MEDS: CHLORDIAZEPOXIDE 50MG Q8H DOSE PO SCH (22:00)
[2017-06-15] MEDS ORDERED: POTASSIUM CHLORIDE 10 MEQ TABCR PO STA ×2 (22:17→23:40)
[2017-06-15] MEDS: POTASSIUM CHLR 10 MEQ / WTR 10 MEQ in PREMIXED WATER 100 ML IV SCH ×2 (22:49→23:51)
[2017-06-15] MEDS ORDERED: TOLVAPTAN TAB 15 MG TAB PO ONE (23:00)
[2017-06-15 23:27] LABS: CREATININE 0.6 mg/dl (0.60-1.20); POTASSIUM 2.6 mmol/L (3.5-5.1)
[2017-06-15] MEDS ORDERED: SODIUM CHLORIDE 3% INJ 100 ML in EMPTY BAG 0 ML IV STA (23:46)
[2017-06-16] VITALS (12 sets, daily range): BP systolic 123–149; BP diastolic 57–83; PULSE 74–88; TEMP 36.5–37.4; O2SAT 94–100
[2017-06-16] MEDS: POTASSIUM CHLR 10 MEQ / WTR 10 MEQ in PREMIXED WATER 100 ML IV SCH ×2 (00:59→02:27)
[2017-06-16 02:28] LABS: BUN/CREATININE RATIO 11.3 (10-20); CALCIUM 7.6 mg/dl (8.5-10.1); CREATININE 0.69 mg/dl (0.60-1.20); POTASSIUM 4.4 mmol/L (3.5-5.1)
[2017-06-16 05:47] LABS: BASO % 0.4 %; BASO ABS # 0.02 K/uL (0-0.2); COMPLETE YES; EOS % 1.1 %; HEMATOCRIT 31.8 % (37-47); IG% 0.2 %; LYMPH % 24.2 %; LYMPH ABS # 1.37 K/uL (1.2-3.4); MEAN CELL VOLUME 90.3 fL (80-100); MEAN CORPUSCULAR HEMOGLOBIN 31.3 pg (25-34); MEAN CORPUSCULAR HGB CONC 34.6 g/dl (32-36); MEAN PLATELET VOLUME 8.5 fL (7.4-10.4); MONO % 10.1 %; PLATELET COUNT 182 K/uL (130-400); RED BLOOD COUNT 3.52 M/uL (4.2-5.4); WHITE BLOOD COUNT 5.67 K/uL (4.8-10.8)
[2017-06-16 06:13] LABS: BUN/CREATININE RATIO 11.6 (10-20); C-REACTIVE PROTEIN 0.62 mg/dl (0-0.29); CALCIUM 8.5 mg/dl (8.5-10.1); CREATININE 0.7 mg/dl (0.60-1.20); POTASSIUM 4.7 mmol/L (3.5-5.1)
[2017-06-16 06:14] LABS: MAGNESIUM 2.2 mg/dl (1.8-2.4); RHEUMATOID FACTOR < 10.0 U/mL (0-15)
[2017-06-16] MEDS: CHLORDIAZEPOXIDE 50MG Q8H DOSE PO SCH ×2 (06:27→14:00)
--- NOTE | 2017-06-16 07:02 | Family Medicine Progress Note ---
Progress Note Date of Service Jun 16, 2017. Subjective Pt evaluation today including: conversation w/ patient, physical exam, chart review, lab review, review of studies, conversation w/ architectural sales consultant, review of inpatient medication list Patient slept through most of the day, likely secondary to fatigue from lack of sleep for several days prior. Awoke patient in evening. Patient alert and responding appropriately to questions. Complaining of fatigue. Denies any pain symptoms- no headache, CP, abdominal pain. Denies SOB, nausea, weakness. Is complaining of diarrhea which has been ongoing for several weeks. ROS unremarkable except as noted above. Objective Vital Signs Date Time Temp Pulse Resp B/P (MAP) Pulse Ox O2 Delivery O2 Flow Rate FiO2 06/16/17 04:00 96 Nasal Cannula 2.0 06/16/17 03:24 36.7 82 18 146/79 (101) 96 Nasal Cannula 2.0 06/16/17 00:00 100 Nasal Cannula 2.0 06/15/17 23:03 37.2 85 18 142/64 (90) 100 Nasal Cannula 2.0 06/15/17 21:38 75 157/82 (107) 06/15/17 20:00 95 Room Air 06/15/17 18:44 37.4 77 20 132/72 (92) 95 Room Air 06/15/17 16:00 147/76 (99) 06/15/17 16:00 Room Air 06/15/17 15:50 75 146/76 (99) 06/15/17 15:20 157/117 (130) 06/15/17 15:17 36.7 71 18 174/83 (113) 98 Room Air 06/15/17 12:18 37.4 69 18 167/80 (109) 94 Room Air 06/15/17 12:00 Room Air 06/15/17 11:42 37.4 71 16 146/85 (105) 94 Room Air 06/15/17 08:09 37.4 73 16 159/129 (139) 93 Room Air 06/15/17 08:00 Room Air Physical Exam General Appearance: WD/WN, no apparent distress Eyes: normal inspection, sclerae normal ENT: hearing grossly normal, pharynx normal Neck: supple, no adenopathy Respiratory/Chest: lungs clear, no respiratory distress, no accessory muscle use, + rales Cardiovascular: regular rate, rhythm, no murmur Abdomen: normal bowel sounds, non tender, soft Extremities: normal inspection, no pedal edema, no calf tenderness Neurologic/Psychiatric: grievance and appeals coordinator II-XII nml as tested, no motor/sensory deficits, alert, normal mood/affect, oriented x 3 Skin: normal color, warm/dry, no rash Laboratory Results Results Past 24 Hours Test 06/16/17 05:24 06/16/17 08:18 06/16/17 12:02 06/16/17 15:46 Range/Units White Blood Count 5.67 4.8-10.8 K/uL Red Blood Count 3.52 4.2-5.4 M/uL Hemoglobin 11.0 12.0-16.0 g/dL Hematocrit 31.8 37-47 % Mean Corpuscular Volume 90.3 80-100 fL Mean Corpuscular Hemoglobin 31.3 25-34 pg Mean Corpuscular Hemoglobin Concent 34.6 32-36 g/dl Platelet Count 182 130-400 K/uL Mean Platelet Volume 8.5 7.4-10.4 fL Neutrophils (%) (Auto) 64.0 % Lymphocytes (%) (Auto) 24.2 % Monocytes (%) (Auto) 10.1 % Eosinophils (%) (Auto) 1.1 % Basophils (%) (Auto) 0.4 % Neutrophils # (Auto) 3.64 1.4-6.5 K/uL Lymphocytes # (Auto) 1.37 1.2-3.4 K/uL Monocytes # (Auto) 0.57 0.11-0.59 K/uL Eosinophils # (Auto) 0.06 0-0.5 K/uL Basophils # (Auto) 0.02 0-0.2 K/uL RDW Standard Deviation 38.1 36.4-46.3 fL RDW Coefficient of Variation 11.6 11.5-14.5 % Immature Granulocyte % (Auto) 0.2 % Immature Granulocyte # (Auto) 0.01 0.00-0.02 K/uL Erythrocyte Sedimentation Rate 14 0-21 mm/hr Sodium Level 133 134 135 135 136-145 mmol/L Potassium Level 4.7 4.6 4.3 3.5-5.1 mmol/L Chloride Level 104 105 107 98-107 mmol/L Carbon Dioxide Level 24 25 23 21-32 mmol/L Anion Gap 5.0 4.0 5.0 3-11 mmol/L Blood Urea Nitrogen 8 8 10 7-18 mg/dl Creatinine 0.70 0.82 0.81 0.60-1.20 mg/dl Est Creatinine Clear Calc Drug Dose 60.0 55.5 56.2 ml/min Estimated GFR () 102.5 84.6 85.9 Estimated GFR (Non- 88.4 73.0 74.1 BUN/Creatinine Ratio 11.6 9.8 11.7 10-20 Random Glucose 92 91 94 70-99 mg/dl Osmolality 278 280-300 mOsm/kg Calcium Level 8.5 8.8 9.0 8.5-10.1 mg/dl Magnesium Level 2.2 1.8-2.4 mg/dl C-Reactive Protein 0.62 0-0.29 mg/dl Rheumatoid Factor < 10.0 0-15 U/mL Test 06/16/17 19:44 06/16/17 20:28 06/16/17 21:50 06/16/17 23:34 Range/Units Sodium Level 136 134 136-145 mmol/L Microbiology Results 06/16/17 C.difficile Toxin B Gene (PCR) - Final, Complete No C. difficile toxin B gene detected 06/16/17 WBC Smear, Received Pending 06/16/17 Shiga Toxin Test, Received Pending 06/16/17 Stool Culture, Received Pending Assessment and Plan 71 y/o F with h/o of HTN, CVA, HPL, severe asthma, anx/depression who presented with n/v + confusion, found to be in HTN urgency. Initially treated with nicardipine that seemed to reduce her pressures adequately. She was then transitioned to home meds which did not completely control her pressures. She was again transitioned to carvedilol, hydralazine IV PRN and maintained on Cozaar (home med). She underwent an LP 06/14/17 after which she started showing worsening AMS/ confusion and hallucinations. She was started on Alcohol withdrawal protocol based on her AWSS and CIWA scores. This continued to wax and wane into the night. Her pressures were also labile. This has shown improvement in the subsequent days with gradually improving responsiveness and fewer episodes of intermittent confusion/hallucinations. 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 While she is not presenting as a typical seizures, anti-convulsant was commenced and further serum and CSF evaluation initiated given her constellation of symptoms and LP negative for infectious etiology. Altered mental status, waxing/waning Differentials:? HTN encephalopathy vs. CVA (less likely, atypical?) vs. infectious etiology (ruled out) vs. hyponatremia vs limbic encephalitis vs. paraneoplastic syndromes vs. autoimmune conditions Reviewed Imaging: Brain MRI: Abnormality in left hippocampus atypical for ischemia, ? herpes encephalitis vs limbic encephalitis vs. seizure Head MRA- stenosis of [place] of [place]- distal right Vertebral artery Neck MRA- normal carotids Head CT- Negative LP under fluoroscopy- negative csf anaylsis EEG concerning for epileptiform activity - started on Depakote 500 mg Repeat MRI with contrast report unchanged from previous Voltage gated potassium channel antibody, anti- hu , anti-nmda (serum and CSF) sent out and pending Appreciate neurology recs Continue Plavix 75 mg and atorvastatin 40mg Hyponatremia, worsening Initially noted to drop to 125 from 130. Unsure of what % this is contributing to her AMS given that on admission her Na was 134 and she had similar symptoms Fluids changed from 1/2 NS to NSS, with boluses of hypertonic saline. Repeat BMP scheduled q6h Nephrology consulted, recs appreciated Rapid overcorrection of Na+ with subsequent changed to D5. Continue to trend BMP Chronic diarrhea - stool sent for c.diff toxin, leukocytes, culture, O&P, Giardia. Will treat as appropriate. HTN urgency (possibly related to alcohol) Improved with Nicardipine initially Currently on Hydralazine, Cozaar, Carvedilol Cardiology consulted, appreciate recs Echo- EF of 55-60%, mild AR, grade 1 Diastolic dysf. no pulm HTN, trace effusion Blood cultures pending - ?emboli form endocarditis? Alcohol withdrawal Ciwa score of 4 this morning Banana bag, Librium and IV fluids (NSS) Did not order Ativan PRN (could worsening ams with too much benzo) Discharge planning Tachycardia likely 2/2 to anxiety/withdrawal - resolved Improved during stay Glucose intolerance A1c of 6.1 Depending on how long she has been prediabetic and her willingness to correct with lifestyle changes May discuss starting pharmacologic glycemic control Sleep apnea: Encourage consistent use of CPAP machine at home Also maybe contributing to HTN and risk of CVA Ordered CPAP for use in hospital Memory loss (pre-existing) Neuropsych testing scheduled this Sunday Family history of Alzheimer/dementia Anxiety /depression Continue venlafaxine and clonazepam Asthma, stable DVT proph Heparin sq Code: Full Continued [facility] stay due to: multiple IV medications needed, other Resident Tracking Resident Involvement: Resident Care Provided Care Provided: Adult Hospital Medicine History Resident Physician Supervision Note: I was present with Dr. Sanchez during the history and exam. I discussed the case with the resident and agree with the findings and plan as documented in the note. Any exceptions or clarifications are listed here. Pt seen and examined at bedside. Somnolent but easily aroused and conversant. Oriented x 3. Minimal memory of the last few days. reports no pain, RYAN, vision changes, paresthesias, nausea. Diarrhea - chronic multiple episode liquid brown diarrhea which has been present x 1 month and persists without pain General Appearance: WD/WN, no apparent distress Respiratory: chest non-tender, lungs clear, normal breath sounds, no respiratory distress Cardiovascular: normal peripheral pulses, regular rate, rhythm, no edema, no murmur Gastrointestinal: normal bowel sounds, non tender, soft, no organomegaly Neurologic/Psychiatric: grievance and appeals coordinator II-XII nml as tested, alert, normal mood/affect, oriented x 3 Assessment/Plan 71 y/o female h/o HTN p/w hypertensive emergency Hyponatremia - nephrology consulted - adjusting Na w/ significant increase (w/ re-adjustment w/ D5 water today), trend q4h Delirium - potentially 2/2 etOH withdrawal v. hyponatremia v. limbic lesion - continue CIWA protocol, frequent reorientation, 1:1 when family is not present, improving Abnormal MRI - neurology aware, input appreciated - LP and EEG today for evaluation of atypical limbic findings - depakote. Continue statin therapy, plavix. Multiple paraneoplastic labs pending Chronic diarrhea -f ull stool studies and c. diff HTN Urgency - ?related to episodic anxiety v. etOH withdrawal - improved w/ CIWA , contninue hydralazine 5mg IV PRN. BCx pending Tachycardia - improved Asthma - at baseline - continue chronic medications Anxiety/depression - cont Venlafaxine, Clonazepam
[2017-06-16] MEDS: CLOPIDOGREL BISULFATE 75 MG TAB PO SCH (08:16)
[2017-06-16] MEDS: DIVALPROEX 500 MG EXTENDED RELEASE TAB PO SCH (08:16)
[2017-06-16] MEDS: VENLAFAXINE HCL XR 37.5 MG CAPXR PO SCH (08:16)
[2017-06-16] MEDS: ATORVASTATIN 40 MG TAB PO SCH (08:16)
[2017-06-16] MEDS: LOSARTAN POTASSIUM 50 MG TAB PO SCH (08:16)
[2017-06-16] MEDS: CARVEDILOL 12.5 MG TAB PO SCH ×2 (08:16→21:58)
[2017-06-16] MEDS: THIAMINE HCL INJ 100 MG in SYRINGE 9 ML IV SCH (08:19)
[2017-06-16] MEDS: FoLIC ACID INJ 1 MG in SYRINGE 9.8 ML IV SCH (08:20)
[2017-06-16] MEDS: HEPARIN SOD 5000 UNIT/0.5 ML CARP SQ SCH ×2 (08:24→21:59)
[2017-06-16 08:56] LABS: BUN/CREATININE RATIO 9.8 (10-20); CALCIUM 8.8 mg/dl (8.5-10.1); CREATININE 0.82 mg/dl (0.60-1.20); POTASSIUM 4.6 mmol/L (3.5-5.1)
[2017-06-16] MEDS ORDERED: DEXTROSE 5% 500ML 500 ML IV ONE (09:00)
--- NOTE | 2017-06-16 10:34 | Neurology Progress Notes ---
Neurology Progress Note Date of Service Jun 16, 2017. Subjective The patient is resting comfortably this morning catching up on sleep This morning earlier, according to the nursing staff, she was quite awake and alert following commands and fairly well oriented. The patient has had no seizure activity noted overnight or since hospitalized. Laboratory studies including sedimentation rate and rheumatoid factor were unremarkable. SVEN is pending. C-reactive protein was elevated and sodium remains low although approved. Patient is followed by Dr. Benavides who is carefully bringing the sodium up slowly. Also noted was a significantly low potassium. Patient's blood pressure is improved in general Objective Date Time Temp Pulse Resp B/P (MAP) Pulse Ox O2 Delivery O2 Flow Rate FiO2 06/16/17 08:04 100 Room Air 06/16/17 04:00 96 Nasal Cannula 2.0 06/16/17 03:24 36.7 82 18 146/79 (101) 96 Nasal Cannula 2.0 06/16/17 00:00 100 Nasal Cannula 2.0 06/15/17 23:03 37.2 85 18 142/64 (90) 100 Nasal Cannula 2.0 06/15/17 21:38 75 157/82 (107) 06/15/17 20:00 95 Room Air 06/15/17 18:44 37.4 77 20 132/72 (92) 95 Room Air 06/15/17 16:00 147/76 (99) 06/15/17 16:00 Room Air 06/15/17 15:50 75 146/76 (99) 06/15/17 15:20 157/117 (130) 06/15/17 15:17 36.7 71 18 174/83 (113) 98 Room Air 06/15/17 12:18 37.4 69 18 167/80 (109) 94 Room Air 06/15/17 12:00 Room Air 06/15/17 11:42 37.4 71 16 146/85 (105) 94 Room Air Last 24 Hours Test 06/15/17 14:39 06/15/17 17:48 06/15/17 19:30 06/15/17 20:35 Sodium Level 121 mmol/L 122 mmol/L 122 mmol/L Potassium Level 3.1 mmol/L 2.8 mmol/L Chloride Level 90 mmol/L 89 mmol/L Carbon Dioxide Level 23 mmol/L 26 mmol/L Anion Gap 8.0 mmol/L 7.0 mmol/L Blood Urea Nitrogen 9 mg/dl 8 mg/dl Creatinine 0.66 mg/dl 0.70 mg/dl Est Creatinine Clear Calc Drug Dose 63.6 ml/min 60.0 ml/min Estimated GFR () 104.5 102.5 Estimated GFR (Non- 90.1 88.4 BUN/Creatinine Ratio 13.8 11.4 Random Glucose 110 mg/dl 92 mg/dl Calcium Level 7.7 mg/dl 8.0 mg/dl Osmolality 248 mOsm/kg Urine Osmolality 333 mOms/kg Urine Random Sodium 86 mEq/L Test 06/15/17 22:56 06/16/17 00:50 06/16/17 01:59 06/16/17 05:24 Sodium Level 121 mmol/L 127 mmol/L 133 mmol/L Potassium Level 2.6 mmol/L 4.4 mmol/L 4.7 mmol/L Chloride Level 90 mmol/L 97 mmol/L 104 mmol/L Carbon Dioxide Level 25 mmol/L 25 mmol/L 24 mmol/L Anion Gap 6.0 mmol/L 5.0 mmol/L 5.0 mmol/L Blood Urea Nitrogen 8 mg/dl 8 mg/dl 8 mg/dl Creatinine 0.60 mg/dl 0.69 mg/dl 0.70 mg/dl Est Creatinine Clear Calc Drug Dose 70.0 ml/min 60.9 ml/min 60.0 ml/min Estimated GFR () 107.8 102.9 102.5 Estimated GFR (Non- 93.0 88.8 88.4 BUN/Creatinine Ratio 13.0 11.3 11.6 Random Glucose 100 mg/dl 100 mg/dl 92 mg/dl Calcium Level 8.0 mg/dl 7.6 mg/dl 8.5 mg/dl Total Bilirubin 0.4 mg/dl Aspartate Amino Transf (AST/SGOT) 28 U/L Alanine Aminotransferase (ALT/SGPT) 22 U/L Alkaline Phosphatase 50 U/L Total Protein 5.9 gm/dl Albumin 2.9 gm/dl Globulin 3.0 gm/dl Albumin/Globulin Ratio 1.0 Urine Osmolality 271 mOms/kg Urine Random Potassium 14.6 mEq/L White Blood Count 5.67 K/uL Red Blood Count 3.52 M/uL Hemoglobin 11.0 g/dL Hematocrit 31.8 % Mean Corpuscular Volume 90.3 fL Mean Corpuscular Hemoglobin 31.3 pg Mean Corpuscular Hemoglobin Concent 34.6 g/dl Platelet Count 182 K/uL Mean Platelet Volume 8.5 fL Neutrophils (%) (Auto) 64.0 % Lymphocytes (%) (Auto) 24.2 % Monocytes (%) (Auto) 10.1 % Eosinophils (%) (Auto) 1.1 % Basophils (%) (Auto) 0.4 % Neutrophils # (Auto) 3.64 K/uL Lymphocytes # (Auto) 1.37 K/uL Monocytes # (Auto) 0.57 K/uL Eosinophils # (Auto) 0.06 K/uL Basophils # (Auto) 0.02 K/uL RDW Standard Deviation 38.1 fL RDW Coefficient of Variation 11.6 % Immature Granulocyte % (Auto) 0.2 % Immature Granulocyte # (Auto) 0.01 K/uL Erythrocyte Sedimentation Rate 14 mm/hr Osmolality 278 mOsm/kg Magnesium Level 2.2 mg/dl C-Reactive Protein 0.62 mg/dl Rheumatoid Factor < 10.0 U/mL Test 06/16/17 08:18 Sodium Level 134 mmol/L Potassium Level 4.6 mmol/L Chloride Level 105 mmol/L Carbon Dioxide Level 25 mmol/L Anion Gap 4.0 mmol/L Blood Urea Nitrogen 8 mg/dl Creatinine 0.82 mg/dl Est Creatinine Clear Calc Drug Dose 55.5 ml/min Estimated GFR () 84.6 Estimated GFR (Non- 73.0 BUN/Creatinine Ratio 9.8 Random Glucose 91 mg/dl Calcium Level 8.8 mg/dl Exam: I have elected to let her sleep for now as she has not been sleeping well lately. Current Inpatient Medications Medications (Trade) Dose Ordered Sig/Breanne Route Start Time Stop Time Status Last Admin Dose Admin Heparin Sodium (Porcine) (Heparin Sq 5000 Unit/0.5ml) 5,000 unit Q12 SQ 06/13/17 21:00 07/13/17 20:59 06/16/17 08:24 5,000 UNIT Acetaminophen (Tylenol Tab) 650 mg Q4H PRN PO 06/13/17 20:15 07/13/17 20:14 Al Hydrox/Mg Hydrox/Simethicone (Maalox Max Susp) 15 ml Q4H PRN PO 06/13/17 20:15 07/13/17 20:14 Magnesium Hydroxide (Milk Of Magnesia Susp) 30 ml Q12H PRN PO 06/13/17 20:15 07/13/17 20:14 Ondansetron HCl (Zofran Inj) 4 mg Q6H PRN IV 06/13/17 20:15 07/13/17 20:14 06/15/17 11:58 4 MG Morphine Sulfate (MoRPHine SULFATE INJ) 2 mg Q30M PRN IV 06/13/17 20:15 06/27/17 20:14 Polyethylene (Miralax Powder Packet) 17 gm DAILY PRN PO 06/13/17 20:15 07/13/17 20:14 Clonazepam (Klonopin Tab) 0.5 mg TID PRN PO 06/13/17 20:15 07/13/17 20:14 06/15/17 15:15 0.5 MG Venlafaxine HCl (effeXOR EXTENDED REL CAP) 37.5 mg DAILY PO 06/14/17 09:00 07/14/17 08:59 06/16/17 08:16 37.5 MG Atorvastatin Calcium (Lipitor Tab) 40 mg QAM PO 06/14/17 09:00 07/14/17 08:59 06/16/17 08:16 40 MG Losartan Potassium (coZAAR TAB) 100 mg QAM PO 06/14/17 09:00 07/14/17 08:59 06/16/17 08:16 100 MG Levalbuterol (Xopenex 1.25MG/ 3ML Neb) 1.25 mg Q4H PRN INH 06/14/17 01:45 07/14/17 01:44 Hydralazine HCl (HydrALAZINE INJ) 10 mg Q6 PRN IV. 06/14/17 15:45 07/14/17 15:44 06/15/17 15:30 10 MG Carvedilol (Coreg Tab) 12.5 mg BID PO 06/14/17 21:00 07/14/17 20:59 06/16/17 08:16 12.5 MG Chlordiazepoxide (Librium Cap) 50 mg Q8H PO 06/15/17 22:00 06/16/17 14:01 06/16/17 06:27 50 MG Chlordiazepoxide (Librium Cap) 25 mg Q8H PO 06/16/17 22:00 06/17/17 14:01 Chlordiazepoxide (Librium Cap) 10 mg Q12H PO 06/17/17 21:00 06/18/17 09:01 Clopidogrel Bisulfate (plAVix TAB) 75 mg QAM PO 06/15/17 09:00 07/15/17 08:59 06/16/17 08:16 75 MG Divalproex Sodium (Depakote Extended Rel Tab) 500 mg DAILY PO 06/15/17 11:00 07/15/17 10:59 06/16/17 08:16 500 MG Folic Acid 1 mg/ Syringe 10 ml @ 5 mls/min DAILY IV 06/15/17 19:00 06/17/17 18:29 06/16/17 08:20 5 MLS/MIN Thiamine HCl 100 mg/Syringe 10 ml @ 2 mls/min DAILY IV 06/15/17 19:00 06/17/17 18:29 06/16/17 08:19 2 MLS/MIN Dextrose 500 ml @ 100 mls/hr Q5H ONCE IV 06/16/17 09:00 06/16/17 13:59 Impression 1. Acute encephalopathy June 13. This was markedly improved the first day after admission, she's had a fluctuating mental status/confusional state since. At times she is much more lucid than others. Originally, I suspected her severe, sudden hypertension is responsible for this. The pressure has improved with treatment although there was a relatively high reading this morning. There are other contributing factors: however. She has hyponatremia which is getting somewhat worse at 125. Her calcium is low at 7.8. She is likely going through some alcohol withdrawal which adds to confusion. I'm not sure that she had B vitamin deficiency. This is being replaced. I still cannot entirely exclude a medial temporal stroke (or relative ischemia) on the left, however this was deemed to be less likely according to the radiologist. 2. 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 Paraneoplastic antibodies, Anti-Hu, NMDA, And VGKC have been ordered. Some paraneoplastic syndromes give unilateral MRI findings, along with confusion , memory issues, seizures, and even hyponatremia. LP was not consistent with infection and EEG, although it showed spike activity did not show PLED's consistent with herpes encephalitis. Other inflammatory origin is possible. She has had no seizure activity clinically 3. Hypertension Typically this is controlled easily as an outpatient but she is had a marked increase on admission. Since admission the blood pressure has been labile/fluctuating. Alcohol withdrawal could be responsible for this. This is improved this morning 4. Old small vessel ischemic changes of a moderate nature seen on MRI. These would be secondary to her chronic history of hypertension and other risk factors for small vessel ischemic disease. This has been despite 81mg ASA daily In addition she has multifocal areas of stenosis scattered cerebrally as noted by MR angiography of the head 5. Mild elevated glucose, hemoglobin A1c with no history of diabetes 6. Hyponatremia (125) of uncertain etiology Hyponatremia can increase likelihood of seizures, imitate stroke, and cause encephalopathy. 7. Essential tremor, mild 8. Cognitive dysfunction over the last 8 years, thought to be progressive by family members I suspect she has a dementia which is probably multifactorial including vascular and excessive alcohol usage. With an underlying dementia, any metabolic or other factor leading to confusion will make her cognitive problems much worse. 9. History of sleep apnea. She is not using C Pap on a regular basis. Sleep apnea puts her at risk for increased cerebral and cardiac issues. Plan 1. Continue Depakote ER 500 once daily, in order to suppress spike activity and see if this changes altered mental status. In a few days we could check a level and adjust accordingly. 2. Treat patient with standard alcohol withdrawal protocol, using B vitamins, and benzodiazepines judiciously (we will try not to use excessive benzodiazepines as this will contribute to altered mental status) 3. Control blood pressure as you're doing 4. The patient has neuropsychological testing scheduled for next week at [facility]. unfortunately I am not sure she will be able to keep this. 5. Discontinue all alcohol usage as an outpatient. 6. Use C Pap machine regularly for sleep apnea 7. Continuer Plavix 75 mg a day instead of 81 mg aspirin, in lieu of the focal stenoses seen on MR angiography as well as her small vessel ischemic change. 8. When able, initiate exercise routine 9. Replace sodium slowly, to avoid central pontine myelolysis. Dr. Benavides is treating this 10. Repeat MRI of the brain with and without contrast. 11. Awaiting paraneoplastic antibody titers and other labs I spoke with Dr. Smith, as well as the family (at bedside) regarding this case including differential diagnosis and treatment options. Overall, I spent 30 minutes with this case including discussion with family and the patient at bedside, and discussion with her attending physician.
[2017-06-16] MEDS: ONDANSETRON INJ 2 MG/ML 2 ML VIAL IV PRN (11:18)
[2017-06-16] MEDS ORDERED: GADAVIST IV PRN (11:45)
--- NOTE | 2017-06-16 11:46 | DIAGNOSTIC IMAGING REPORT ---
MRI OF THE BRAIN WITHOUT AND WITH IV CONTRAST CLINICAL HISTORY: confusion PREVIOUS ABNORMAL MRI DATED 06/14/2017 COMPARISON STUDY: No previous studies for comparison. TECHNIQUE: MRI of the brain was performed from the vertex to the skull base utilizing various T1 and T2 weighted sequences. Following the IV administration of 6 mL of Gadavist contrast, additional enhanced images were obtained. FINDINGS: Sagittal T1, axial diffusion, proton density and T2 weighted axial, coronal FLAIR, and pre and post axial T1-weighted images were acquired. These were supplemented with post gadolinium coronal T1 weighted images. No intra or extra-axial mass lesions are visualized. There is a persistent nonspecific focus of restricted water diffusion involving the left medial temporal lobe/hippocampus. There is no evidence of ventricular dilatation. Proton density T2-weighted and FLAIR images reveal scattered foci of increased T2 signal within the white matter, likely on a small vessel basis. In addition there is stable increased FLAIR signal involving the left medial temporal lobe/hippocampus. There are no abnormal flow voids. There is no evidence of pathologic enhancement. IMPRESSION: 1. No significant change from the preceding examination 2. Persistent focus of increased FLAIR signal within the left hippocampus associated with restricted water diffusion. There is no pathologic enhancement. As was previously stated, the distribution is not typical for ischemia. Other possible etiologies include, a post-ictal state, limbic encephalitis, and herpes encephalitis. Electronically signed by: Olvin Gabriel M.D. 06/16/2017 11:44 AM Dictated Date/Time: 06/16/2017 11:34 AM
--- NOTE | 2017-06-16 12:20 | Nephrology Consultation ---
Nephrology Consultation Date & Providers Date of Consultation: Jun 16, 2017. Primary Care Provider: Earl Chan M.D. Referring Provider: Reason for Consultation Evaluation and management for acute hyponatremia and hypokalemia. History of Present Illness Sangeeta Is a 71-year-old female with past medical history significant for hypertension, recurrent hyponatremia, it able bowel syndrome, history of CVA almost 20 years ago admitted to the hospital with hypertensive emergency and change in mental status. Nephrologic consult was requested at to manage hyponatremia and hypokalemia. Electronic medical records including labs and imaging are reviewed in detail during patient's visit. Patient was seen with her daughter Lizbet and her son-in-law at bedside. She was sleeping at the time of my visit so history was taken mainly from EMR review and patient's family. Sangeeta was admitted to the hospital 3 days ago with hypertensive emergency and change in mental status. She was started on nicardipine drip with improvement in blood pressure over next 2 days and blood pressure now mostly staying systolic around 150s to 160s. Electrolytes were normal on admission. MRI was concerning for hypertensive encephalopathy, herpes encephalitis or limbic encephalopathy. Lumbar puncture was not suggestive of herpes encephalitis. Her mental status has been waxing and waning over last 2 days. According to her nurse and her daughter overnight she was restless however this morning she was awake, alert, had breakfast and drink and then she went in to sleep. On admission her serum sodium was 134 but following day her sodium dropped to 130s and then yesterday morning her sodium dropped to 124. Repeat lab in the afternoon showed serum sodium 122. Potassium was 3.1 which dropped further yesterday evening to 2.8. Considering her change in mental status and rapid drop in serum sodium, she was given 2 percent normal saline 200 mL. However repeat serum sodium a after that showed further drop in sodium to 121. Urine osmolality was above 300. She was given 1 dose of tolvaptan 15 milligram and 100 mL of 3 percent normal saline around midnight last night. Follow-up lab this morning showed serum sodium rapidly raya to 133. She has not been drinking since the morning. 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 She has history of chronic alcohol intake, on admission she was seemed to be on alcohol withdrawal and started on alcohol withdrawal protocol and she has been getting normal saline with that. Normal saline was stopped yesterday afternoon. Family also reports history of chronic diarrhea for last almost a month. She has history of chronic hyponatremia in the setting excessive alcohol intake. According to the family her prior mammogram was normal, previously had colonoscopy but rate cord not available. No family history GI malignancy. She is a nonsmoker. Allergies Coded Allergies: Levofloxacin (Verified Allergy, Severe, ANAPHYLAXIS, 01/05/17) Quinolones (Verified Allergy, Severe, RASH, 01/05/17) Avelox and levaquin Molds and Smuts (Verified Allergy, Mild, SEASONAL ALLERGY SYMPTOMS, 01/05/17 ) Amoxicillin (Verified Allergy, Unknown, Nausea, 06/13/17) Clavulanic Acid (Verified Allergy, Unknown, Nausea, 06/13/17) Moxifloxacin (Verified Allergy, Unknown, Nausea, 06/13/17) Doxycycline (Verified Adverse Reaction, Intermediate, nausea, 01/05/17) Erythromycin (Verified Adverse Reaction, Mild, N/V, 01/05/17) Penicillins (Verified Adverse Reaction, Mild, AUGMENTIN-GI UPSET, 01/05/17) GI UPSET Inpatient Medications Current Inpatient Medications Medications (Trade) Dose Ordered Sig/Breanne Route Start Time Stop Time Status Last Admin Dose Admin Heparin Sodium (Porcine) (Heparin Sq 5000 Unit/0.5ml) 5,000 unit Q12 SQ 06/13/17 21:00 07/13/17 20:59 06/16/17 08:24 5,000 UNIT Acetaminophen (Tylenol Tab) 650 mg Q4H PRN PO 06/13/17 20:15 07/13/17 20:14 Al Hydrox/Mg Hydrox/Simethicone (Maalox Max Susp) 15 ml Q4H PRN PO 06/13/17 20:15 07/13/17 20:14 Magnesium Hydroxide (Milk Of Magnesia Susp) 30 ml Q12H PRN PO 06/13/17 20:15 07/13/17 20:14 Ondansetron HCl (Zofran Inj) 4 mg Q6H PRN IV 06/13/17 20:15 07/13/17 20:14 06/15/17 11:58 4 MG Morphine Sulfate (MoRPHine SULFATE INJ) 2 mg Q30M PRN IV 06/13/17 20:15 06/27/17 20:14 Polyethylene (Miralax Powder Packet) 17 gm DAILY PRN PO 06/13/17 20:15 07/13/17 20:14 Clonazepam (Klonopin Tab) 0.5 mg TID PRN PO 06/13/17 20:15 07/13/17 20:14 06/15/17 15:15 0.5 MG Venlafaxine HCl (effeXOR EXTENDED REL CAP) 37.5 mg DAILY PO 06/14/17 09:00 07/14/17 08:59 06/16/17 08:16 37.5 MG Atorvastatin Calcium (Lipitor Tab) 40 mg QAM PO 06/14/17 09:00 07/14/17 08:59 06/16/17 08:16 40 MG Losartan Potassium (coZAAR TAB) 100 mg QAM PO 06/14/17 09:00 07/14/17 08:59 06/16/17 08:16 100 MG Levalbuterol (Xopenex 1.25MG/ 3ML Neb) 1.25 mg Q4H PRN INH 06/14/17 01:45 07/14/17 01:44 Hydralazine HCl (HydrALAZINE INJ) 10 mg Q6 PRN IV. 06/14/17 15:45 07/14/17 15:44 06/15/17 15:30 10 MG Carvedilol (Coreg Tab) 12.5 mg BID PO 06/14/17 21:00 07/14/17 20:59 06/16/17 08:16 12.5 MG Chlordiazepoxide (Librium Cap) 50 mg Q8H PO 06/15/17 22:00 06/16/17 14:01 06/16/17 06:27 50 MG Chlordiazepoxide (Librium Cap) 25 mg Q8H PO 06/16/17 22:00 06/17/17 14:01 Chlordiazepoxide (Librium Cap) 10 mg Q12H PO 06/17/17 21:00 06/18/17 09:01 Clopidogrel Bisulfate (plAVix TAB) 75 mg QAM PO 06/15/17 09:00 07/15/17 08:59 06/16/17 08:16 75 MG Divalproex Sodium (Depakote Extended Rel Tab) 500 mg DAILY PO 06/15/17 11:00 07/15/17 10:59 06/16/17 08:16 500 MG Folic Acid 1 mg/ Syringe 10 ml @ 5 mls/min DAILY IV 06/15/17 19:00 06/17/17 18:29 06/16/17 08:20 5 MLS/MIN Thiamine HCl 100 mg/Syringe 10 ml @ 2 mls/min DAILY IV 06/15/17 19:00 06/17/17 18:29 06/16/17 08:19 2 MLS/MIN Dextrose 500 ml @ 100 mls/hr Q5H IV 06/16/17 09:00 07/16/17 08:59 UNV Family History Hypertension Social History Smoking Status: Former Smoker Smokeless Tobacco Use: No Alcohol Use: heavy Drug Use: none Marital Status: Housing Status: lives with significant other Occupation: retired Review of Systems Detail review of systems was not possible due to patient factor. Physical Exam Date Time Temp Pulse Resp B/P (MAP) Pulse Ox O2 Delivery O2 Flow Rate FiO2 06/16/17 04:00 96 Nasal Cannula 2.0 06/16/17 03:24 36.7 82 18 146/79 (101) 96 Nasal Cannula 2.0 06/16/17 00:00 100 Nasal Cannula 2.0 06/15/17 23:03 37.2 85 18 142/64 (90) 100 Nasal Cannula 2.0 06/15/17 21:38 75 157/82 (107) 06/15/17 20:00 95 Room Air 06/15/17 18:44 37.4 77 20 132/72 (92) 95 Room Air 06/15/17 16:00 147/76 (99) 06/15/17 16:00 Room Air 06/15/17 15:50 75 146/76 (99) 06/15/17 15:20 157/117 (130) 06/15/17 15:17 36.7 71 18 174/83 (113) 98 Room Air 06/15/17 12:18 37.4 69 18 167/80 (109) 94 Room Air 06/15/17 12:00 Room Air 06/15/17 11:42 37.4 71 16 146/85 (105) 94 Room Air GENERAL: Elderly female, seems comfortable, not in any distress. HEENT: Atraumatic, normocephalic. NECK: Supple, no JVD, no carotid bruit appreciated. ENT: No sinus tenderness MOUTH and THROAT: Moist oral mucosa, no oral ulcer or pharyngeal erythema RESPIRATORY: Normal breathing efforts, no accessory muscle use, clear to auscultation bilaterally, no wheezes or rales. CARDIOVASCULAR: S1, S2 normal, rate rhythm regular. ABDOMEN: Soft, nontender, positive bowel sound. MUSCULOSKELETAL: No CVA tenderness. No joint swelling, erythema or tenderness. Normal range of motion. SKIN: No skin rash EXTREMITY: No lower extremity edema NEURO: Moves all extremities Laboratory Results Last 24 Hours Test 06/15/17 14:39 06/15/17 17:48 06/15/17 19:30 06/15/17 20:35 Sodium Level 121 mmol/L 122 mmol/L 122 mmol/L Potassium Level 3.1 mmol/L 2.8 mmol/L Chloride Level 90 mmol/L 89 mmol/L Carbon Dioxide Level 23 mmol/L 26 mmol/L Anion Gap 8.0 mmol/L 7.0 mmol/L Blood Urea Nitrogen 9 mg/dl 8 mg/dl Creatinine 0.66 mg/dl 0.70 mg/dl Est Creatinine Clear Calc Drug Dose 63.6 ml/min 60.0 ml/min Estimated GFR () 104.5 102.5 Estimated GFR (Non- 90.1 88.4 BUN/Creatinine Ratio 13.8 11.4 Random Glucose 110 mg/dl 92 mg/dl Calcium Level 7.7 mg/dl 8.0 mg/dl Osmolality 248 mOsm/kg Urine Osmolality 333 mOms/kg Urine Random Sodium 86 mEq/L Test 06/15/17 22:56 06/16/17 00:50 06/16/17 01:59 06/16/17 05:24 Sodium Level 121 mmol/L 127 mmol/L 133 mmol/L Potassium Level 2.6 mmol/L 4.4 mmol/L 4.7 mmol/L Chloride Level 90 mmol/L 97 mmol/L 104 mmol/L Carbon Dioxide Level 25 mmol/L 25 mmol/L 24 mmol/L Anion Gap 6.0 mmol/L 5.0 mmol/L 5.0 mmol/L Blood Urea Nitrogen 8 mg/dl 8 mg/dl 8 mg/dl Creatinine 0.60 mg/dl 0.69 mg/dl 0.70 mg/dl Est Creatinine Clear Calc Drug Dose 70.0 ml/min 60.9 ml/min 60.0 ml/min Estimated GFR () 107.8 102.9 102.5 Estimated GFR (Non- 93.0 88.8 88.4 BUN/Creatinine Ratio 13.0 11.3 11.6 Random Glucose 100 mg/dl 100 mg/dl 92 mg/dl Calcium Level 8.0 mg/dl 7.6 mg/dl 8.5 mg/dl Total Bilirubin 0.4 mg/dl Aspartate Amino Transf (AST/SGOT) 28 U/L Alanine Aminotransferase (ALT/SGPT) 22 U/L Alkaline Phosphatase 50 U/L Total Protein 5.9 gm/dl Albumin 2.9 gm/dl Globulin 3.0 gm/dl Albumin/Globulin Ratio 1.0 Urine Osmolality 271 mOms/kg Urine Random Potassium 14.6 mEq/L White Blood Count 5.67 K/uL Red Blood Count 3.52 M/uL Hemoglobin 11.0 g/dL Hematocrit 31.8 % Mean Corpuscular Volume 90.3 fL Mean Corpuscular Hemoglobin 31.3 pg Mean Corpuscular Hemoglobin Concent 34.6 g/dl Platelet Count 182 K/uL Mean Platelet Volume 8.5 fL Neutrophils (%) (Auto) 64.0 % Lymphocytes (%) (Auto) 24.2 % Monocytes (%) (Auto) 10.1 % Eosinophils (%) (Auto) 1.1 % Basophils (%) (Auto) 0.4 % Neutrophils # (Auto) 3.64 K/uL Lymphocytes # (Auto) 1.37 K/uL Monocytes # (Auto) 0.57 K/uL Eosinophils # (Auto) 0.06 K/uL Basophils # (Auto) 0.02 K/uL RDW Standard Deviation 38.1 fL RDW Coefficient of Variation 11.6 % Immature Granulocyte % (Auto) 0.2 % Immature Granulocyte # (Auto) 0.01 K/uL Erythrocyte Sedimentation Rate 14 mm/hr Osmolality 278 mOsm/kg Magnesium Level 2.2 mg/dl C-Reactive Protein 0.62 mg/dl Rheumatoid Factor < 10.0 U/mL Test 06/16/17 08:18 Sodium Level 134 mmol/L Potassium Level 4.6 mmol/L Chloride Level 105 mmol/L Carbon Dioxide Level 25 mmol/L Anion Gap 4.0 mmol/L Blood Urea Nitrogen 8 mg/dl Creatinine 0.82 mg/dl Est Creatinine Clear Calc Drug Dose 55.5 ml/min Estimated GFR () 84.6 Estimated GFR (Non- 73.0 BUN/Creatinine Ratio 9.8 Random Glucose 91 mg/dl Calcium Level 8.8 mg/dl Impression (1) Hyponatremia (2) Hypokalemia (3) Hypertensive emergency (4) Altered mental status Sangeeta Is a 71-year-old female admitted to the hospital with altered mental status and hypertensive emergency. Blood pressure currently improved and systolic blood pressure staying around 150s to 160s. Currently on p.r.n. hydralazine. 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 She developed to acute hyponatremia, serum sodium dropped to 121, urine osmolality was above 300. Had significant hypokalemia serum sodium serum potassium dropped to 2.8, TT kg was 3.5 suggestive possible GI loss with ongoing diarrhea. Hyponatremia possibly multifactorial, there is evidence of inappropriately high ADH and some contribution from decreased free water clearance with low solute load possibly from chronic alcohol intake. Mental status change may not be directly related to hyponatremia as she presented with change in mental status when her electrolytes were normal. Has history of chronic hyponatremia. Recommendations --As serum sodium rapidly increased to 134, will give her D5W 500 mL x1 dose, check serum sodium every 4 hours, aim to keep serum sodium from 127-130 by tomorrow morning --potassium corrected, will continue to monitor --encourage oral fluid intake --encourage high-protein diet to increase solute load and free water excretion --discussed in detail with her daughter and son-in-law at bedside Thank you for allowing me to participate in your patient's care. It was a pleasure to see Uma This chart was completed utilizing [employer] Speech and voice recognition software. Grammatical errors, random word insertions, pronoun errors and incomplete sentences are occasional consequences of this system. Any questions or concerns about the content, text or information contained within the body of this dictation should be addressed directly to the physician for clarification.
[2017-06-16 12:42] LABS: BUN/CREATININE RATIO 11.7 (10-20); CREATININE 0.81 mg/dl (0.60-1.20); POTASSIUM 4.3 mmol/L (3.5-5.1)
[2017-06-16] MEDS ORDERED: DEXTROSE 5% 1000ML 500 ML IV SCH (17:45)
[2017-06-16] MEDS: CHLORDIAZEPOXIDE 25MG Q8H DOSE PO SCH (22:02)
[2017-06-16] MEDS: DEXTROSE 5% 1000ML 1,000 ML IV SCH (23:24)
[2017-06-17] VITALS (7 sets, daily range): BP systolic 109–119; BP diastolic 49–68; PULSE 80–87; TEMP 36.4–37.2; O2SAT 95–98
[2017-06-17] MEDS: DEXTROSE 5% 1000ML 1,000 ML IV SCH (05:57)
[2017-06-17] MEDS: CHLORDIAZEPOXIDE 25MG Q8H DOSE PO SCH ×2 (05:58→15:45)
--- NOTE | 2017-06-17 06:57 | Family Medicine Progress Note ---
Progress Note Date of Service Jun 17, 2017. Subjective Pt evaluation today including: conversation w/ patient, conversation w/ family , physical exam, chart review, lab review, review of studies, conversation w/ functional consultant, review of inpatient medication list Patient doing well this morning. States she feels a lot better rested after having caught up and sleep yesterday. She denies any acute overnight events. Her main concern is her ongoing diarrhea this time. She denies fevers, chills, chest pain, dyspnea. Even with diarrhea she denies any abdominal pain, cramping, nausea, skin irritation in the groin area. Family notes that she is doing better, although she still has difficulty with immediate recall as she is asking questions repeatedly despite having been answered only minutes prior. Otherwise patient denies any confusion, slurring of speech, headaches, visual changes, weakness of any part of her body. She has been ambulating only to go to the bathroom and though she might feel a little unsteady on her feet is not having any other issues with ambulation otherwise. She has been tolerating diet, and attempting to keep herself well hydrated. She denies issues with voiding. ROS unremarkable except as noted above. Objective Vital Signs Date Time Temp Pulse Resp B/P (MAP) Pulse Ox O2 Delivery O2 Flow Rate FiO2 06/17/17 04:02 Room Air 06/17/17 03:44 37.2 87 18 110/53 (72) 96 Room Air 06/16/17 23:15 Room Air 06/16/17 23:00 37.4 87 17 126/57 (80) 94 Room Air 06/16/17 21:55 85 135/61 (85) 06/16/17 19:45 Room Air 06/16/17 19:21 37.1 86 20 134/60 (84) 97 Room Air 06/16/17 16:00 96 Room Air 06/16/17 14:57 36.8 78 18 123/78 (93) 96 Room Air 06/16/17 12:47 36.5 74 18 136/69 (91) 94 Room Air 06/16/17 12:00 94 Room Air 2.0 06/16/17 10:45 36.6 88 18 149/83 (105) 94 Room Air 06/16/17 08:04 100 Room Air Physical Exam General Appearance: WD/WN, no apparent distress Eyes: normal inspection ENT: hearing grossly normal Neck: supple Respiratory/Chest: lungs clear, normal breath sounds, no respiratory distress, no accessory muscle use Cardiovascular: regular rate, rhythm, no murmur Abdomen: normal bowel sounds, non tender, soft Extremities: normal inspection, no pedal edema, no calf tenderness Neurologic/Psychiatric: alert, normal mood/affect, + disoriented Skin: normal color, warm/dry, no rash Laboratory Results Results Past 24 Hours Test 06/17/17 06:59 06/17/17 12:04 06/17/17 18:12 Range/Units White Blood Count 10.44 4.8-10.8 K/uL Red Blood Count 3.31 4.2-5.4 M/uL Hemoglobin 10.4 12.0-16.0 g/dL Hematocrit 30.4 37-47 % Mean Corpuscular Volume 91.8 80-100 fL Mean Corpuscular Hemoglobin 31.4 25-34 pg Mean Corpuscular Hemoglobin Concent 34.2 32-36 g/dl Platelet Count 194 130-400 K/uL Mean Platelet Volume 8.4 7.4-10.4 fL Neutrophils (%) (Auto) 69.2 % Lymphocytes (%) (Auto) 18.9 % Monocytes (%) (Auto) 10.2 % Eosinophils (%) (Auto) 1.3 % Basophils (%) (Auto) 0.1 % Neutrophils # (Auto) 7.23 1.4-6.5 K/uL Lymphocytes # (Auto) 1.97 1.2-3.4 K/uL Monocytes # (Auto) 1.06 0.11-0.59 K/uL Eosinophils # (Auto) 0.14 0-0.5 K/uL Basophils # (Auto) 0.01 0-0.2 K/uL RDW Standard Deviation 41.2 36.4-46.3 fL RDW Coefficient of Variation 12.1 11.5-14.5 % Immature Granulocyte % (Auto) 0.3 % Immature Granulocyte # (Auto) 0.03 0.00-0.02 K/uL Sodium Level 134 137 137 136-145 mmol/L Potassium Level 3.8 3.5-5.1 mmol/L Chloride Level 104 98-107 mmol/L Carbon Dioxide Level 25 21-32 mmol/L Anion Gap 5.0 3-11 mmol/L Blood Urea Nitrogen 7 7-18 mg/dl Creatinine 0.81 0.60-1.20 mg/dl Est Creatinine Clear Calc Drug Dose 56.2 ml/min Estimated GFR () 85.9 Estimated GFR (Non- 74.1 BUN/Creatinine Ratio 8.9 10-20 Random Glucose 106 70-99 mg/dl Calcium Level 8.4 8.5-10.1 mg/dl Assessment and Plan 71 y/o F with h/o of HTN, CVA, HPL, severe asthma, anx/depression who presented with n/v + confusion, found to be in HTN urgency. Initially treated with nicardipine that seemed to reduce her pressures adequately. She was then transitioned to home meds which did not completely control her pressures. She was again transitioned to carvedilol, hydralazine IV PRN and maintained on Cozaar (home med). She underwent an LP 06/14/17 after which she started showing worsening AMS/ confusion and hallucinations. She was started on Alcohol withdrawal protocol based on her AWSS and CIWA scores. This continued to wax and wane into the night. Her pressures were also labile. This has shown improvement in the subsequent days with gradually improving responsiveness and fewer episodes of intermittent confusion/hallucinations. 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 While she is not presenting as a typical seizures, anti-convulsant was commenced and further serum and CSF evaluation initiated given her constellation of symptoms and LP negative for infectious etiology. Altered mental status, waxing/waning Differentials:? HTN encephalopathy vs. CVA (less likely, atypical?) vs. infectious etiology (ruled out) vs. hyponatremia vs limbic encephalitis vs. paraneoplastic syndromes vs. autoimmune conditions Reviewed Imaging: Brain MRI: Abnormality in left hippocampus atypical for ischemia, ? herpes encephalitis vs limbic encephalitis vs. seizure Head MRA- stenosis of jena of Nguyen- distal right Vertebral artery Neck MRA- normal carotids Head CT- Negative LP under fluoroscopy- negative csf anaylsis EEG concerning for epileptiform activity - started on Depakote 500 mg Repeat MRI with contrast report unchanged from previous Voltage gated potassium channel antibody, anti- hu , anti-nmda (serum and CSF) sent out and pending Appreciate neurology recs Continue Plavix 75 mg and atorvastatin 40mg Mentation imrproved. High suspicion related to alcohol, but will await send out lab results. Hyponatremia, worsening Initially noted to drop to 125 from 130. Unsure of what % of this contributed to her AMS given that on admission her Na was 134 and she had similar symptoms Fluids changed from 1/2 NS to NSS, with boluses of hypertonic saline/D5 as appropriate. Repeat BMP scheduled q6h previously, showed stabilized sodium. IVF discontinued, and PO intake encouraged. Nephrology consulted, recs appreciated Continue to trend BMP Chronic diarrhea C.diff toxin negative, Other stool studies pending: leukocytes, culture, O&P, Giardia. Will treat as appropriate. Insertion of rectal tube if patient desires HTN urgency (possibly related to alcohol) Improved with Nicardipine initially Currently on Hydralazine, Cozaar, Carvedilol Cardiology consulted, appreciate recs Echo- EF of 55-60%, mild AR, grade 1 Diastolic dysf. no pulm HTN, trace effusion Blood cultures pending - ?emboli form endocarditis? Alcohol withdrawal Ciwa score of 2 this morning Banana bag, Librium Did not order Ativan PRN (could worsening ams with too much benzo) Discharge planning Tachycardia likely 2/2 to anxiety/withdrawal - resolved Improved during stay Glucose intolerance A1c of 6.1 Depending on how long she has been prediabetic and her willingness to correct with lifestyle changes May discuss starting pharmacologic glycemic control Sleep apnea: Encourage consistent use of CPAP machine at home Also maybe contributing to HTN and risk of CVA Ordered CPAP for use in hospital Memory loss (pre-existing) Neuropsych testing scheduled this Sunday Family history of Alzheimer/dementia Anxiety /depression Continue venlafaxine and clonazepam Asthma, stable DVT proph Heparin sq Code: Full Continued [facility] stay due to: other Resident Tracking Resident Involvement: Resident Care Provided Care Provided: Adult Hospital Medicine History Resident Physician Supervision Note: I was present with Dr. Sanchez during the history and exam. I discussed the case with the resident and agree with the findings and plan as documented in the note. Any exceptions or clarifications are listed here. Pt seen and examined at bedside. Oriented x 3 with significantly improved mentation at this time. Persistent diarrhea now down to 3x per day. General Appearance: WD/WN, no apparent distress Respiratory: chest non-tender, lungs clear, normal breath sounds, no respiratory distress Cardiovascular: normal peripheral pulses, regular rate, rhythm, no edema, no murmur Gastrointestinal: normal bowel sounds, non tender, soft, no organomegaly Assessment/Plan 71 y/o female h/o HTN p/w hypertensive emergency Hyponatremia - nephrology consulted - significantly improved and back to expected baseline Delirium - potentially 2/2 etOH withdrawal v. hyponatremia v. limbic lesion - improving well, continue CIWA protocol Abnormal MRI - neurology aware, input appreciated - LP and EEG today for evaluation of atypical limbic findings - continue depakote, statin therapy, plavix. Multiple paraneoplastic labs pending Chronic diarrhea - c. diff negative - f/u stool studies HTN Urgency - likely etOH withdrawal, improved w/ CIWA - continue hydralazine 5mg IV PRN. BCx NGTD Tachycardia - improved Asthma - at baseline - continue chronic medications Anxiety/depression - cont Venlafaxine, Clonazepam
[2017-06-17 07:31] LABS: BASO % 0.1 %; BASO ABS # 0.01 K/uL (0-0.2); COMPLETE YES; EOS % 1.3 %; HEMATOCRIT 30.4 % (37-47); IG% 0.3 %; LYMPH % 18.9 %; LYMPH ABS # 1.97 K/uL (1.2-3.4); MEAN CELL VOLUME 91.8 fL (80-100); MEAN CORPUSCULAR HEMOGLOBIN 31.4 pg (25-34); MEAN CORPUSCULAR HGB CONC 34.2 g/dl (32-36); MEAN PLATELET VOLUME 8.4 fL (7.4-10.4); MONO % 10.2 %; NEUT % 69.2 %; PLATELET COUNT 194 K/uL (130-400); RED BLOOD COUNT 3.31 M/uL (4.2-5.4); WHITE BLOOD COUNT 10.44 K/uL (4.8-10.8)
[2017-06-17 08:04] LABS: BUN/CREATININE RATIO 8.9 (10-20); CALCIUM 8.4 mg/dl (8.5-10.1); CREATININE 0.81 mg/dl (0.60-1.20); POTASSIUM 3.8 mmol/L (3.5-5.1)
[2017-06-17] MEDS: VENLAFAXINE HCL XR 37.5 MG CAPXR PO SCH (08:58)
[2017-06-17] MEDS: CLOPIDOGREL BISULFATE 75 MG TAB PO SCH (08:58)
[2017-06-17] MEDS: ATORVASTATIN 40 MG TAB PO SCH (08:58)
[2017-06-17] MEDS: DIVALPROEX 500 MG EXTENDED RELEASE TAB PO SCH (08:58)
[2017-06-17] MEDS: LOSARTAN POTASSIUM 50 MG TAB PO SCH (08:59)
[2017-06-17] MEDS: THIAMINE HCL INJ 100 MG in SYRINGE 9 ML IV SCH (08:59)
[2017-06-17] MEDS: CARVEDILOL 12.5 MG TAB PO SCH ×2 (08:59→20:15)
[2017-06-17] MEDS: FoLIC ACID INJ 1 MG in SYRINGE 9.8 ML IV SCH (08:59)
[2017-06-17] MEDS: HEPARIN SOD 5000 UNIT/0.5 ML CARP SQ SCH ×2 (09:02→20:31)
--- NOTE | 2017-06-17 10:18 | Neurology Progress Notes ---
Neurology Progress Note Date of Service Jun 17, 2017. Subjective The patient feels much better with no pain or headache. She is not agitated or restless. She is not confused as far she is aware. The patient is not short of breath that has no dizziness. She has no vision problems or speech issues. She has no tremor. She does feel somewhat tired still. MRI of the brain with and without contrast was obtained yesterday and showed the left temporal lesion as before with no changes. It did not enhance. Although ischemia is felt to be less likely it is not completely excluded. 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 I reviewed this with the patient and her and daughter who are present at bedside today. Laboratory studies have been stable and her sodium is improved at 134. I reviewed these with the patient as well. Objective Date Time Temp Pulse Resp B/P (MAP) Pulse Ox O2 Delivery O2 Flow Rate FiO2 06/17/17 07:37 36.4 81 16 113/65 (81) 98 Room Air 06/17/17 06:52 37.2 86 18 112/49 (70) 97 Room Air 06/17/17 04:02 Room Air 06/17/17 03:44 37.2 87 18 110/53 (72) 96 Room Air 06/16/17 23:15 Room Air 06/16/17 23:00 37.4 87 17 126/57 (80) 94 Room Air 06/16/17 21:55 85 135/61 (85) 06/16/17 19:45 Room Air 06/16/17 19:21 37.1 86 20 134/60 (84) 97 Room Air 06/16/17 16:00 96 Room Air 06/16/17 14:57 36.8 78 18 123/78 (93) 96 Room Air 06/16/17 12:47 36.5 74 18 136/69 (91) 94 Room Air 06/16/17 12:00 94 Room Air 2.0 06/16/17 10:45 36.6 88 18 149/83 (105) 94 Room Air Last 24 Hours Test 06/16/17 12:02 06/16/17 15:46 06/16/17 19:44 06/16/17 20:28 Sodium Level 135 mmol/L 135 mmol/L 136 mmol/L Potassium Level 4.3 mmol/L Chloride Level 107 mmol/L Carbon Dioxide Level 23 mmol/L Anion Gap 5.0 mmol/L Blood Urea Nitrogen 10 mg/dl Creatinine 0.81 mg/dl Est Creatinine Clear Calc Drug Dose 56.2 ml/min Estimated GFR () 85.9 Estimated GFR (Non- 74.1 BUN/Creatinine Ratio 11.7 Random Glucose 94 mg/dl Calcium Level 9.0 mg/dl Test 06/16/17 21:50 06/16/17 23:34 06/17/17 03:43 06/17/17 06:59 Sodium Level 134 mmol/L 133 mmol/L 134 mmol/L White Blood Count 10.44 K/uL Red Blood Count 3.31 M/uL Hemoglobin 10.4 g/dL Hematocrit 30.4 % Mean Corpuscular Volume 91.8 fL Mean Corpuscular Hemoglobin 31.4 pg Mean Corpuscular Hemoglobin Concent 34.2 g/dl Platelet Count 194 K/uL Mean Platelet Volume 8.4 fL Neutrophils (%) (Auto) 69.2 % Lymphocytes (%) (Auto) 18.9 % Monocytes (%) (Auto) 10.2 % Eosinophils (%) (Auto) 1.3 % Basophils (%) (Auto) 0.1 % Neutrophils # (Auto) 7.23 K/uL Lymphocytes # (Auto) 1.97 K/uL Monocytes # (Auto) 1.06 K/uL Eosinophils # (Auto) 0.14 K/uL Basophils # (Auto) 0.01 K/uL RDW Standard Deviation 41.2 fL RDW Coefficient of Variation 12.1 % Immature Granulocyte % (Auto) 0.3 % Immature Granulocyte # (Auto) 0.03 K/uL Potassium Level 3.8 mmol/L Chloride Level 104 mmol/L Carbon Dioxide Level 25 mmol/L Anion Gap 5.0 mmol/L Blood Urea Nitrogen 7 mg/dl Creatinine 0.81 mg/dl Est Creatinine Clear Calc Drug Dose 56.2 ml/min Estimated GFR () 85.9 Estimated GFR (Non- 74.1 BUN/Creatinine Ratio 8.9 Random Glucose 106 mg/dl Calcium Level 8.4 mg/dl Imaging: MRI OF THE BRAIN WITHOUT AND WITH IV CONTRAST CLINICAL HISTORY: confusion PREVIOUS ABNORMAL MRI DATED 06/14/2017 COMPARISON STUDY: No previous studies for comparison. TECHNIQUE: MRI of the brain was performed from the vertex to the skull base utilizing various T1 and T2 weighted sequences. Following the IV administration of 6 mL of Gadavist contrast, additional enhanced images were obtained. FINDINGS: Sagittal T1, axial diffusion, proton density and T2 weighted axial, coronal FLAIR, and pre and post axial T1-weighted images were acquired. These were supplemented with post gadolinium coronal T1 weighted images. No intra or extra-axial mass lesions are visualized. There is a persistent nonspecific focus of restricted water diffusion involving the left medial temporal lobe/hippocampus. There is no evidence of ventricular dilatation. Proton density T2-weighted and FLAIR images reveal scattered foci of increased T2 signal within the white matter, likely on a small vessel basis. In addition there is stable increased FLAIR signal involving the left medial temporal lobe/hippocampus. There are no abnormal flow voids. There is no evidence of pathologic enhancement. IMPRESSION: 1. No significant change from the preceding examination 2. Persistent focus of increased FLAIR signal within the left hippocampus associated with restricted water diffusion. There is no pathologic enhancement. As was previously stated, the distribution is not typical for ischemia. Other possible etiologies include, a post-ictal state, limbic encephalitis, and herpes encephalitis. Electronically signed by: Olvin Gabriel M.D. 06/16/2017 11:44 AM Exam: She is awake and alert. Her speech is without aphasia or dysarthria. Mood and affect are normal and appropriate. Thought processes are intact with no aphasia or dysarthria. She does not seem confused. She is pleasant and cooperative. Extraocular eye muscles are intact without nystagmus. There is no facial droop. Gait is stable but stance sitting up in bed is normal. With outstretched arms, there is no drift. There is no resting, postural, or action tremor. Strength is 5/5 symmetrical in all 4 limbs. There is good tone of the limbs. Current Inpatient Medications Medications (Trade) Dose Ordered Sig/Breanne Route Start Time Stop Time Status Last Admin Dose Admin Heparin Sodium (Porcine) (Heparin Sq 5000 Unit/0.5ml) 5,000 unit Q12 SQ 06/13/17 21:00 07/13/17 20:59 06/17/17 09:02 5,000 UNIT Acetaminophen (Tylenol Tab) 650 mg Q4H PRN PO 06/13/17 20:15 07/13/17 20:14 Al Hydrox/Mg Hydrox/Simethicone (Maalox Max Susp) 15 ml Q4H PRN PO 06/13/17 20:15 07/13/17 20:14 Magnesium Hydroxide (Milk Of Magnesia Susp) 30 ml Q12H PRN PO 06/13/17 20:15 07/13/17 20:14 Ondansetron HCl (Zofran Inj) 4 mg Q6H PRN IV 06/13/17 20:15 07/13/17 20:14 06/16/17 11:18 4 MG Morphine Sulfate (MoRPHine SULFATE INJ) 2 mg Q30M PRN IV 06/13/17 20:15 06/27/17 20:14 Polyethylene (Miralax Powder Packet) 17 gm DAILY PRN PO 06/13/17 20:15 07/13/17 20:14 Clonazepam (Klonopin Tab) 0.5 mg TID PRN PO 06/13/17 20:15 07/13/17 20:14 06/15/17 15:15 0.5 MG Venlafaxine HCl (effeXOR EXTENDED REL CAP) 37.5 mg DAILY PO 06/14/17 09:00 07/14/17 08:59 06/17/17 08:58 37.5 MG Atorvastatin Calcium (Lipitor Tab) 40 mg QAM PO 06/14/17 09:00 07/14/17 08:59 06/17/17 08:58 40 MG Losartan Potassium (coZAAR TAB) 100 mg QAM PO 06/14/17 09:00 07/14/17 08:59 06/17/17 08:59 100 MG Levalbuterol (Xopenex 1.25MG/ 3ML Neb) 1.25 mg Q4H PRN INH 06/14/17 01:45 07/14/17 01:44 Hydralazine HCl (HydrALAZINE INJ) 10 mg Q6 PRN IV. 06/14/17 15:45 07/14/17 15:44 06/15/17 15:30 10 MG Carvedilol (Coreg Tab) 12.5 mg BID PO 06/14/17 21:00 07/14/17 20:59 06/17/17 08:59 12.5 MG Chlordiazepoxide (Librium Cap) 25 mg Q8H PO 06/16/17 22:00 06/17/17 14:01 06/16/17 22:02 25 MG Chlordiazepoxide (Librium Cap) 10 mg Q12H PO 06/17/17 21:00 06/18/17 09:01 Clopidogrel Bisulfate (plAVix TAB) 75 mg QAM PO 06/15/17 09:00 07/15/17 08:59 06/17/17 08:58 75 MG Divalproex Sodium (Depakote Extended Rel Tab) 500 mg DAILY PO 06/15/17 11:00 07/15/17 10:59 06/17/17 08:58 500 MG Folic Acid 1 mg/ Syringe 10 ml @ 5 mls/min DAILY IV 06/15/17 19:00 06/17/17 18:29 06/17/17 08:59 5 MLS/MIN Thiamine HCl 100 mg/Syringe 10 ml @ 2 mls/min DAILY IV 06/15/17 19:00 06/17/17 18:29 06/17/17 08:59 2 MLS/MIN Gadobutrol (Gadavist) 6 mmol UD PRN IV 06/16/17 11:45 06/20/17 11:44 Impression 1. Acute encephalopathy June 13. This was markedly improved the first day after admission, she's had a fluctuating mental status/confusional state since. She has been markedly improved over the last 24 hours. She is more awake too. The acute hypertension was responsible for initiating this. Her blood pressure is markedly improved. There are other contributing factors: however. She has hyponatremia, as well as alcohol withdrawal. These are both markedly improved. I still cannot entirely exclude a medial temporal stroke (or relative ischemia) on the left, however this is deemed to be less likely according to the radiologist. 2. 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 Paraneoplastic antibodies, Anti-Hu, NMDA, And VGKC have been ordered. Some paraneoplastic syndromes give unilateral MRI findings, along with confusion , memory issues, seizures, and even hyponatremia. LP was not consistent with infection and EEG, although it showed spike activity did not show PLED's consistent with herpes encephalitis. Other inflammatory origin is possible. She has had no seizure activity clinically since admission. She is stable on Depakote 500 mg daily. 3. Hypertension Typically this is controlled easily as an outpatient but she is had a marked increase on admission. Her blood pressure has been improved over the last 24-48 hours. This is improved this morning 4. Old small vessel ischemic changes of a moderate nature seen on MRI. These would be secondary to her chronic history of hypertension and other risk factors for small vessel ischemic disease. This has been despite 81mg ASA daily In addition she has multifocal areas of stenosis scattered cerebrally as noted by MR angiography of the head 5. Mild elevated glucose, hemoglobin A1c with no history of diabetes 6. Hyponatremia (125) of uncertain etiology, now improving with treatment Hyponatremia can increase likelihood of seizures, imitate stroke, and cause encephalopathy. 7. Essential tremor, mild, now improved 8. Cognitive dysfunction over the last 8 years, thought to be progressive by family members I suspect she has a dementia which is probably multifactorial including vascular and excessive alcohol usage. With an underlying dementia, any metabolic or other factor leading to confusion will make her cognitive problems much worse. 9. History of sleep apnea. She is not using C Pap on a regular basis. Sleep apnea puts her at risk for increased cerebral and cardiac issues. Plan 1. Continue Depakote ER 500 once daily, in order to suppress spike activity and see if this changes altered mental status. One day prior to discharge, check a level and adjust accordingly. 2. Treat patient with standard alcohol withdrawal protocol, using B vitamins, and benzodiazepines judiciously (we will try not to use excessive benzodiazepines as this will contribute to altered mental status) 3. Control blood pressure as you're doing 4. The patient has neuropsychological testing scheduled for next week at [facility]. unfortunately I am not sure she will be able to keep this. This will have to be rescheduled. 5. Discontinue all alcohol usage as an outpatient. 6. Use C Pap machine regularly for sleep apnea 7. Continuer Plavix 75 mg a day instead of 81 mg aspirin, in lieu of the focal stenoses seen on MR angiography as well as her small vessel ischemic change. 8. When able, initiate exercise routine 9. Replace sodium slowly, to avoid central pontine myelolysis. Dr. Benavides is treating this 10. Awaiting paraneoplastic antibody titers and other labs I Overall, I spent 30 minutes with this case including discussion with family and the patient at bedside, and discussion with her attending physician.
[2017-06-17 11:37] LABS: NORMETANEPHRINE PLASMA 276 pg/mL (<=148); TOTAL METANEPHRINE PLASMA 369 pg/mL (<=205)
--- NOTE | 2017-06-17 11:54 | Nephrology Progress Note ---
Nephrology Progress Note Date of Service Jun 17, 2017. Chief Complaint F/U for acute hyponatremia and hypokalemia. Shane Rutherford was seen with her at bedside. She was resting comfortably. Blood pressure better controlled. Serum sodium improved and staying stable around 133 -134, potassium normalized. Her p.o. intake continues to be poor. Review of Systems Review of system was not possible. Vital Signs Last 8 Hrs Date Time Temp Pulse Resp B/P (MAP) Pulse Ox O2 Delivery O2 Flow Rate FiO2 06/17/17 07:37 36.4 81 16 113/65 (81) 98 Room Air 06/17/17 06:52 37.2 86 18 112/49 (70) 97 Room Air 06/17/17 04:02 Room Air 06/17/17 03:44 37.2 87 18 110/53 (72) 96 Room Air Last Recorded Weight Weight (Kilograms): 60.600 Physical Exam GENERAL: elderly female , resting comfortably, not in any distress. Detailed exam was not done as patient just went into sleep and family requested not to wake her up Family History Hypertension Social History Smoking Status: Former smoker Smokeless Tobacco Use: No Alcohol Use: heavy Drug Use: none Marital Status: Housing Status: lives with significant other Occupation: retired Laboratory Results Past 24 Hours 06/17/17 06:59 Red Blood Count 3.31, Mean Corpuscular Volume 91.8, Mean Corpuscular Hemoglobin 31.4, Mean Corpuscular Hemoglobin Concent 34.2, Mean Platelet Volume 8.4, Neutrophils (%) (Auto) 69.2, Lymphocytes (%) (Auto) 18.9, Monocytes (%) (Auto) 10.2, Eosinophils (%) (Auto) 1.3, Basophils (%) (Auto) 0.1, Neutrophils # (Auto ) 7.23, Lymphocytes # (Auto) 1.97, Monocytes # (Auto) 1.06, Eosinophils # (Auto ) 0.14, Basophils # (Auto) 0.01 06/16/17 12:02 06/16/17 15:46 06/16/17 19:44 06/16/17 23:34 06/17/17 03:43 06/17/17 06:59 Test 06/16/17 12:02 06/16/17 20:28 06/16/17 21:50 06/17/17 06:59 Anion Gap 5.0 mmol/L (3-11) 5.0 mmol/L (3-11) Est Creatinine Clear Calc Drug Dose 56.2 ml/min 56.2 ml/min Estimated GFR () 85.9 85.9 Estimated GFR (Non- 74.1 74.1 BUN/Creatinine Ratio 11.7 (10-20) 8.9 (10-20) Calcium Level 9.0 mg/dl (8.5-10.1) 8.4 mg/dl (8.5-10.1) White Blood Count 10.44 K/uL (4.8-10.8) Red Blood Count 3.31 M/uL (4.2-5.4) Hemoglobin 10.4 g/dL (12.0-16.0) Hematocrit 30.4 % (37-47) Mean Corpuscular Volume 91.8 fL (80-100) Mean Corpuscular Hemoglobin 31.4 pg (25-34) Mean Corpuscular Hemoglobin Concent 34.2 g/dl (32-36) Platelet Count 194 K/uL (130-400) Mean Platelet Volume 8.4 fL (7.4-10.4) Neutrophils (%) (Auto) 69.2 % Lymphocytes (%) (Auto) 18.9 % Monocytes (%) (Auto) 10.2 % Eosinophils (%) (Auto) 1.3 % Basophils (%) (Auto) 0.1 % Neutrophils # (Auto) 7.23 K/uL (1.4-6.5) Lymphocytes # (Auto) 1.97 K/uL (1.2-3.4) Monocytes # (Auto) 1.06 K/uL (0.11-0.59) Eosinophils # (Auto) 0.14 K/uL (0-0.5) Basophils # (Auto) 0.01 K/uL (0-0.2) RDW Standard Deviation 41.2 fL (36.4-46.3) RDW Coefficient of Variation 12.1 % (11.5-14.5) Immature Granulocyte % (Auto) 0.3 % Immature Granulocyte # (Auto) 0.03 K/uL (0.00-0.02) Date/Time Source Procedure Growth Status 06/16/17 21:50 Stool C.difficile Toxin B Gene (PCR) - Final No C. difficile toxin B gene detected Complete Allergies Coded Allergies: Levofloxacin (Verified Allergy, Severe, ANAPHYLAXIS, 01/05/17) Quinolones (Verified Allergy, Severe, RASH, 01/05/17) Avelox and levaquin Molds and Smuts (Verified Allergy, Mild, SEASONAL ALLERGY SYMPTOMS, 01/05/17 ) Amoxicillin (Verified Allergy, Unknown, Nausea, 06/13/17) Clavulanic Acid (Verified Allergy, Unknown, Nausea, 06/13/17) Moxifloxacin (Verified Allergy, Unknown, Nausea, 06/13/17) Doxycycline (Verified Adverse Reaction, Intermediate, nausea, 01/05/17) Erythromycin (Verified Adverse Reaction, Mild, N/V, 01/05/17) Penicillins (Verified Adverse Reaction, Mild, AUGMENTIN-GI UPSET, 01/05/17) GI UPSET Medications Current Inpatient Medications Medications (Trade) Dose Ordered Sig/Breanne Route Start Time Stop Time Status Last Admin Dose Admin Heparin Sodium (Porcine) (Heparin Sq 5000 Unit/0.5ml) 5,000 unit Q12 SQ 06/13/17 21:00 07/13/17 20:59 06/17/17 09:02 5,000 UNIT Acetaminophen (Tylenol Tab) 650 mg Q4H PRN PO 06/13/17 20:15 07/13/17 20:14 Al Hydrox/Mg Hydrox/Simethicone (Maalox Max Susp) 15 ml Q4H PRN PO 06/13/17 20:15 07/13/17 20:14 Magnesium Hydroxide (Milk Of Magnesia Susp) 30 ml Q12H PRN PO 06/13/17 20:15 07/13/17 20:14 Ondansetron HCl (Zofran Inj) 4 mg Q6H PRN IV 06/13/17 20:15 07/13/17 20:14 06/16/17 11:18 4 MG Morphine Sulfate (MoRPHine SULFATE INJ) 2 mg Q30M PRN IV 06/13/17 20:15 06/27/17 20:14 Polyethylene (Miralax Powder Packet) 17 gm DAILY PRN PO 06/13/17 20:15 07/13/17 20:14 Clonazepam (Klonopin Tab) 0.5 mg TID PRN PO 06/13/17 20:15 07/13/17 20:14 06/15/17 15:15 0.5 MG Venlafaxine HCl (effeXOR EXTENDED REL CAP) 37.5 mg DAILY PO 06/14/17 09:00 07/14/17 08:59 06/17/17 08:58 37.5 MG Atorvastatin Calcium (Lipitor Tab) 40 mg QAM PO 06/14/17 09:00 07/14/17 08:59 06/17/17 08:58 40 MG Losartan Potassium (coZAAR TAB) 100 mg QAM PO 06/14/17 09:00 07/14/17 08:59 06/17/17 08:59 100 MG Levalbuterol (Xopenex 1.25MG/ 3ML Neb) 1.25 mg Q4H PRN INH 06/14/17 01:45 07/14/17 01:44 Hydralazine HCl (HydrALAZINE INJ) 10 mg Q6 PRN IV. 06/14/17 15:45 07/14/17 15:44 06/15/17 15:30 10 MG Carvedilol (Coreg Tab) 12.5 mg BID PO 06/14/17 21:00 07/14/17 20:59 06/17/17 08:59 12.5 MG Chlordiazepoxide (Librium Cap) 25 mg Q8H PO 06/16/17 22:00 06/17/17 14:01 06/16/17 22:02 25 MG Chlordiazepoxide (Librium Cap) 10 mg Q12H PO 06/17/17 21:00 06/18/17 09:01 Clopidogrel Bisulfate (plAVix TAB) 75 mg QAM PO 06/15/17 09:00 07/15/17 08:59 06/17/17 08:58 75 MG Divalproex Sodium (Depakote Extended Rel Tab) 500 mg DAILY PO 06/15/17 11:00 07/15/17 10:59 06/17/17 08:58 500 MG Folic Acid 1 mg/ Syringe 10 ml @ 5 mls/min DAILY IV 06/15/17 19:00 06/17/17 18:29 06/17/17 08:59 5 MLS/MIN Thiamine HCl 100 mg/Syringe 10 ml @ 2 mls/min DAILY IV 06/15/17 19:00 06/17/17 18:29 06/17/17 08:59 2 MLS/MIN Gadobutrol (Gadavist) 6 mmol UD PRN IV 06/16/17 11:45 06/20/17 11:44 Impression (1) Hyponatremia (2) Hypokalemia (3) Hypertensive emergency (4) Altered mental status Sangeeta Is a 71-year-old female admitted to the hospital with altered mental status and hypertensive emergency. Blood pressure currently improved and systolic blood pressure staying around 150s to 160s. Currently on p.r.n. hydralazine. 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 She developed to acute hyponatremia, serum sodium dropped to 121, urine osmolality was above 300. Had significant hypokalemia serum sodium serum potassium dropped to 2.8, TT kg was 3.5 suggestive possible GI loss with ongoing diarrhea. Hyponatremia possibly multifactorial, there is evidence of inappropriately high ADH and some contribution from decreased free water clearance with low solute load possibly from chronic alcohol intake. Mental status change may not be directly related to hyponatremia as she presented with change in mental status when her electrolytes were normal. Has history of chronic hyponatremia. Recommendations --serum sodium normalized over last 24 hours staying stable around 133-134 --discontinue D5 water, monitor serum sodium q.12 hours, encourage adequate p.o. intake --if p.o. intake is not adequate serum sodium may go up and may need to start her on D5 again This chart was completed utilizing [employer] Speech and voice recognition software. Grammatical errors, random word insertions, pronoun errors and incomplete sentences are occasional consequences of this system. Any questions or concerns about the content, text or information contained within the body of this dictation should be addressed directly to the physician for clarification.
[2017-06-17] MEDS ORDERED: AMLODIPINE BESYLATE 5 MG TAB PO ONE (14:00)
[2017-06-17] MEDS ORDERED: SODIUM CHLORIDE 0.9% 1000ML 250 ML IV STA (18:56)
[2017-06-17] MEDS: CHLORDIAZEPOXIDE 10MG Q12H DOSE PO SCH (20:18)
[2017-06-18 04:49] VITALS: BP 141/84; PULSE 68; TEMP 36.8; O2SAT 95
[2017-06-18 06:56] VITALS: BP 117/56; PULSE 79; TEMP 36.7; O2SAT 97
[2017-06-18 07:04] LABS: HEMATOCRIT 29.1 % (37-47); MEAN CELL VOLUME 92.4 fL (80-100); MEAN CORPUSCULAR HEMOGLOBIN 32.4 pg (25-34); MEAN CORPUSCULAR HGB CONC 35.1 g/dl (32-36); PLATELET COUNT 197 K/uL (130-400); RED BLOOD COUNT 3.15 M/uL (4.2-5.4)
[2017-06-18] MEDS: CHLORDIAZEPOXIDE 10MG Q12H DOSE PO SCH (07:20)
[2017-06-18] MEDS: CLOPIDOGREL BISULFATE 75 MG TAB PO SCH (07:21)
[2017-06-18] MEDS: VENLAFAXINE HCL XR 37.5 MG CAPXR PO SCH (07:22)
[2017-06-18] MEDS: CARVEDILOL 12.5 MG TAB PO SCH (07:22)
[2017-06-18] MEDS: ATORVASTATIN 40 MG TAB PO SCH (07:22)
[2017-06-18] MEDS: LOSARTAN POTASSIUM 50 MG TAB PO SCH (07:22)
[2017-06-18] MEDS: DIVALPROEX 500 MG EXTENDED RELEASE TAB PO SCH (07:23)
[2017-06-18] MEDS: HEPARIN SOD 5000 UNIT/0.5 ML CARP SQ SCH (07:24)
[2017-06-18 07:33] LABS: BUN/CREATININE RATIO 13.8 (10-20); CALCIUM 8.9 mg/dl (8.5-10.1); CREATININE 0.87 mg/dl (0.60-1.20); POTASSIUM 4.1 mmol/L (3.5-5.1)
[2017-06-18] MEDS ORDERED: AMLODIPINE BESYLATE 5 MG TAB PO SCH (09:00)
--- NOTE | 2017-06-18 10:02 | Nephrology Progress Note ---
Nephrology Progress Note Date of Service Jun 18, 2017. Chief Complaint F/U for acute hyponatremia and hypokalemia. Shane Rutherford was seen with her at bedside. She was resting comfortably, denies any symptoms and overall feels much better and just wants to go home. Blood pressure better controlled. Serum sodium improved and staying stable around 133 - 137, potassium normalized. Her p.o. intake improved. Review of Systems A complete review of systems was performed. Pertinent positives are noted above. All other systems are negative. Vital Signs Last 8 Hrs Date Time Temp Pulse Resp B/P (MAP) Pulse Ox O2 Delivery O2 Flow Rate FiO2 06/18/17 08:00 Room Air 06/18/17 06:56 36.7 79 18 117/56 (76) 97 Room Air 06/18/17 04:49 36.8 68 18 141/84 (103) 95 Room Air 06/18/17 04:00 Room Air Last Recorded Weight Weight (Kilograms): 60.600 Physical Exam GENERAL:middle aged female, AAA x 3, pleasant, healthy-appearing, not in any distress. NECK: Supple, no JVD. RESPIRATORY: Normal breathing efforts, no accessory muscle use, clear to auscultation bilaterally, no wheezes or rales. CARDIOVASCULAR: S1, S2 normal, rate rhythm regular. EXTREMITY: No lower extremity edema NEURO: speech fluent. PSYCHIATRY: Normal mood and judgment Family History Hypertension Social History Smoking Status: Former smoker Smokeless Tobacco Use: No Alcohol Use: heavy Drug Use: none Marital Status: Housing Status: lives with significant other Occupation: retired Laboratory Results Past 24 Hours 06/18/17 06:52 06/17/17 12:04 06/17/17 18:12 06/18/17 06:52 Test 06/18/17 06:52 Red Blood Count 3.15 M/uL (4.2-5.4) Mean Corpuscular Volume 92.4 fL (80-100) Mean Corpuscular Hemoglobin 32.4 pg (25-34) Mean Corpuscular Hemoglobin Concent 35.1 g/dl (32-36) RDW Standard Deviation 41.6 fL (36.4-46.3) RDW Coefficient of Variation 12.2 % (11.5-14.5) Mean Platelet Volume 8.0 fL (7.4-10.4) Anion Gap 4.0 mmol/L (3-11) Est Creatinine Clear Calc Drug Dose 52.3 ml/min Estimated GFR () 78.8 Estimated GFR (Non- 68.0 BUN/Creatinine Ratio 13.8 (10-20) Calcium Level 8.9 mg/dl (8.5-10.1) Allergies Coded Allergies: Levofloxacin (Verified Allergy, Severe, ANAPHYLAXIS, 01/05/17) Quinolones (Verified Allergy, Severe, RASH, 01/05/17) Avelox and levaquin Molds and Smuts (Verified Allergy, Mild, SEASONAL ALLERGY SYMPTOMS, 01/05/17 ) Amoxicillin (Verified Allergy, Unknown, Nausea, 06/13/17) Clavulanic Acid (Verified Allergy, Unknown, Nausea, 06/13/17) Moxifloxacin (Verified Allergy, Unknown, Nausea, 06/13/17) Doxycycline (Verified Adverse Reaction, Intermediate, nausea, 01/05/17) Erythromycin (Verified Adverse Reaction, Mild, N/V, 01/05/17) Penicillins (Verified Adverse Reaction, Mild, AUGMENTIN-GI UPSET, 01/05/17) GI UPSET Medications Current Inpatient Medications Medications (Trade) Dose Ordered Sig/Breanne Route Start Time Stop Time Status Last Admin Dose Admin Heparin Sodium (Porcine) (Heparin Sq 5000 Unit/0.5ml) 5,000 unit Q12 SQ 06/13/17 21:00 07/13/17 20:59 06/18/17 07:24 5,000 UNIT Acetaminophen (Tylenol Tab) 650 mg Q4H PRN PO 06/13/17 20:15 07/13/17 20:14 Al Hydrox/Mg Hydrox/Simethicone (Maalox Max Susp) 15 ml Q4H PRN PO 06/13/17 20:15 07/13/17 20:14 Magnesium Hydroxide (Milk Of Magnesia Susp) 30 ml Q12H PRN PO 06/13/17 20:15 07/13/17 20:14 Ondansetron HCl (Zofran Inj) 4 mg Q6H PRN IV 06/13/17 20:15 07/13/17 20:14 06/16/17 11:18 4 MG Morphine Sulfate (MoRPHine SULFATE INJ) 2 mg Q30M PRN IV 06/13/17 20:15 06/27/17 20:14 Polyethylene (Miralax Powder Packet) 17 gm DAILY PRN PO 06/13/17 20:15 07/13/17 20:14 Clonazepam (Klonopin Tab) 0.5 mg TID PRN PO 06/13/17 20:15 07/13/17 20:14 06/15/17 15:15 0.5 MG Venlafaxine HCl (effeXOR EXTENDED REL CAP) 37.5 mg DAILY PO 06/14/17 09:00 07/14/17 08:59 06/18/17 07:22 37.5 MG Atorvastatin Calcium (Lipitor Tab) 40 mg QAM PO 06/14/17 09:00 07/14/17 08:59 06/18/17 07:22 40 MG Losartan Potassium (coZAAR TAB) 100 mg QAM PO 06/14/17 09:00 07/14/17 08:59 06/18/17 07:22 100 MG Levalbuterol (Xopenex 1.25MG/ 3ML Neb) 1.25 mg Q4H PRN INH 06/14/17 01:45 07/14/17 01:44 Hydralazine HCl (HydrALAZINE INJ) 10 mg Q6 PRN IV. 06/14/17 15:45 07/14/17 15:44 06/15/17 15:30 10 MG Carvedilol (Coreg Tab) 12.5 mg BID PO 06/14/17 21:00 07/14/17 20:59 06/18/17 07:22 12.5 MG Clopidogrel Bisulfate (plAVix TAB) 75 mg QAM PO 06/15/17 09:00 07/15/17 08:59 06/18/17 07:21 75 MG Divalproex Sodium (Depakote Extended Rel Tab) 500 mg DAILY PO 06/15/17 11:00 07/15/17 10:59 06/18/17 07:23 500 MG Gadobutrol (Gadavist) 6 mmol UD PRN IV 06/16/17 11:45 06/20/17 11:44 Impression (1) Hyponatremia (2) Hypokalemia (3) Hypertensive emergency (4) Altered mental status Sangeeta Is a 71-year-old female admitted to the hospital with altered mental status and hypertensive emergency. Blood pressure currently improved and systolic blood pressure staying around 150s to 160s. Currently on p.r.n. hydralazine. 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 She developed to acute hyponatremia, serum sodium dropped to 121, urine osmolality was above 300. Had significant hypokalemia serum sodium serum potassium dropped to 2.8, TT kg was 3.5 suggestive possible GI loss with ongoing diarrhea. Hyponatremia possibly multifactorial, there is evidence of inappropriately high ADH and some contribution from decreased free water clearance with low solute load possibly from chronic alcohol intake. Mental status change may not be directly related to hyponatremia as she presented with change in mental status when her electrolytes were normal. Has history of chronic hyponatremia. Recommendations --serum sodium normalized and over last 48 hours staying stable around 133-137 --monitor serum sodium daily while in patient and then at least weekly for few weeks. encourage adequate p.o. intake --will sign off
[2017-06-18] MEDS ORDERED: PLV75 PO (10:21)
[2017-06-18] MEDS ORDERED: DPKSR500 PO ×2 (10:21→10:37)
[2017-06-18] MEDS ORDERED: CRG125 PO (10:37)
[2017-06-18] MEDS ORDERED: CLOP1TAB5 PO (10:37)
[2017-06-18] MEDS ORDERED: LPT40 PO (10:37)
--- NOTE | 2017-06-18 10:46 | Discharge Instructions ---
Discharge Instructions Date of Service Jun 18, 2017. Admission Reason for Admission: Altered Mental Status, Hypertensive Urgency Discharge Discharge Diagnosis / Problem: Altered mental status, hyponatremia, hypertension Discharge Goals Goal(s): Improve function, Diagnostic testing, Prevent Disease Progression Activity Recommendations Activity Limitations: per Instructions/Follow-up section . Instructions / Follow-Up Instructions / Follow-Up Please follow up with Dr. Anand in 2 weeks. You will need to phone her office to book an appointment. [phone] We will be prescribing you with 4 new medications. Please take these as prescribed. 1) Depakot - for seizure prophylaxis 2) Carvedilol - for blood pressure 3) Plavix - for stroke prevention 4) Statin - for plaque stabilization You will need to get blood work drawn tomorrow and it will be sent to Dr. Anand as well as Dr. Hayden Please refrain from any alcohol and caffeine consumption. Please drink plenty of fluids and eat a diet with many fruits and vegetables. Please eat yogurt daily. Please follow up with Dr. Hayden for further management of your diarrhea. If you have any change in mental status, worsening diarrhea, difficulty with speech, swallowing or limb weakness then please come back to the emergency room Current Hospital Diet Patient's current hospital diet: AHA Diet (Heart Healthy) Discharge Diet Recommended Diet: Regular Diet Pending Studies Studies pending at discharge: yes List of pending studies: Neurology antibodies - follow up with neurology Stool cultures and studies - follow up with PCP Laboratory Results Hemoglobin A1c Test 06/13/17 17:48 Range/Units Estimated Average Glucose 128 mg/dl Hemoglobin A1c 6.1 H 4.5-5.6 % Lipid Panel Test 06/14/17 06:23 Range/Units Triglycerides Level 82 0-150 mg/dl Cholesterol Level 291 H 0-200 mg/dl HDL Cholesterol 105 mg/dl Cholesterol/HDL Ratio 2.8 LDL Cholesterol, Calculated 170 mg/dl Medical Emergencies . Who to Call and When: Medical Emergencies: If at any time you feel your situation is an emergency, please call 911 immediately. . Non-Emergent Contact Non-Emergency issues call your: Primary Care Provider . . "Provider Documentation" section prepared by Bandar Garsia. . VTE Core Measure Inpt VTE Proph given/why not?: Unfractionated heparin SQ
--- NOTE | 2017-06-18 11:11 | Discharge Summary ---
Discharge Summary Date of Service Jun 18, 2017. (Bandar Garsia MD) Discharge Summary Admission Date: Jun 13, 2017 at 20:09 Discharge Date: Jun 18, 2017 Discharge Disposition: Home Principal Diagnosis: Altered mental status, hyponatremia, HTN Immunizations: Have You Had Influenza Vaccine: N/A Influenza Vaccine Date: Aug 11, 2010 History of Tetanus Vaccine?: Yes Tetanus Immunization Date: Mar 02, 2007 History of Pneumococcal: Yes Pneumococcal Date: Aug 01, 2007 History of Hepatitis B Vaccine: No Consultations: Neurology Nephrology Cardiology (Bandar Garsia MD) Medication Reconciliation New Medications: Clopidogrel Bisulfate (Plavix) 75 Mg Tab 1 TAB PO DAILY for 30 Days, #30 TAB 5 Refills Divalproex Sodium (Divalproex Sodium ER) 500 Mg Tabcr 500 MG PO DAILY for 14 Days, #14 TAB Atorvastatin (Atorvastatin Calcium) 40 Mg Tab 40 MG PO QAM for 14 Days, #14 TAB Carvedilol (Carvedilol) 12.5 Mg Tab 12.5 MG PO BID for 14 Days, #28 TAB Continued Medications: Albuterol Hfa (Ventolin Hfa) 200 Puffs/12385 Mcg Aers 2 PUFFS INH Q4H PRN for Cough/SOB/Wheezing Calcium Carbonate-Cholecalcife (Calcium 600 + D 600-200 mg-Unit) 1 Tab Tab 1 TAB PO BID Clonazepam (Clonazepam) 0.5 Mg Tab 0.5 MG PO TID PRN for Anxiety Epinephrine (Epipen) 0.3 Mg/0.3 Ml Inj 0.3 MG IM UD PRN for ALLERGIC REACTION, BOX FOR LIFE THREATENING ALLERGY Immune Globulin (Human) Subcut (Hizentra) 4 Gm/20 Ml Inj 1 DOSE SQ WK Labetalol HCl (Labetalol HCl) 100 Mg Tab 50 MG PO BID Levalbuterol (Levalbuterol HCl) 1.25 Mg/3 Ml Nebu 1.25 MG NEB Q4H Losartan Potassium (Cozaar) 100 Mg Tab 100 MG PO DAILY Multivitamins/Minerals (Mvi With Minerals) Tab 1 TAB PO DAILY, TAB Potassium Chloride Microencaps (Potassium Chloride Er) 20 Meq Tab 20 MEQ PO DAILY Triamterene/Hctz (Dyazide 37.5MG/25MG) Cap 1 CAP PO DAILY, CAP Venlafaxine Hcl (Venlafaxine Extended Rel) 37.5 Mg Cap 37.5 MG PO DAILY Zolpidem Tartrate (Zolpidem Tartrate) 10 Mg Tab 10 MG PO HS PRN for Sleep Discontinued Medications: Aspirin (Aspirin Ec) 81 Mg Tab 81 MG PO DAILY Discharge Exam Patient with not acute issues overnight No longer having any diarrhea, no longer having any change in mental status Will be following up with Dr. Hayden and Dr. Seaman as outpatient Review of Systems: Constitutional: + fatigue, No fever, No chills Cardiovascular: No chest pain, No edema, No palpitations Abdomen: No pain, No nausea, No vomiting, No diarrhea, No constipation Musculoskeletal: No joint pain Neurologic: No memory loss, No paralysis, No weakness, No numbness/tingling , No vertigo Hematologic / Lymphatic: No abnormal bleeding/bruising, No clotting problems Integumentary: No rash, No itch, No new/changing skin lesions Physical Exam: General Appearance: WD/WN, no apparent distress ENT: hearing grossly normal, pharynx normal Respiratory/Chest: lungs clear, no respiratory distress, no accessory muscle use Cardiovascular: regular rate, rhythm, normal peripheral pulses, + systolic murmur (2/6 at RUSB) Abdomen / GI: normal bowel sounds, non tender, soft Extremities: no calf tenderness, no pedal edema, non-tender Neurologic/Psychiatric: brush maker machine II-XII nml as tested, no motor/sensory deficits , normal mood/affect, oriented x 3 Skin: normal color, warm/dry, no rash (Bandar Garsia MD) denies any complains. at bedside. Review of Systems: Constitutional: No fever Respiratory: No shortness of breath Cardiovascular: No chest pain Abdomen: No pain Physical Exam: General Appearance: no apparent distress Respiratory/Chest: lungs clear, no respiratory distress Cardiovascular: regular rate, rhythm Abdomen / GI: normal bowel sounds, non tender, soft Neurologic/Psychiatric: no motor/sensory deficits, alert, oriented x 3 Skin: warm/dry (Peg Mejía M.D.) Hospital Course 71 y/o F with h/o of HTN, CVA, HPL, severe asthma, anx/depression who presented with n/v + confusion, found to be in HTN urgency. Initially treated with nicardipine that seemed to reduce her pressures adequately. She was then transitioned to home meds which did not completely control her pressures. She was again transitioned to carvedilol, hydralazine IV PRN and maintained on Cozaar (home med). She underwent an LP 06/14/17 after which she started showing worsening AMS/ confusion and hallucinations. She was started on Alcohol withdrawal protocol based on her AWSS and CIWA scores. This continued to wax and wane into the night. Her pressures were also labile. This has shown improvement in the subsequent days with gradually improving responsiveness and fewer episodes of intermittent confusion/hallucinations. 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 While she is not presenting as a typical seizures, anti-convulsant was commenced and further serum and CSF evaluation initiated given her constellation of symptoms and LP negative for infectious etiology. Altered mental status, waxing/waning Differentials:? HTN encephalopathy vs. CVA (less likely, atypical?) vs. infectious etiology (ruled out) vs. hyponatremia vs limbic encephalitis vs. paraneoplastic syndromes vs. autoimmune conditions Reviewed Imaging: Brain MRI: Abnormality in left hippocampus atypical for ischemia, ? herpes encephalitis vs limbic encephalitis vs. seizure Head MRA- stenosis of [place]- distal right Vertebral artery Neck MRA- normal carotids Head CT- Negative LP under fluoroscopy- negative csf anaylsis EEG concerning for epileptiform activity - started on Depakote 500 mg Repeat MRI with contrast report unchanged from previous Voltage gated potassium channel antibody, anti- hu , anti-nmda (serum and CSF) sent out and pending Continue Plavix 75 mg and atorvastatin 40mg Mentation imrproved. High suspicion related to alcohol, but will await send out lab results. - WILL SEND DEPAKOTE LABS TO BE DRAWN DAY AFTER DISCHARGE AND SENT TO PCP AND NEUROLOGY - F/U WITH NEUROLOGY IN 2 WEEKS - START STATIN AND PLAVIX FOR CVS PROTECTION Hyponatremia, worsening Initially noted to drop to 125 from 130. Unsure of what % of this contributed to her AMS given that on admission her Na was 134 and she had similar symptoms Fluids changed from 1/2 NS to NSS, with boluses of hypertonic saline/D5 as appropriate. Repeat BMP scheduled q6h previously, showed stabilized sodium. IVF discontinued, and PO intake encouraged. - SODIUM 136 AT DISCHARGE Chronic diarrhea C.diff toxin negative, Other stool studies pending: leukocytes, culture, O&P, Giardia. - STUDIES PENDING AT DISCHARGE AND DIARRHEA RESOLVED - ENCOURAGED PROBIOTIC INTAKE AND FOLLOW UP WITH PCP HTN urgency (possibly related to alcohol) Improved with Nicardipine initially Currently on Hydralazine, Cozaar, Carvedilol Cardiology consulted, appreciate recs Echo- EF of 55-60%, mild AR, grade 1 Diastolic dysf. no pulm HTN, trace effusion - DISCHARGED WITH ADDITION OF CARVEDILOL, BP WELL CONTROLLED Alcohol withdrawal Banana bag, Librium Tachycardia likely 2/2 to anxiety/withdrawal - resolved Improved during stay Glucose intolerance A1c of 6.1 Depending on how long she has been prediabetic and her willingness to correct with lifestyle changes May discuss starting pharmacologic glycemic control Sleep apnea: Encourage consistent use of CPAP machine at home Also maybe contributing to HTN and risk of CVA Ordered CPAP for use in hospital Memory loss (pre-existing) Neuropsych testing scheduled this Sunday Family history of Alzheimer/dementia Anxiety /depression Continue venlafaxine and clonazepam Asthma, stable Total Time Spent: Less than 30 minutes This includes examination of the patient, discharge planning, medication reconciliation, and communication with other providers. (Bandar Garsia MD) Resident Physician Supervision Note: I was present with Dr. Arambula in bedside. I verified the harris history and physical, reviewed labs and image studies, discussed the case with the resident and agree with the findings and care plan. Total Time Spent: Greater than 30 minutes (40) (Peg Mejía M.D.) Discharge Instructions Please refer to the electronic Patient Visit Report (Discharge Instructions) for additional information. (Bandar Garsia MD) Additional Copies To Latonya Seaman D.O.; Earl Chan M.D.; Jeri Hayden MD
[2017-06-18 11:17] VITALS: BP 115/64; PULSE 74; TEMP 37.1; O2SAT 99
[2017-06-27 08:16] LABS: O&P GIARDIA AG NOT DETECTED (NOT DETECTED); O&P SOURCE OTHER-STOOL
== END 2017-06-18 11:45 | disposition home or self-care (01) | DRG 98 ==
LOC: EDBD 17:28 → C.EDB 17:30 → C.2E 20:09 → ENRESERV 20:21
PROVIDERS: ADMIT Internal Medicine; ATTEND Family Medicine
PROC: 009U3ZX Drainage of Spinal Canal, Percutaneous Approach, Diagnostic (ICD-10-PCS; principal; 2017-06-14)
DX: G04.90 Encephalitis and encephalomyelitis, unspecified (principal); I67.4 Hypertensive encephalopathy; E87.1 Hypo-osmolality and hyponatremia; F10.239 Alcohol dependence with withdrawal, unspecified; I16.0 Hypertensive urgency; I10 Essential (primary) hypertension; K52.9 Noninfective gastroenteritis and colitis, unspecified; E87.6 Hypokalemia; R00.0 Tachycardia, unspecified; R73.03 Prediabetes; I25.10 Atherosclerotic heart disease of native coronary artery without angina pectoris; E78.5 Hyperlipidemia, unspecified; J45.909 Unspecified asthma, uncomplicated; G89.29 Other chronic pain; M54.2 Cervicalgia; M54.5 Low back pain; G25.0 Essential tremor; F03.90 Unspecified dementia, unspecified severity, without behavioral disturbance, psychotic disturbance, mood disturbance, and anxiety; F41.9 Anxiety disorder, unspecified; F32.9 Major depressive disorder, single episode, unspecified; G47.30 Sleep apnea, unspecified; Z91.19 Patient's noncompliance with other medical treatment and regimen; Z86.73 Personal history of transient ischemic attack (TIA), and cerebral infarction without residual deficits; Z87.891 Personal history of nicotine dependence; Z79.82 Long term (current) use of aspirin; Z79.899 Other long term (current) drug therapy

== ENCOUNTER → 2017-06-19 | Outpatient (CLI) | payer OTHER ==
[~2017-06-19] MED LIST changes: -ADVIN50/60 INH; -ASPI81TA28 PO; -ATOR-54 PO; +CALC-452 PO; -CALC-51 PO; -CLON0.5T3 PO; +CLOP1TAB5 PO; +CRG125 PO; +DPKSR500 PO; -EFF75 PO; +IMMU4INJ SQ; -IVIG SC; +KLN5X PO; -LEVA1.255; +LOSA100T65 PO; -LOSA1TAB38 PO; +LPT40 PO; -MOME6000; -MONT1TAB3 PO; -OMEP20CA9 PO; -PHEN-601 PO; -PLMINSR5 INH; +POTA20TA13 PO; -POTA20TA16 PO; +VENL37.593 PO; +VNTHFA/IN INH; +XPNINS125 NEB; -ZOLP10TA PO; +ZOLP10TA6 PO
== END | disposition home or self-care (01) ==
LOC: C.LAB 12:16
PROVIDERS: ATTEND Student in an Organized Health Care Education/Training Program
DX: Z51.81 Encounter for therapeutic drug level monitoring (principal); Z79.899 Other long term (current) drug therapy

== ENCOUNTER → 2017-07-02 | Outpatient (CLI) | payer OTHER ==
[2017-07-02 10:01] LABS: BLOOD UREA NITROGEN 10 mg/dl (7-18); BUN/CREATININE RATIO 11.7 (10-20); CALCIUM 9.1 mg/dl (8.5-10.1); CARBON DIOXIDE 30 mmol/L (21-32); CHLORIDE 95 mmol/L (98-107); CREATININE 0.87 mg/dl (0.60-1.20); GLUCOSE 89 mg/dl (70-99); MAGNESIUM 2.2 mg/dl (1.8-2.4); SODIUM 131 mmol/L (136-145)
== END | disposition home or self-care (01) ==
LOC: C.LAB 07:33
PROVIDERS: ATTEND Family Medicine
DX: E87.1 Hypo-osmolality and hyponatremia (principal); R26.89 Other abnormalities of gait and mobility

== ENCOUNTER → 2017-07-10 | Outpatient (CLI) | payer OTHER ==
[2017-07-10 15:36] LABS: BASO ABS # 0.05 K/uL (0-0.2); COMPLETE YES; EOS % 5.2 %; HEMATOCRIT 28.6 % (37-47); IG% 0.2 %; LYMPH ABS # 1.34 K/uL (1.2-3.4); MEAN CELL VOLUME 89.4 fL (80-100); MEAN CORPUSCULAR HEMOGLOBIN 32.5 pg (25-34); MEAN CORPUSCULAR HGB CONC 36.4 g/dl (32-36); MEAN PLATELET VOLUME 8.4 fL (7.4-10.4); MONO % 10.7 %; NEUT % 54.9 %; PLATELET COUNT 216 K/uL (130-400); WHITE BLOOD COUNT 4.78 K/uL (4.8-10.8)
[2017-07-10 15:44] LABS: PARTIAL THROMBOPLASTIN RATIO 1.2; PROTHROMBIN TIME (PATIENT) 10.6 SECONDS (9.0-12.0)
[2017-07-10 16:08] LABS: ALT/SGPT 19 U/L (12-78); AST/SGOT 23 U/L (15-37); BLOOD UREA NITROGEN 12 mg/dl (7-18); BUN/CREATININE RATIO 15.3 (10-20); CALCIUM 8.5 mg/dl (8.5-10.1); CARBON DIOXIDE 27 mmol/L (21-32); CHLORIDE 89 mmol/L (98-107); CREATININE 0.78 mg/dl (0.60-1.20); GLUCOSE 85 mg/dl (70-99); POTASSIUM 4.1 mmol/L (3.5-5.1); SODIUM 124 mmol/L (136-145)
[2017-07-10 16:11] LABS: ALKALINE PHOSPHATASE 57 U/L (45-117); PHOSPHORUS 3.6 mg/dl (2.5-4.9)
== END | disposition home or self-care (01) ==
LOC: C.LAB1850 14:14
PROVIDERS: ATTEND Internal Medicine Nephrology
DX: R06.02 Shortness of breath (principal); G40.909 Epilepsy, unspecified, not intractable, without status epilepticus; E87.1 Hypo-osmolality and hyponatremia

== ENCOUNTER → 2017-07-12 | Outpatient (CLI) | payer OTHER ==
[~2017-07-12] MED LIST changes: +GADAVIST IV PRN
--- NOTE | 2017-07-12 08:36 | DIAGNOSTIC IMAGING REPORT ---
MRI OF THE BRAIN WITHOUT AND WITH IV CONTRAST CLINICAL HISTORY: G93.40 Encephalopathy one month followup, compare to previous 06/16/2017 COMPARISON STUDY: 06/16/2017 TECHNIQUE: MRI of the brain was performed from the vertex to the skull base utilizing various T1 and T2 weighted sequences. Following the IV administration of 5.9 mL of Gadavist contrast, additional enhanced images were obtained. FINDINGS: Sagittal T1, axial diffusion, proton density and T2 weighted axial, coronal FLAIR, and pre and post axial T1-weighted images were acquired. These were supplemented with post gadolinium coronal T1 weighted images. Axial diffusion-weighted images reveal resolving restricted water diffusion in the left hippocampal region. There is no evidence of ventricular dilatation. Proton density T2-weighted and FLAIR images reveal there is persistent increased FLAIR signal within the left hippocampus. There are no abnormal flow voids. There is no evidence of pathologic enhancement. IMPRESSION: 1. Persistent focus of increased FLAIR signal within the left hippocampus. There is decreasing reticular water diffusion in this area as compared with the preceding study. There is no pathologic enhancement. 2. The examination remains otherwise unchanged the preceding study. There is no evidence of acute or subacute infarction. There are no pathologically enhancing lesions. Electronically signed by: Olvin Gabriel M.D. 07/12/2017 8:34 AM Dictated Date/Time: 07/12/2017 8:27 AM
[2017-07-12 09:56] LABS: BLOOD UREA NITROGEN 14 mg/dl (7-18); BUN/CREATININE RATIO 17.5 (10-20); CALCIUM 8.5 mg/dl (8.5-10.1); CARBON DIOXIDE 29 mmol/L (21-32); CHLORIDE 98 mmol/L (98-107); CREATININE 0.82 mg/dl (0.60-1.20); GLUCOSE 91 mg/dl (70-99); PHOSPHORUS 3.3 mg/dl (2.5-4.9); POTASSIUM 4.1 mmol/L (3.5-5.1); SODIUM 133 mmol/L (136-145)
== END | disposition home or self-care (01) ==
LOC: C.MRI 07:16
PROVIDERS: ATTEND Physician Assistant
DX: G93.40 Encephalopathy, unspecified (principal); E87.1 Hypo-osmolality and hyponatremia

== ENCOUNTER → 2017-07-19 | Outpatient (CLI) | payer OTHER ==
[~2017-07-19] MED LIST changes: +ATOR-24 PO; +BENZ100C7 PO; +CARV12.5 PO; +CLB/200 PO; +CLOP1TAB15 PO; +DPKSR/250 PO; +DPKSR/500 PO; -GADAVIST IV PRN; +MAGNESIUM POTASSIUM PO; +NAPR1TAB9 PO; +PRED10TA PO; +SODI1TAB PO
[2017-07-19 09:56] LABS: BLOOD UREA NITROGEN 12 mg/dl (7-18); BUN/CREATININE RATIO 14.4 (10-20); CALCIUM 9.3 mg/dl (8.5-10.1); CARBON DIOXIDE 29 mmol/L (21-32); CHLORIDE 103 mmol/L (98-107); CREATININE 0.84 mg/dl (0.60-1.20); GLUCOSE 75 mg/dl (70-99); SODIUM 137 mmol/L (136-145)
[2017-07-19 09:57] LABS: PHOSPHORUS 3.6 mg/dl (2.5-4.9)
[2017-07-25 01:27] LABS: IGA SERUM 76 mg/dL (81-463); TIS TRANS IGA 1 U/mL (<4)
== END | disposition home or self-care (01) ==
LOC: C.LAB 08:14
PROVIDERS: ATTEND Internal Medicine
DX: K52.9 Noninfective gastroenteritis and colitis, unspecified (principal); E87.1 Hypo-osmolality and hyponatremia

== ENCOUNTER → 2017-07-20 | Day surgery (SDC) | payer OTHER ==
--- NOTE | 2017-07-19 10:19 | HISTORY & PHYSICAL EXAMINATION ---
DATE OF ADMISSION: 07/20/2017 REASON FOR BRONCHOSCOPY: Cough. HISTORY OF PRESENT ILLNESS: This is a 71-year-old female seen in the outpatient office with acute symptoms of shortness of breath and productive cough. Relevant past medical history includes severe persistent asthma, nocturnal CPAP, history of sinusitis status post surgery, allergic rhinitis, coronary artery disease status post myocardial infarction,? CVA on clopidogrel, hypoglobulinemia, hyponatremia, and history of daily alcohol. She does have a remote 5 pack year history of smoking with some secondhand exposure. The patient has a longstanding history followed in the outpatient office for severe persistent asthma. She struggles from childhood with episodes of recurrent bronchitis. Triggers include allergies, weather changes, and upper respiratory infections. She did undergo immunotherapy at one point as well as Xolair without improvement. In the mid 1999s, frequency of exacerbation increased. She was diagnosed with variable immune deficiency for which she was evaluated at [facility] and Hizentra was initiated. From [id number], she was admitted on multiple occasions at least 2 times per year with exacerbation and underwent several bronchoscopies. 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 07/2014 procedure notable for lavage of mucus plugging. 08/2014, 08/2014, and 10/2014, she underwent bronchial thermoplasty with subsequent improvement postprocedure. For the past 2-3 months patient reported increased symptoms related to her GI system which includes frequent loose stools. She had been seen by GI for this (upper and lower GI study is pending). More recently, she was admitted to [facility], 06/13/2017-06/18/2017 with hypertensive urgency, altered mental status and hyponatremia. Workup included an echocardiogram (grade 1 diastolic dysfunction) with PEF. C. diff PCR was negative. 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 She is being referred to outpatient facility [facility] for further workup and care. Of note, while inpatient, she did require care for alcohol withdrawal. More recently, patient developed symptoms of progressive cough with copious amounts of brown sputum. She reports associated dyspnea and wheeze which is worse in the mornings. She did contact the office and has subsequently completed a course of clindamycin without any relief in her symptoms. In the outpatient office when she was evaluated she continued to describe cough and progressive dyspnea, fatigue, and wheeze. These symptoms persisted despite previous course of antibiotic as well as frequent use of her nebulizer 3-4 times daily. Of note, her nebulizers is palliative however, not completely and limited in symptom reduction. She denied any associated fevers, chills, or frequent aspiration, recent travel, but does continue to report cognitive and memory dysfunction. PAST MEDICAL HISTORY: 1. Sinusitis. 2. Alcohol consumption - heavy. 3. Arthralgias, multiple sites. 4. Severe persistent asthma. 5. Chronic cerebral ischemia. 6. Chronic sinusitis. 7. History of encephalopathy. 8. Gastroenteritis. 9. Hypertension. 10. History of Helicobacter pylori infection. 11. Hyponatremia. 12. Insomnia. 13. IBS. 14. Obstructive sleep apnea. 15. History of myocardial infarction. PAST SURGICAL HISTORY: 1. Bronchoscopy with bronchial thermoplasty. 2. Bronchoscopy, fiberoptic lavage. 3. Dilation and curettage. 4. History of breast surgery for biopsy. 5. History of sinus surgery. FAMILY HISTORY: 1. Emphysema. 2. Hypertension. 3. Gallbladder disease. 4. Breast cancer. SOCIAL HISTORY: 1. Daily alcohol consumption -- heavy. 2. Former tobacco use. 3. The patient is . 4. The patient denies illicit drug use. 5. The patient is retired. CURRENT MEDICATIONS: 1. Celecoxib 200 mg oral capsule: Take 1 capsule daily. 2.. Budesonide 0.5 per 2 mL inhalation suspension: Inhale 1 vial twice daily. 3. Clindamycin 300 mg oral capsule: Take 1 capsule every 6 hours daily. 4. Clonazepam 0.5 mg oral tablet: Take 1 tablet 3 times daily as needed. 5. Levalbuterol hydrochloride 1.25 per 3 mL inhalation nebulizer solution: Inhale 1 vial q. 4 hours as needed. 5. Ventolin HFA 108 mcg/ACT inhalation solution: Inhale 2 puffs every 4 hours as needed. 6. Gentamicin and saline 0.8-0.9 mg per mL percent IV solution: 60 mg and 45 mL nasal solution 2 sprays each nostril 3 times daily. 7. Nasonex 50 microgram/ACT nasal suspension: Use 2 sprays each nostril 1 times daily. 8. Venlafaxine hydrochloride ER 37.5 mg oral capsule: Take 1 capsule daily. 9. Atorvastatin calcium 40 mg oral tablet: Take 1 tablet by mouth daily. 10. Carvedilol 12.5 mg oral tablet: Take 1 tablet twice daily. 11. Labetalol hydrochloride 100 mg oral tablet: Take 1/2 tablet twice daily. 12. Klor-Con 20 mEq oral tablet extended release: Take 1 tablet daily. 13. Sodium chloride 1 gram oral tablet: Take 1 tablet twice daily. 14. Zolpidem tartrate 5 mg oral tablet: Take 1 tablet at bedtime as needed for insomnia. 15. Divalproex sodium ER 250 mg oral tablet extended release: Take 1 tablet daily for a total of 750 mg daily. 16. Divalproex sodium ER 500 mg oral tablet extended release: Take 1 tablet daily. 17. Calcium 600 mg oral tablet: Take 1 tablet twice daily. 18. Clopidogrel bisulfate 75 mg oral tablet: Take 1 tablet daily. 19. EpiPen 0.3 mg per 3 mL device, use as directed. 20. Multivitamin: Take 1 tablet daily. ALLERGIES: 1. LEVAQUIN. 2. AUGMENTIN. 3. AVELOX. 4. DOXYCYCLINE. 5. CLARITHROMYCIN. PHYSICAL EXAMINATION: VITAL SIGNS: Weight 125 pounds, temperature 98.2 degrees Fahrenheit oral, blood pressure 122/68, heart rate 82 beats per minute, oxygen saturation 97% on room air. CONSTITUTIONAL: Well-developed, well-nourished female. No acute distress. HEAD: Facial symmetry. EYES: EOMI, PERRLA, no conjunctival injection. MOUTH: No erythema or exudate, or postnasal drip. NECK: Trachea midline without adenopathy or masses. RESPIRATORY: Nonlabored respirations. Decreased air movement with diffuse bilateral rhonchi and wheeze bilaterally. CARDIOVASCULAR: Regular rate and rhythm. No murmurs or gallops. +2 radial pulses bilaterally. Less than 1 second capillary refill distally. MUSCULOSKELETAL AND EXTREMITIES: Moving and developed symmetrically. No peripheral edema. No calf tenderness. NEUROLOGIC: Alert and oriented with data recall intact. Appropriate affect. REVIEW OF SYSTEMS: CONSTITUTIONAL: Positive for fatigue without fevers or chills. EYES: Negative. ENT: Positive for nasal discharge, but as noted in HPI. No otalgia, pharyngitis or vocal hoarseness. CARDIOVASCULAR: Denies chest pain, palpitations, or peripheral edema. RESPIRATORY: Positive for dyspnea, cough, wheeze, and dyspnea on exertion. GASTROINTESTINAL: Positive for diarrhea, but negative otherwise. INTEGUMENTARY: Negative. NEUROLOGIC: Positive for confusion and memory loss. HEMATOLOGIC AND LYMPHATIC: Denies lymphadenopathy. DISCUSSION SUMMARY AND PLAN: This 71-year-old female seen in the outpatient office for persistent and progressive symptoms of productive cough, dyspnea, and wheeze. Her physical exam is impressive. Symptoms progressed despite recent courses of antibiotic and her history is notable for recent confinement. Her case is complicated by underlying metabolic dysfunction. I would be hesitant to repeat antibiotic with risk of inducing further GI dysfunction and fluid imbalance. She has a great deal of allergies as well as history of mucoid impaction in the past. Case discussed with Dr. Chan and patient is scheduled for outpatient bronchoscopy with appropriate preprocedural blood work this week. He should hold her Plavix and follow up in the office post-procedure. ARMANI
[2017-07-20] VITALS (13 sets, daily range): BP systolic 158–208; BP diastolic 67–139; PULSE 57–101; TEMP 36.4–36.9; O2SAT 93–100; Ht 154.9 cm; Wt 57.0 kg
[~2017-07-20] VITALS: Ht 154.9 cm; Wt 57.0 kg
[~2017-07-20] MED LIST changes: +FENTANYL CITRATE 100 MCG 2 ML CARP IV ONE; +FENTANYL CITRATE INJ 50 MCG/1 ML 2 ML VIAL IV ONE; +IPRATROPIUM BROMIDE NEB SOLN 0.02% 2.5 ML VIAL INH ONE; +LEVALBUTEROL 1.25MG/3ML NEB INH ONE; +MIDAZOLAM HCL 5 MG/ML 1 ML VIAL IV ONE; +NURSING VERBAL MED ORDER ONE
--- NOTE | 2017-07-20 08:13 | Procedure Note ---
Pre-Mod Sedation Assessment General Date of Moderate Sedation: Jul 20, 2017. Pre-Sedation Airway Assessment Smoking Status: Former Smoker Mallampati Classification: Class II ASA Classification: Class II Notes The planned sedation has been discussed with the patient and consent obtained. I have identified the patient, determined the appropriateness of sedation and have assessed the patient immediately prior to the procedure. All medicine(s) and interventions are by my order.
--- NOTE | 2017-07-20 11:42 | Discharge Instructions ---
Discharge Instructions Date of Service Jul 20, 2017. Admission Reason for Admission: Asthma, Cough Discharge Discharge Diagnosis / Problem: Chronic Mucopurulent Bronchitis Discharge Goals Goal(s): Diagnostic testing, Therapeutic intervention Activity Recommendations Activity Limitations: resume your previous activity Lifting Limitations: none Exercise/Sports Limitations: none May Resume Sexual Activity: when tolerated Shower/Bathe: no limitations Driving or Machine Use: resume 1 day after discharge None . Current Hospital Diet Patient's current hospital diet: Discharge Diet Recommended Diet: Regular Diet Fluid Restriction: None Pending Studies Studies pending at discharge: no Laboratory Results Hemoglobin A1c Test 06/13/17 17:48 Range/Units Estimated Average Glucose 128 mg/dl Hemoglobin A1c 6.1 H 4.5-5.6 % Lipid Panel Test 06/14/17 06:23 Range/Units Triglycerides Level 82 0-150 mg/dl Cholesterol Level 291 H 0-200 mg/dl HDL Cholesterol 105 mg/dl Cholesterol/HDL Ratio 2.8 LDL Cholesterol, Calculated 170 mg/dl Medical Emergencies . Who to Call and When: Medical Emergencies: If at any time you feel your situation is an emergency, please call 911 immediately. . Non-Emergent Contact Non-Emergency issues call your: Slicing Machine Operator Call Non-Emergent contact if: temperature is above 101 . . "Provider Documentation" section prepared by Earl Chan. . VTE Core Measure Inpt VTE Proph given/why not?: Treatment not indicated (Fluid restriction as previously determined)
--- NOTE | 2017-07-20 12:46 | OPERATIVE REPORT ---
DATE OF OPERATION: 07/20/2017 PROCEDURE: Fiberoptic bronchoscopy with bronchoalveolar lavage. INDICATIONS: Persistent cough refractory to outpatient therapy. ANESTHESIA PREOPERATIVELY: None. ANESTHESIA DURING THE PROCEDURE: 4 mg of IV Versed, 50 mcg of fentanyl IV, 20 mL of 2% Xylocaine spray above and below the cords, and 4% viscous Xylocaine intranasally. DESCRIPTION OF PROCEDURE: Fiberoptic bronchoscope was inserted into the right naris with minimal difficulty and passed to the level of the true vocal cords. The cords appeared to approximate normally with phonation without evidence of lesions or paralysis. The scope was passed through the cords and these areas of nodular densities that appeared to be part of the proximal trachea on the left lateral and anterior lay were noted. These appear to be calcified areas of cartilage. No biopsies were attempted. The scope was then passed to the rohan, which was sharp in the right and left tracheobronchial tree. The left main stem bronchus was explored initially and no endobronchial lesions were seen. Left upper lobe, the apical posterior, anterior segments, lingular subdivision and all basilar segments of the left lower lobe were found to be free of endobronchial lesions. Mucus pitting with bronchial crypts and clefts were noted and a moderate amount of mucopurulent secretion was lavaged from left lower lobe until clear. The right tracheobronchial tree was then explored and no endobronchial lesion was seen. The right upper lobe, the apical posterior, anterior segments, bronchus intermedius, right middle lobe with the medial and lateral segments and all basilar segments of the right lower lobe were found to be free of endobronchial lesions. A moderate degree of global inflammatory mucosal change was seen throughout the right tracheobronchial tree and once again, bronchial crypts and clefts were seen throughout the right tracheobronchial tree. There was evidence for significant mucoid impaction and mucus plugging involving all of the basilar segments of the right lower lobe. These areas were copiously lavaged with normosol and the aspirate sent for appropriate studies. No brushings or biopsies were deemed necessary. The procedure was terminated. The patient was given a nebulizer treatment with Xopenex 1.25 mg and transferred to the medical treatment unit hemodynamically stable with no signs of respiratory compromise. We will await microbiological and cytologic examination of the bronchial washings. I attest to the content of the Intraoperative Record and any orders documented therein. Any exception s are noted below.
== END | disposition home or self-care (01) ==
LOC: C.ACU 09:46
PROVIDERS: ATTEND Internal Medicine Pulmonary Disease
DX: R05 Cough (principal); R06.02 Shortness of breath; J45.909 Unspecified asthma, uncomplicated; I25.10 Atherosclerotic heart disease of native coronary artery without angina pectoris; I25.2 Old myocardial infarction; Z87.891 Personal history of nicotine dependence; G47.33 Obstructive sleep apnea (adult) (pediatric); I10 Essential (primary) hypertension; Z98.890 Other specified postprocedural states; Z88.1 Allergy status to other antibiotic agents; Z82.49 Family history of ischemic heart disease and other diseases of the circulatory system; Z80.3 Family history of malignant neoplasm of breast; Z82.5 Family history of asthma and other chronic lower respiratory diseases; Z83.79 Family history of other diseases of the digestive system

== ENCOUNTER → 2017-07-30 | Day surgery (SDC) | payer OTHER ==
[2017-07-19 10:09] VITALS: Ht 154.9 cm; Wt 56.8 kg
[~2017-07-30] VITALS: Ht 154.9 cm; Wt 56.8 kg
[~2017-07-30] MED LIST changes: +ATROPINE SULFATE 0.1 MG/ML 5ML SYR IV PRN; -CALC-452 PO; -CLOP1TAB5 PO; -CRG125 PO; -DPKSR500 PO; +EpHEDrine SULFATE INJ 50 MG/ML AMP IV PRN; -FENTANYL CITRATE 100 MCG 2 ML CARP IV ONE; -FENTANYL CITRATE INJ 50 MCG/1 ML 2 ML VIAL IV ONE; -IPRATROPIUM BROMIDE NEB SOLN 0.02% 2.5 ML VIAL INH ONE; -LBT100 PO; -LEVALBUTEROL 1.25MG/3ML NEB INH ONE; +LIDOCAINE HCL 2% 2 ML VIAL (20MG/ML) ONE; -LPT40 PO; -MIDAZOLAM HCL 5 MG/ML 1 ML VIAL IV ONE; -NURSING VERBAL MED ORDER ONE; +PROPOFOL IV EMULSION 10 MG/ML 20 ML VIAL IV ONE; +SODIUM CHLORIDE 0.9% 500ML 500 ML IV ONE; -TRIA37.5 PO; -ZOLP10TA6 PO
--- NOTE | 2017-07-30 09:50 | Endo History and Physical ---
History & Physical Date of Service: Jul 30, 2017. Chief Complaint: Diarrhea Referring Physician: Catracho History of Present Illness 71 yo CF who presents for colonoscopy secondary to diarrhea. Past Medical History Arthritis, Asthma, Anxiety, High Cholesterol, Hypertension, Chronic Steroid Use , DC Past Surgical History Hx Cardiac Surgery: Yes (HEART CATH ANGIOPLASTY) Hx Internal Defibrillator: No Hx Pacemaker: No Hx Abdominal Surgery: No Hx of Implantable Prosthesis: No Hx Post-Op Nausea and Vomiting: No Hx Cancer Surgery: No Hx Thoracic Surgery: Yes (BRONCHOSCOPIES) Hx Orthopedic: Yes (C4-6 FUSION (FULL ROM), LT FOOT HAMMER TOE, RT WRIST REPAIR ) Hx Urinary Tract Surgery: No Family History IBD Social History Smoking Status: Former Smoker Hx Substance Use: No Hx Alcohol Use: Yes (QUIT 5 WEEKS AGO; HX 1-2 DRINKS OCCASIONAL) Allergies Coded Allergies: Levofloxacin (Verified Allergy, Severe, ANAPHYLAXIS, 07/20/17) Quinolones (Verified Allergy, Severe, RASH, 07/20/17) Avelox and levaquin Molds and Smuts (Verified Allergy, Mild, SEASONAL ALLERGY SYMPTOMS, ) Amoxicillin (Verified Allergy, Unknown, Nausea, 07/20/17) Clavulanic Acid (Verified Allergy, Unknown, Nausea, 07/20/17) Moxifloxacin (Verified Allergy, Unknown, Nausea, 07/20/17) Doxycycline (Verified Adverse Reaction, Intermediate, nausea, 07/20/17) Erythromycin (Verified Adverse Reaction, Mild, N/V, 07/20/17) Current Medications Reported Home Medications Medications Dose Route/Sig Max Daily Dose Days Date Category Dose Instructions Benzonatate 100 Mg Cap 1 Tab PO TID PRN 07/20/17 Reported Aleve (Naproxen) 220 Mg Tab 220 Mg PO Q4H PRN 07/19/17 Reported [Magnesium Potassium] 250 Mg PO QPM 07/19/17 Reported Sodium Chloride 1 Gm Tab 1 Tab PO BID 07/19/17 Reported Coreg (Carvedilol) 12.5 Mg Tab 12.5 Mg PO BID 07/19/17 Reported Depakote Extended-Release (Divalproex Sodium) 250 Mg Tabcr 1 Tab PO QPM 07/19/17 Reported Depakote Etended-Release (Divalproex Sodium) 500 Mg Tabcr 1 Tab PO QPM 07/19/17 Reported Lipitor (Atorvastatin Calcium) 40 Mg Tab 40 Mg PO QAM 07/19/17 Reported CeleBREX (Celecoxib) 200 Mg Cap 200 Mg PO QPM 07/19/17 Reported Prednisone 10 Mg Tab 0 PO UD 07/19/17 Reported STERAPRED 10MG 12 DAY WILL BE COMPLETE 07-22-17 Plavix (Clopidogrel Bisulfate) 75 Mg Tab 75 Mg PO QPM 07/19/17 Reported Hizentra (Immune Globulin (Human) Subcut) 4 Gm/20 Ml Inj 1 Dose SQ WK 06/13/17 Reported Clonazepam 0.5 Mg Tab 0.5 Mg PO TID PRN 06/13/17 Reported Potassium Chloride Er (Potassium Chloride Microencaps) 20 Meq Tab 0.5 Tab PO BID 06/13/17 Reported Cozaar (Losartan Potassium) 100 Mg Tab 100 Mg PO QAM 06/13/17 Reported Ventolin Hfa (Albuterol) 200 Puffs/49903 Mcg Aers 2 Puffs INH Q4H PRN 06/13/17 Reported Venlafaxine Extended Rel (Venlafaxine Hcl) 37.5 Mg Cap 37.5 Mg PO QAM 06/13/17 Reported Levalbuterol HCl (Levalbuterol) 1.25 Mg/3 Ml Nebu 1.25 Mg NEB Q4H 06/13/17 Reported Mvi With Minerals (Multivitamins/Minerals) Tab 1 Tab PO QAM 01/05/17 Reported Epipen (Epinephrine) 0.3 Mg/0.3 Ml Inj 0.3 Mg IM UD PRN 01/05/17 Reported FOR LIFE THREATENING ALLERGY Vital Signs Weight (Kilograms): 56.82 Height (Feet): 5 Height (Inches): 1 Date Time Temp Pulse Resp B/P (MAP) Pulse Ox O2 Delivery O2 Flow Rate FiO2 07/30/17 09:47 36.4 75 16 174/87 (116) 99 Room Air Physical Exam General Appearance: WD/WN, no apparent distress Respiratory/Chest: Auscultation: breath sounds normal Cardiovascular: Heart Auscultation: RRR Abdomen: Bowel Sounds: normal Inspection & Palpation: soft, non-distended, no tenderness, guarding & rebound Assessment and Plan Assessment: 71 yo CF who presents for colonoscopy secondary to diarrhea. Plan: Proceed with colonoscopy.
--- NOTE | 2017-07-30 10:28 | Anesthesiology Progress Note ---
Anesthesia Post Op Note Date & Time Jul 30, 2017 at 10:28 Vital Signs Pain Intensity: 0 Vital Signs Past 12 Hours Date Time Temp Pulse Resp B/P (MAP) Pulse Ox O2 Delivery O2 Flow Rate FiO2 07/30/17 09:47 36.4 75 16 174/87 (116) 99 Room Air Notes Mental Status: alert / awake / arousable, participated in evaluation Pt Amnestic to Procedure: Yes Nausea / Vomiting: adequately controlled Pain: adequately controlled Airway Patency, RR, SpO2: stable & adequate BP & HR: stable & adequate Hydration State: stable & adequate Anesthetic Complications: no major complications apparent
--- NOTE | 2017-07-30 10:30 | GI REPORT ---
Procedure Date: 07/30/2017 9:40 AM Procedure: Colonoscopy Indications: Chronic diarrhea Medicines: Monitored Anesthesia Care Complications: No immediate complications. Estimated Blood Loss: Estimated blood loss: none. Procedure: Pre-Anesthesia Assessment: - Prior to the procedure, a History and Physical was performed, and patient medications and allergies were reviewed. The patient's tolerance of previous anesthesia was also reviewed. The risks and benefits of the procedure and the sedation options and risks were discussed with the patient. All questions were answered, and informed consent was obtained. Prior Anticoagulants: The patient has taken Plavix (clopidogrel), last dose was 1 day prior to procedure. ASA Grade Assessment: II - A patient with mild systemic disease. After reviewing the risks and benefits, the patient was deemed in satisfactory condition to undergo the procedure. After I obtained informed consent, the scope was passed under direct vision. Throughout the procedure, the patient's blood pressure, pulse, and oxygen saturations were monitored continuously. The scope was introduced through the anus and advanced to the terminal ileum. The colonoscopy was performed without difficulty. The patient tolerated the procedure well. The quality of the bowel preparation was good. The terminal ileum, ileocecal valve, appendiceal orifice, and rectum were photographed. Findings: A 4 mm polyp was found in the transverse colon. The polyp was sessile. The polyp was removed with a cold biopsy forceps. Resection and retrieval were complete. Multiple small-mouthed diverticula were found in the sigmoid colon. Non-bleeding internal hemorrhoids were found during retroflexion. The hemorrhoids were small. Several random biopsies were obtained with cold forceps for histology in the entire colon. Fluid aspiration for cytology was performed in the entire colon. Impression: - One 4 mm polyp in the transverse colon, removed with a cold biopsy forceps. Resected and retrieved. - Diverticulosis in the sigmoid colon. - Non-bleeding internal hemorrhoids. - Several random biopsies were obtained in the entire colon. - Fluid aspiration was performed. Recommendation: - Resume previous diet. - Continue present medications. - Repeat colonoscopy for surveillance based on pathology results. - Return to primary care physician as previously scheduled. Thor Brown DO 07/30/2017 10:27:34 AM This report has been signed electronically. Note Initiated On: 07/30/2017 9:40 AM I attest to the content of the Intraoperative Record and orders documented therein, exceptions below
[2017-07-30 10:57] VITALS: BP 159/79; PULSE 68; O2SAT 100
--- NOTE | 2017-07-30 10:59 | Discharge Instructions ---
Endoscopy Patient Instructions Date / Procedure(s) Performed Jul 30, 2017. Colonoscopy Allergy Information Coded Allergies: Levofloxacin (Verified Allergy, Severe, ANAPHYLAXIS, 07/20/17) Quinolones (Verified Allergy, Severe, RASH, 07/20/17) Avelox and levaquin Molds and Smuts (Verified Allergy, Mild, SEASONAL ALLERGY SYMPTOMS, ) Amoxicillin (Verified Allergy, Unknown, Nausea, 07/20/17) Clavulanic Acid (Verified Allergy, Unknown, Nausea, 07/20/17) Moxifloxacin (Verified Allergy, Unknown, Nausea, 07/20/17) Doxycycline (Verified Adverse Reaction, Intermediate, nausea, 07/20/17) Erythromycin (Verified Adverse Reaction, Mild, N/V, 07/20/17) Discharge Date / Findings Jul 30, 2017. Colon polyp Diverticulosis Internal hemorrhoids Random colon biopsies Stool aspirate collected Medication Instructions OK to resume all medications today as prescribed Reported Home Medications Medications Dose Route/Sig Max Daily Dose Days Date Category Dose Instructions Benzonatate 100 Mg Cap 1 Tab PO TID PRN 07/20/17 Reported Aleve (Naproxen) 220 Mg Tab 220 Mg PO Q4H PRN 07/19/17 Reported [Magnesium Potassium] 250 Mg PO QPM 07/19/17 Reported Sodium Chloride 1 Gm Tab 1 Tab PO BID 07/19/17 Reported Coreg (Carvedilol) 12.5 Mg Tab 12.5 Mg PO BID 07/19/17 Reported Depakote Extended-Release (Divalproex Sodium) 250 Mg Tabcr 1 Tab PO QPM 07/19/17 Reported Depakote Etended-Release (Divalproex Sodium) 500 Mg Tabcr 1 Tab PO QPM 07/19/17 Reported Lipitor (Atorvastatin Calcium) 40 Mg Tab 40 Mg PO QAM 07/19/17 Reported CeleBREX (Celecoxib) 200 Mg Cap 200 Mg PO QPM 07/19/17 Reported Prednisone 10 Mg Tab 0 PO UD 07/19/17 Reported STERAPRED 10MG 12 DAY WILL BE COMPLETE 07-22-17 Plavix (Clopidogrel Bisulfate) 75 Mg Tab 75 Mg PO QPM 07/19/17 Reported Hizentra (Immune Globulin (Human) Subcut) 4 Gm/20 Ml Inj 1 Dose SQ WK 06/13/17 Reported Clonazepam 0.5 Mg Tab 0.5 Mg PO TID PRN 06/13/17 Reported Potassium Chloride Er (Potassium Chloride Microencaps) 20 Meq Tab 0.5 Tab PO BID 06/13/17 Reported Cozaar (Losartan Potassium) 100 Mg Tab 100 Mg PO QAM 06/13/17 Reported Ventolin Hfa (Albuterol) 200 Puffs/54481 Mcg Aers 2 Puffs INH Q4H PRN 06/13/17 Reported Venlafaxine Extended Rel (Venlafaxine Hcl) 37.5 Mg Cap 37.5 Mg PO QAM 06/13/17 Reported Levalbuterol HCl (Levalbuterol) 1.25 Mg/3 Ml Nebu 1.25 Mg NEB Q4H 06/13/17 Reported Mvi With Minerals (Multivitamins/Minerals) Tab 1 Tab PO QAM 01/05/17 Reported Epipen (Epinephrine) 0.3 Mg/0.3 Ml Inj 0.3 Mg IM UD PRN 01/05/17 Reported [employer] [employer] Provider Instructions Activity Restrictions - No exercising or heavy lifting for 24 hours. - Do not drink alcohol the day of the procedure. - Do not drive a car or operate machinery until the day after the procedure. - Do not make any important decisions or sign important papers in 24 hours after the procedure. Following Day: - Return to full activity which may include returning to work/school. Diet Start your diet with liquids and light foods (jello, soup, juice, toast). Then eat your usual diet if not nauseated. Treatment For Common After Affects For mild abdominal pain, bloating, or excessive gas: - Rest - Eat lightly - Lie on right side Follow-Up Information Follow-up with [facility] as scheduled Anesthesia Information What You Should Know You have had a procedure that required some medicine to reduce anxiety and discomfort. This treatment is called moderate sedation. After receiving the treatment, you may be sleepy, but you will be able to breathe on your own. The effects of the treatment may last for several hours. Follow these instructions along with Activity/Diet recommendations noted above: * Do NOT do anything where dizziness or clumsiness would be dangerous. * Rest quietly at home today, then you can be up and about tomorrow. * Have a responsible person stay with you the rest of today. * You may have had an I.V. today. If so, you may take the dressing off later today. Recommendations Call your doctor if: * Trouble breathing * Continuous vomiting for more than 24 hours * Temperature above 101 degrees * Severe abdominal pain or bloating * Pain not relieved by pain medicine ordered * There is increased drainage or redness from any incision * A large amount of rectal bleeding greater than 2-3 tablespoons. (If you had a polyp/s removed or have hemorrhoids, a small amount of blood - from the rectum is to be expected.) * You have any unanswered questions or concerns. IN THE EVENT OF A SERIOUS EMERGENCY, GO TO THE NEAREST EMERGENCY ROOM Your discharge instructions were prepared by provider Thor Brown. Patient Instructions Signature Page Tasha Mckeon Patient (or Guardian) Signature/Date: I have read and understand the instructions given to me by my caregivers. Caregiver/RN/Doctor Signature/Date: The above-named patient and/or guardian has received patient instructions on this date. + Original Patient Signature Page (only) stays with chart. Please make copy for patient.
== END | disposition home or self-care (01) ==
LOC: C.GI 09:24
PROVIDERS: ATTEND Internal Medicine
DX: D12.3 Benign neoplasm of transverse colon (principal); R19.7 Diarrhea, unspecified; K57.90 Diverticulosis of intestine, part unspecified, without perforation or abscess without bleeding; K64.8 Other hemorrhoids

== ENCOUNTER → 2017-08-13 | Outpatient (CLI) | payer OTHER ==
[~2017-08-13] MED LIST changes: -ATROPINE SULFATE 0.1 MG/ML 5ML SYR IV PRN; -EpHEDrine SULFATE INJ 50 MG/ML AMP IV PRN; -LIDOCAINE HCL 2% 2 ML VIAL (20MG/ML) ONE; -PROPOFOL IV EMULSION 10 MG/ML 20 ML VIAL IV ONE; -SODIUM CHLORIDE 0.9% 500ML 500 ML IV ONE
[2017-08-13 18:15] LABS: COMPLETE YES; HEMATOCRIT 36.5 % (37-47); IG% 0.2 %; LYMPH % 9.2 %; MEAN CELL VOLUME 96.3 fL (80-100); MEAN CORPUSCULAR HEMOGLOBIN 31.9 pg (25-34); MEAN CORPUSCULAR HGB CONC 33.2 g/dl (32-36); MEAN PLATELET VOLUME 8.9 fL (7.4-10.4); MONO % 3.7 %; NEUT % 86.9 %; PLATELET COUNT 208 K/uL (130-400); RED BLOOD COUNT 3.79 M/uL (4.2-5.4); WHITE BLOOD COUNT 9.76 K/uL (4.8-10.8)
[2017-08-13 18:48] LABS: ALT/SGPT 32 U/L (12-78); AST/SGOT 19 U/L (15-37); BLOOD UREA NITROGEN 16 mg/dl (7-18); CALCIUM 8.2 mg/dl (8.5-10.1); CARBON DIOXIDE 27 mmol/L (21-32); CHLORIDE 98 mmol/L (98-107); GLUCOSE 146 mg/dl (70-99); POTASSIUM 3.9 mmol/L (3.5-5.1); SODIUM 134 mmol/L (136-145)
[2017-08-13 18:59] LABS: ALB/GLOB RATIO 0.9 (0.9-2); ALKALINE PHOSPHATASE 49 U/L (45-117); PHOSPHORUS 2.6 mg/dl (2.5-4.9); THYROID STIMULATING HORMONE 0.583 uIu/ml (0.300-4.500)
== END | disposition home or self-care (01) ==
LOC: C.LAB 17:11
PROVIDERS: ATTEND Physician Assistant
DX: E87.1 Hypo-osmolality and hyponatremia (principal); R26.89 Other abnormalities of gait and mobility; G40.909 Epilepsy, unspecified, not intractable, without status epilepticus; L65.9 Nonscarring hair loss, unspecified; R53.83 Other fatigue

== ENCOUNTER → 2017-09-26 | Outpatient (CLI) | payer OTHER ==
[~2017-09-26] MED LIST changes: +ACET20SO4 NEB; +AMLO5TAB3 PO; +ASPI81TA28 PO; +FURO-85 PO; +LEVE500T13 PO; +OXCA300T PO; +PRED20TA2 PO; +RANI150T3 PO; +TRL300 PO; +VENL75TA4 PO; +[UNRECOGNIZED DRUG - CODE] NEB
[2017-09-26 09:54] LABS: BLOOD UREA NITROGEN 16 mg/dl (7-18); CREATININE 0.89 mg/dl (0.60-1.20)
== END | disposition home or self-care (01) ==
LOC: C.LAB 08:27
PROVIDERS: ATTEND Psychiatry & Neurology Neurology
DX: Z00.00 Encounter for general adult medical examination without abnormal findings (principal)

== ENCOUNTER → 2017-10-04 | Outpatient (CLI) | payer OTHER ==
[~2017-10-04] MED LIST changes: +GADAVIST IV PRN
--- NOTE | 2017-10-04 09:04 | DIAGNOSTIC IMAGING REPORT ---
MRI OF THE BRAIN COMBO CLINICAL HISTORY: Seizure disorder. Chronic encephalopathy. COMPARISON STUDY: MRI of the brain dated 07/12/2017. TECHNIQUE: MRI of the brain was performed utilizing various T1 and T2-weighted sequences in the axial, sagittal, and coronal planes. Contrast-enhanced sequences were acquired following the administration of 5.5 cc of Gadavist. The Examination is performed using the seizure protocol. FINDINGS: Brain parenchyma: There are age-related involutional changes noting moderate patchy subcortical and periventricular microangiopathic disease. There is no hemorrhage or mass effect. There is no restricted diffusion to suggest acute ischemia. Restricted diffusion in the region of the hippocampus has resolved as compared to prior studies. Slightly increased FLAIR signal persists, and there is irregularity of the hippocampus seen on the high-resolution imaging. No enhancing mass lesion is identified on the postcontrast images. Banerjee-white matter differentiation is preserved. No extra-axial fluid collection is seen. The cerebellar tonsils are normal in configuration. Ventricles, sulci, and cisterns: Prominent secondary to involutional change. Pituitary and sella: Partially empty sella is incidentally noted. Intracranial vasculature: Normal flow voids are maintained at the skull base. Orbits: The bony orbits are grossly intact. Orbital contents are normal in appearance. Sinuses and mastoids: Clear. Calvarium: Unremarkable. Cervical cord: Partially visualized cervical spinal cord is normal in morphology and signal intensity. IMPRESSION: 1. There is no hemorrhage, enhancing mass, or evidence of acute ischemia. 2. Restricted diffusion in the region of the left hippocampus has resolved from prior studies. Increased FLAIR signal persists, and there is asymmetric irregularity of the left hippocampus seen on high-resolution imaging. Electronically signed by: Juan Miguel Chahal M.D. 10/04/2017 9:02 AM Dictated Date/Time: 10/04/2017 8:57 AM
== END | disposition home or self-care (01) ==
LOC: C.MRI 07:53
PROVIDERS: ATTEND Psychiatry & Neurology Neurology
DX: G40.909 Epilepsy, unspecified, not intractable, without status epilepticus (principal); G93.40 Encephalopathy, unspecified; I67.82 Cerebral ischemia

== ENCOUNTER 2018-01-24 18:30 | Emergency (ER) | payer OTHER ==
[~2018-01-24] VITALS: Ht 154.9 cm; Wt 57.0 kg
[~2018-01-24 18:30] MED LIST changes: -ACET20SO4 NEB; -AMLO5TAB3 PO; -ASPI81TA28 PO; -FURO-85 PO; -GADAVIST IV PRN; -LEVE500T13 PO; -OXCA300T PO; -PRED20TA2 PO; -RANI150T3 PO; -TRL300 PO; -VENL75TA4 PO; -[UNRECOGNIZED DRUG - CODE] NEB
[2018-01-24 18:35] VITALS: TEMP 36.7; Ht 154.9 cm; Wt 57.0 kg
[2018-01-24] MEDS ORDERED: SODIUM CHLORIDE 0.9% 1000ML 1,000 ML IV STA (18:59)
[2018-01-24] MEDS ORDERED: METHYLPREDNISOLONE 125 MG VIAL IV STA (18:59)
[2018-01-24] MEDS ORDERED: DiphenhydrAMINE HCL 50 MG/ML VIAL IV STA (18:59)
[2018-01-24] MEDS ORDERED: RANITIDINE HCL 150 MG TAB PO STA (18:59)
[2018-01-24] MEDS ORDERED: ALBUT/IPRATROP 3MG/0.5MG NEB 3 ML VIAL INH ONE (19:00)
--- NOTE | 2018-01-24 19:08 | EMERGENCY ROOM VISIT NOTE ---
History Report prepared by Cielo: Ibrahima Nicholas Under the Supervision of: Dr. Armand Hathaway M.D. First contact with patient: 18:49 Chief Complaint: ALLERGIC REACTION Stated Complaint: RASH ALL OVER BODY, SOB, MEDS SIDE EFFECT History of Present Illness The patient is a 72 year old female who presents to the Emergency Room with complaints of a constant, severe, itchy, rash beginning 6.5 hours ago. The patient's brother states she has a history of brain issues a few months ago. He reports the patient follows up with [facility] and is being treated with anti-seizure medications. The brother notes she gets warm and experiences hot flashes and a rash when she is off the medication. He states the patient first was on Depakote and then switched to Keppra. The brother reports the patient experienced a reaction to Keppra. He notes she was placed on lamotrigine for the past 6 weeks and told to decrease the Keppra dose gradually. The brother states last night was the first night she did not take Keppra. He reports she was fine this morning and then developed the rash this afternoon. The brother notes he called [facility] and was told to stop taking the lamotrigine. He states he was told to bring her into the ED just to be sure. The brother reports the patient has had shortness of breath and a heavy cough for the past few days. He notes she has a follow up with her pastry baker tomorrow. The brother states she takes medication daily for thick mucus and wears a vibrating vest. He reports the patient is slightly more confused and fatigue than normal after her treatment. The patient denies discomfort in her genitals, discomfort in her mouth, and taking a hot shower. Source of History: patient, family (brother) Onset: 6.5 hours ago Symptom Intensity: severe Quality: other (itchy, rash) Timing: constant Associated Symptoms: + cough, + SOB, + fatigue Note: Associated symptoms: mild confusion Denies: discomfort in her genitals, discomfort in her mouth, and taking a hot shower Review of Systems See HPI for pertinent positives & negatives. A total of 10 systems reviewed and were otherwise negative. Past Medical & Surgical Medical Problems: (1) AC MYOCARDIAL INFARCT,SUBENDO INFARCT,INITIAL EPIS (2) Altered mental status (3) ASTHMA, UNSPECIFIED (4) HYPERLIPIDEMIA NEC/NOS (5) Hypertensive urgency (6) Hypokalemia (7) Hyponatremia (8) IRRITABLE BOWEL SYNDROME Family History Hypertension Social History Smoking Status: Former Smoker Alcohol Use: none Drug Use: none Marital Status: Housing Status: lives with significant other Occupation Status: retired Current/Historical Medications Scheduled Amlodipine (Norvasc), 5 MG PO QPM Atorvastatin (Lipitor), 40 MG PO QAM Carvedilol (Coreg), 12.5 MG PO BID Celecoxib (CeleBREX), 200 MG PO QPM Furosemide (Lasix), 20 MG PO BID Immune Globulin (Human) Subcut (Hizentra), 1 DOSE SQ WK Levalbuterol (Levalbuterol HCl), 1.25 MG NEB Q4H Levetiracetam (Keppra), 500 MG PO UD Levetiracetam (Keppra), 1,000 MG PO UD Multivitamins/Minerals (Mvi With Minerals), 1 TAB PO QAM Potassium Chloride Microencaps (Potassium Chloride Er), 10 MEQ PO BID Prednisone (Prednisone Tab), 0 PO DAILY Ranitidine Hcl (Zantac), 150 MG PO BID Sodium Chloride (Sodium Chloride), 1 TAB PO BID Venlafaxine Hcl (Venlafaxine Extended Rel), 37.5 MG PO QPM [Magnesium Potassium], 250 MG PO QAM Scheduled PRN Albuterol Hfa (Ventolin Hfa), 2 PUFFS INH Q4H PRN for Cough/SOB/Wheezing Benzonatate (Benzonatate), 1 TAB PO TID PRN for Cough Clonazepam (Clonazepam), 0.5 MG PO TID PRN for Anxiety Epinephrine (Epipen), 0.3 MG IM UD PRN for ALLERGIC REACTION Naproxen (Aleve), 220 MG PO Q4H PRN for Pain Allergies Coded Allergies: Levofloxacin (Verified Allergy, Severe, ANAPHYLAXIS, 01/24/18) Quinolones (Verified Allergy, Severe, RASH, 01/24/18) Avelox and levaquin Molds and Smuts (Verified Allergy, Mild, SEASONAL ALLERGY SYMPTOMS, ) Doxycycline (Verified Adverse Reaction, Intermediate, nausea, 01/24/18) Erythromycin (Verified Adverse Reaction, Mild, N/V, 01/24/18) Amoxicillin (Verified Adverse Reaction, Unknown, Nausea, 01/24/18) Clavulanic Acid (Verified Adverse Reaction, Unknown, Nausea, 01/24/18) Moxifloxacin (Verified Adverse Reaction, Unknown, Nausea, 01/24/18) Physical Exam Vital Signs Date Time Temp Pulse Resp B/P (MAP) Pulse Ox O2 Delivery O2 Flow Rate FiO2 01/24/18 21:34 91 18 122/72 94 01/24/18 20:08 85 20 130/71 96 Room Air 01/24/18 19:45 85 22 92 Room Air 01/24/18 19:41 87 140/73 88 132/70 91 133/76 01/24/18 19:22 96 Room Air 01/24/18 19:19 96 Room Air 01/24/18 18:35 36.7 107 20 139/87 94 Room Air Physical Exam GENERAL: Awake, alert, well-appearing, in no acute distress HENT: Normocephalic, atraumatic. Oropharynx unremarkable. EYES: Normal conjunctiva. Sclera non-icteric. NECK: Supple. No nuchal rigidity. FROM. No JVD. RESPIRATORY: Clear to auscultation. CARDIAC: Regular rate, normal rhythm. Extremities warm and well perfused. Pulses equal. ABDOMEN: Soft, non-distended. No tenderness to palpation. No rebound or guarding. No masses. RECTAL: Deferred. MUSCULOSKELETAL: Chest examination reveals no tenderness. The back is symmetrical on inspection without obvious abnormality. There is no CVA tenderness to palpation. No joint edema. LOWER EXTREMITIES: Calves are equal size bilaterally and non-tender. No edema. No discoloration. NEURO: Normal sensorium. No sensory or motor deficits noted. SKIN: No jaundice noted. Diffuse maculopapular rash on the trunk, arms, face, and legs. No mucosal involvement. Medical Decision & Procedures ER Provider Diagnostic Interpretation: X-ray results as stated below per interpretation by me and the radiologist: CHEST ONE VIEW PORTABLE CLINICAL HISTORY: Pt c/o SOB dyspnea COMPARISON STUDY: 06/13/2017 FINDINGS: Lungs are generally clear. Slight basilar interstitial prominence on the left considered chronic. Diaphragms are smooth. Lungs otherwise are clear. IMPRESSION: Chronic change. No acute process. The above report was generated using voice recognition software. It may contain grammatical, syntax or spelling errors. Electronically signed by: Edy Boss M.D. 01/24/2018 7:20 PM Dictated Date/Time: 01/24/2018 7:19 PM Laboratory Results 01/24/18 19:30 Red Blood Count 4.10, Mean Corpuscular Volume 90.7, Mean Corpuscular Hemoglobin 31.0, Mean Corpuscular Hemoglobin Concent 34.1, Mean Platelet Volume 8.8, Neutrophils (%) (Auto) 67.7, Lymphocytes (%) (Auto) 17.2, Monocytes (%) (Auto) 5.9, Eosinophils (%) (Auto) 8.8, Basophils (%) (Auto) 0.2, Neutrophils # (Auto) 2.99, Lymphocytes # (Auto) 0.76, Monocytes # (Auto) 0.26, Eosinophils # (Auto) 0.39, Basophils # (Auto) 0.01 01/24/18 19:30 Test 01/24/18 19:30 White Blood Count 4.42 K/uL (4.8-10.8) Red Blood Count 4.10 M/uL (4.2-5.4) Hemoglobin 12.7 g/dL (12.0-16.0) Hematocrit 37.2 % (37-47) Mean Corpuscular Volume 90.7 fL (80-100) Mean Corpuscular Hemoglobin 31.0 pg (25-34) Mean Corpuscular Hemoglobin Concent 34.1 g/dl (32-36) Platelet Count 198 K/uL (130-400) Mean Platelet Volume 8.8 fL (7.4-10.4) Neutrophils (%) (Auto) 67.7 % Lymphocytes (%) (Auto) 17.2 % Monocytes (%) (Auto) 5.9 % Eosinophils (%) (Auto) 8.8 % Basophils (%) (Auto) 0.2 % Neutrophils # (Auto) 2.99 K/uL (1.4-6.5) Lymphocytes # (Auto) 0.76 K/uL (1.2-3.4) Monocytes # (Auto) 0.26 K/uL (0.11-0.59) Eosinophils # (Auto) 0.39 K/uL (0-0.5) Basophils # (Auto) 0.01 K/uL (0-0.2) RDW Standard Deviation 40.5 fL (36.4-46.3) RDW Coefficient of Variation 12.2 % (11.5-14.5) Immature Granulocyte % (Auto) 0.2 % Immature Granulocyte # (Auto) 0.01 K/uL (0.00-0.02) Anion Gap 5.0 mmol/L (3-11) Est Creatinine Clear Calc Drug Dose 32.6 ml/min Estimated GFR () 52.5 Estimated GFR (Non- 45.3 BUN/Creatinine Ratio 10.4 (10-20) Calcium Level 8.9 mg/dl (8.5-10.1) Total Bilirubin 0.4 mg/dl (0.2-1) Direct Bilirubin 0.1 mg/dl (0-0.2) Aspartate Amino Transf (AST/SGOT) 38 U/L (15-37) Alanine Aminotransferase (ALT/SGPT) 31 U/L (12-78) Alkaline Phosphatase 89 U/L (45-117) Total Protein 7.5 gm/dl (6.4-8.2) Albumin 3.8 gm/dl (3.4-5.0) Thyroid Stimulating Hormone (TSH) 3.750 uIu/ml (0.300-4.500) Labs reviewed by ED physician. Medications Administered Medications (Trade) Dose Ordered Sig/Breanne Route Start Time Stop Time Status Last Admin Dose Admin Albuterol/ Ipratropium (Duoneb) 12 ml ONE ONCE INH 01/24/18 19:00 01/24/18 19:03 DC 01/24/18 19:42 12 ML Methylprednisolone Sodium Succinate (Solu-Medrol IV) 125 mg NOW STAT IV 01/24/18 18:59 01/24/18 19:03 DC 01/24/18 19:43 125 MG Diphenhydramine HCl (Benadryl Inj) 50 mg NOW STAT IV 01/24/18 18:59 01/24/18 19:03 DC 01/24/18 19:43 50 MG Ranitidine HCl (zANTac TAB) 150 mg NOW STAT PO 01/24/18 18:59 01/24/18 19:03 DC 01/24/18 19:44 150 MG Sodium Chloride 1,000 ml @ 999 mls/hr Q1H1M STAT IV 01/24/18 18:59 01/24/18 19:59 DC 01/24/18 18:59 999 MLS/HR Ondansetron HCl (Zofran Inj) 4 mg STK-MED ONCE .ROUTE 01/24/18 19:35 01/24/18 19:36 DC 01/24/18 19:44 4 MG ECG Per My Interpretation Indication: other (allergic reaction) Rate (beats per minute): 91 Rhythm: normal sinus Findings: other (No ST elevation or depression. Normal axis.) ED Course 1850: Past medical records reviewed. The patient was evaluated in room B10. A complete history and physical examination was performed. 1858: Ordered Sodium Chloride 1000 ml @ 999 mls/hr IV, Ranitidine HCl 150mg PO, Benadryl 50mg IV, Solu-Medrol 125mg IV 1899: Ordered Duoneb 12ml INH 1934: Ordered Ondansetron HCl 4mg IV 2026: Upon reexamination the patient is resting. Her rash improved drastically. I discussed results and treatment plan with the patient and her brother. She and her brother verbalize agreement and understanding. The patient is ready for discharge. Medical Decision Differential diagnosis: Etiologies such as allergic reaction, anaphylaxis, urticaria, Cisneros-Earl syndrome, toxic epidermal necrolysis, erythema multiforme, cellulitis, as well as others were entertained. This is a 72-year-old female who presents the emergency department complaining of rash all over her body. Patient has no evidence of Cisneros-Earl on examination. The patient was recently started on a new seizure medication and I suspect that this is the source of this rash. The rash in addition is also chest x-ray is clear. She was given an hour-long breathing treatment as well as Zantac and Benadryl. For this reason the patient was given Solu-Medrol as well as Zantac. The patient is also complaining of a cough however therefore she was sent for a chest x-ray. She has normal laboratory work and I feel can be safely discharged home as she significantly improved on the Solu-Medrol. She will be placed on a prednisone taper. She has follow-up with her pastry baker tomorrow. Patient was in agreement with the treatment plan. Medication Reconcilliation Current Medication List: was personally reviewed by me Blood Pressure Screening Patient's blood pressure: Elevated blood pressure Blood pressure disposition: Elevated BP felt to be situational Impression Primary Impression: Adverse reaction to drug Scribe Attestation The scribe's documentation has been prepared under my direction and personally reviewed by me in its entirety. I confirm that the note above accurately reflects all work, treatment, procedures, and medical decision making performed by me. Departure Information Dispostion Home / Self-Care Prescriptions Ranitidine Hcl (ZANTAC) 150 Mg Tab 150 MG PO BID for 7 Days, #14 TAB Prov: Armand Hathaway MD 01/24/18 Prednisone (Prednisone Tab) 20 Mg Tab 0 PO DAILY, #7 TAB 2 TABS DAILY FOR 2 DAYS, THEN 1 TAB DAILY FOR 2 DAYS, THEN 1/2 TAB DAILY FOR 2 DAYS. Prov: Armand Hathaway MD 01/24/18 Referrals Jeri Hayden MD (PCP) Pelon Painter M.D. Forms HOME CARE DOCUMENTATION FORM, IMPORTANT VISIT INFORMATION, School Instructions, Work Instructions Patient Instructions ED Allergic Reaction General Other, My [facility], [facility] Additional Instructions Keep appointments as previously scheduled Take 50 mg Benadryl every 6 hours You have been examined and treated today on an emergency basis only. This is not a substitute for, or an effort to provide, complete comprehensive medical care. It is impossible to recognize and treat all injuries or illnesses in a single emergency department visit. It is therefore important that you follow up closely with Dr Painter. Call as soon as possible for an appointment. Thank you for your time and consideration. I look forward to speaking with you again soon. Please don't hesitate to call us if you have any questions. Problem Qualifiers Primary Impression: Adverse reaction to drug Encounter type: initial encounter Qualified Codes: T88.7XXA - Unspecified adverse effect of drug or medicament, initial encounter
--- NOTE | 2018-01-24 19:21 | DIAGNOSTIC IMAGING REPORT ---
CHEST ONE VIEW PORTABLE CLINICAL HISTORY: Pt c/o SOB dyspnea COMPARISON STUDY: 06/13/2017 FINDINGS: Lungs are generally clear. Slight basilar interstitial prominence on the left considered chronic. Diaphragms are smooth. Lungs otherwise are clear. IMPRESSION: Chronic change. No acute process. The above report was generated using voice recognition software. It may contain grammatical, syntax or spelling errors. Electronically signed by: Edy Boss M.D. 01/24/2018 7:20 PM Dictated Date/Time: 01/24/2018 7:19 PM
[2018-01-24 19:22] VITALS: O2SAT 96
[2018-01-24] MEDS ORDERED: ONDANSETRON INJ 2 MG/ML 2 ML VIAL ONE (19:35)
[2018-01-24] MEDS ORDERED: AMLO-110 PO (19:37)
[2018-01-24 19:45] VITALS: PULSE 85; O2SAT 92
[2018-01-24] MEDS ORDERED: LEVE500T13 PO (19:45)
[2018-01-24] MEDS ORDERED: FURO-85 PO (19:47)
[2018-01-24 19:50] LABS: BASO % 0.2 %; BASO ABS # 0.01 K/uL (0-0.2); EOS % 8.8 %; EOS ABS # 0.39 K/uL (0-0.5); HEMATOCRIT 37.2 % (37-47); HEMOGLOBIN 12.7 g/dL (12.0-16.0); IG# 0.01 K/uL (0.00-0.02); LYMPH % 17.2 %; LYMPH ABS # 0.76 K/uL (1.2-3.4); MEAN CELL VOLUME 90.7 fL (80-100); MEAN CORPUSCULAR HGB CONC 34.1 g/dl (32-36); MEAN PLATELET VOLUME 8.8 fL (7.4-10.4); MONO % 5.9 %; MONO ABS # 0.26 K/uL (0.11-0.59); NEUT % 67.7 %; NEUT ABS # 2.99 K/uL (1.4-6.5); PLATELET COUNT 198 K/uL (130-400); RED CELL DISTRIBUTION WIDTH CV 12.2 % (11.5-14.5); RED CELL DISTRIBUTION WIDTH SD 40.5 fL (36.4-46.3); WHITE BLOOD COUNT 4.42 K/uL (4.8-10.8)
[2018-01-24] MEDS ORDERED: ONDANSETRON INJ 2 MG/ML 2 ML VIAL IV STA (19:51)
[2018-01-24 20:08] LABS: ALBUMIN 3.8 gm/dl (3.4-5.0); CALCIUM 8.9 mg/dl (8.5-10.1); CREATININE 1.21 mg/dl (0.60-1.20); POTASSIUM 3.7 mmol/L (3.5-5.1)
[2018-01-24 20:19] LABS: TOTAL PROTEIN 7.5 gm/dl (6.4-8.2)
[2018-01-24] MEDS ORDERED: RANI150T3 PO (20:26)
[2018-01-24] MEDS ORDERED: PRED20TA2 PO (20:26)
[2018-01-24 21:34] VITALS: BP 122/72; PULSE 91; O2SAT 94
[2018-01-28 15:36] LABS: KEPPRA (LEVETIRACETAM) *15142X 69.8 mcg/mL; LAMICTAL (LAMOTRIGINE)**22060 5.9 mcg/mL (4.0-18.0)
== END 2018-01-24 21:35 | disposition home or self-care (01) ==
LOC: C.EDB 18:32
DX: R21 Rash and other nonspecific skin eruption (principal); T42.75XA Adverse effect of unspecified antiepileptic and sedative-hypnotic drugs, initial encounter; I25.2 Old myocardial infarction; J45.909 Unspecified asthma, uncomplicated; E78.5 Hyperlipidemia, unspecified; K58.9 Irritable bowel syndrome, unspecified; Z87.891 Personal history of nicotine dependence; Z79.899 Other long term (current) drug therapy; Z88.1 Allergy status to other antibiotic agents; Z91.048 Other nonmedicinal substance allergy status; Z88.0 Allergy status to penicillin

== ENCOUNTER → 2018-02-18 | Outpatient (CLI) | payer OTHER ==
[~2018-02-18] MED LIST changes: +AMLO-110 PO; -CLOP1TAB15 PO; -DPKSR/250 PO; -DPKSR/500 PO; +FURO-85 PO; +LEVE500T13 PO; -LOSA100T65 PO; -PRED10TA PO; +PRED20TA2 PO
[2018-02-18 10:18] LABS: BLOOD UREA NITROGEN 14 mg/dl (7-18); CALCIUM 9.3 mg/dl (8.5-10.1); CARBON DIOXIDE 31 mmol/L (21-32); CHOLESTEROL 205 mg/dl (0-200); CREATININE 0.91 mg/dl (0.60-1.20); GLUCOSE 91 mg/dl (70-99); LDL CHOLESTEROL CALCULATED 102 mg/dl; POTASSIUM 3.6 mmol/L (3.5-5.1); SODIUM 141 mmol/L (136-145)
== END | disposition home or self-care (01) ==
LOC: C.LAB 07:32
PROVIDERS: ATTEND Family Medicine
DX: I10 Essential (primary) hypertension (principal); E87.1 Hypo-osmolality and hyponatremia; Z00.00 Encounter for general adult medical examination without abnormal findings

== ENCOUNTER → 2018-04-25 | Outpatient (CLI) | payer OTHER ==
[~2018-04-25] MED LIST changes: -AMLO-110 PO; +AMLO5TAB3 PO
[2018-04-25 09:53] LABS: BASO ABS # 0.05 K/uL (0-0.2); EOS % 4.2 %; EOS ABS # 0.22 K/uL (0-0.5); HEMATOCRIT 36.3 % (37-47); HEMOGLOBIN 12.7 g/dL (12.0-16.0); IG# 0.01 K/uL (0.00-0.02); LYMPH % 32.1 %; LYMPH ABS # 1.68 K/uL (1.2-3.4); MEAN CELL VOLUME 88.3 fL (80-100); MEAN CORPUSCULAR HEMOGLOBIN 30.9 pg (25-34); MEAN PLATELET VOLUME 8.8 fL (7.4-10.4); MONO ABS # 0.47 K/uL (0.11-0.59); NEUT % 53.5 %; PLATELET COUNT 277 K/uL (130-400); RED CELL DISTRIBUTION WIDTH CV 12.7 % (11.5-14.5); WHITE BLOOD COUNT 5.23 K/uL (4.8-10.8)
[2018-04-25 10:15] LABS: BLOOD UREA NITROGEN 13 mg/dl (7-18); CALCIUM 9.1 mg/dl (8.5-10.1); CARBON DIOXIDE 28 mmol/L (21-32); CREATININE 0.76 mg/dl (0.60-1.20); GLUCOSE 93 mg/dl (70-99); SODIUM 131 mmol/L (136-145)
== END | disposition home or self-care (01) ==
LOC: C.LAB 08:36
PROVIDERS: ATTEND Physician Assistant
DX: G40.909 Epilepsy, unspecified, not intractable, without status epilepticus (principal)

== ENCOUNTER 2018-05-07 21:56 | Emergency (ER) | payer OTHER ==
[~2018-05-07] VITALS: Ht 157.5 cm; Wt 57.4 kg
[2018-05-07 22:01] VITALS: TEMP 36.7; Ht 157.5 cm; Wt 57.4 kg
[2018-05-07] MEDS ORDERED: ASPIRIN 81 MG CHEW PO STA (22:17)
[2018-05-07] MEDS: NITROGLYCERIN 0.4 MG SL PER TAB CHARGE SL PRN ×3 (22:30→22:56)
[2018-05-07 23:02] LABS: BASO ABS # 0.05 K/uL (0-0.2); EOS % 3.5 %; EOS ABS # 0.17 K/uL (0-0.5); HEMATOCRIT 36.2 % (37-47); HEMOGLOBIN 12.8 g/dL (12.0-16.0); IG# 0.01 K/uL (0.00-0.02); LYMPH % 37.1 %; LYMPH ABS # 1.82 K/uL (1.2-3.4); MEAN CELL VOLUME 88.3 fL (80-100); MEAN CORPUSCULAR HEMOGLOBIN 31.2 pg (25-34); MEAN CORPUSCULAR HGB CONC 35.4 g/dl (32-36); MEAN PLATELET VOLUME 8.6 fL (7.4-10.4); MONO % 7.5 %; MONO ABS # 0.37 K/uL (0.11-0.59); NEUT % 50.7 %; NEUT ABS # 2.49 K/uL (1.4-6.5); PLATELET COUNT 238 K/uL (130-400); RED CELL DISTRIBUTION WIDTH CV 12.7 % (11.5-14.5); RED CELL DISTRIBUTION WIDTH SD 41.2 fL (36.4-46.3); WHITE BLOOD COUNT 4.91 K/uL (4.8-10.8)
[2018-05-07 23:25] LABS: BLOOD UREA NITROGEN 14 mg/dl (7-18); CARBON DIOXIDE 29 mmol/L (21-32); CKMB 1.9 ng/ml (0.5-3.6); GLUCOSE 109 mg/dl (70-99); POTASSIUM 3.4 mmol/L (3.5-5.1); SODIUM 131 mmol/L (136-145)
--- NOTE | 2018-05-07 23:33 | DIAGNOSTIC IMAGING REPORT ---
CHEST ONE VIEW PORTABLE HISTORY: Atypical Chest Pain COMPARISON: Chest 01/24/2018. FINDINGS: Cervical spinal fusion hardware. The heart is normal in size. No focal lung consolidations to suggest pneumonia. No evidence for pulmonary edema. Mild emphysema. IMPRESSION: No significant change compared to the prior study. No acute process. Electronically signed by: Tez Thorpe M.D. 05/07/2018 11:32 PM Dictated Date/Time: 05/07/2018 11:30 PM
[2018-05-07] MEDS ORDERED: ACET20SO4 NEB (23:34)
[2018-05-07] MEDS ORDERED: OXCA300T PO (23:34)
[2018-05-07] MEDS ORDERED: [UNRECOGNIZED DRUG - CODE] NEB (23:34)
[2018-05-07] MEDS ORDERED: ASPI81TA28 PO (23:34)
[2018-05-07] MEDS ORDERED: TRL300 PO (23:34)
[2018-05-07] MEDS ORDERED: VENL75TA4 PO (23:37)
[2018-05-08 00:31] LABS: ALBUMIN 3.8 gm/dl (3.4-5.0); ALKALINE PHOSPHATASE 111 U/L (45-117); ALT/SGPT 27 U/L (12-78); AST/SGOT 33 U/L (15-37); TOTAL PROTEIN 7.3 gm/dl (6.4-8.2)
[2018-05-08 01:07] VITALS: BP 181/86; PULSE 68; O2SAT 98
--- NOTE | 2018-05-08 01:21 | Medical Consult ---
Consultation Date of Consultation: May 08, 2018. Attending Physician: Reason for Consultation: Chest pain/hypertension History of Present Illness Patient is a 72 year old female with a PMH of Takotsubo's syndrome, Depression, Asthma, Memory loss and HTN that presented to [facility] with elevated blood pressure. She has been recording her blood pressure at home and since last night her systolic blood pressure has been in the 200's systolically therefore she came to the emergency department to be evaluated. On further questioning she notes that she had two hours of mild chest discomfort earlier this afternoon that was crampy in nature and did not radiate. It has relieved since coming to the emergency department. She denies any palpitations, worsening cough, worsening shortness of breath, fevers, chills, decreased appetite, difficulty urinating or difficulty with bowel movements. Of note she has had a slow decline in her mental status since June 2017 at which point she presented to [facility] with altered mental status. She has been put on antiseizure medication and has been followed by neurology. She went to [facility] where she had a full work-up for her neurological decline and memory problems. Nobody has been able to come up with a diagnosis at this point. Past Medical/Surgical History Medical Problems: (1) Adverse reaction to drug Status: Acute (2) Chest pain Status: Acute (3) HTN (hypertension) Status: Acute (4) Hypertensive emergency Status: Acute (5) Metabolic encephalopathy Status: Acute Family History Hypertension Social History Smoking Status: Former Smoker Drug Use: none Marital Status: Housing Status: lives with significant other Occupation Status: retired Allergies Coded Allergies: Levofloxacin (Verified Allergy, Severe, ANAPHYLAXIS, 05/07/18) Quinolones (Verified Allergy, Severe, RASH, 05/07/18) Avelox and levaquin Molds and Smuts (Verified Allergy, Mild, SEASONAL ALLERGY SYMPTOMS, 05/07/18 ) Doxycycline (Verified Adverse Reaction, Intermediate, nausea, 05/07/18) Erythromycin (Verified Adverse Reaction, Mild, N/V, 05/07/18) Amoxicillin (Verified Adverse Reaction, Unknown, Nausea, 05/07/18) Clavulanic Acid (Verified Adverse Reaction, Unknown, Nausea, 05/07/18) Moxifloxacin (Verified Adverse Reaction, Unknown, Nausea, 05/07/18) Home Medications albuterol, amlodipine, aspirin, atorvastatin, carvedilol, clonazepam, lasix, trileptal and effexor Current Inpatient Medications Current Inpatient Medications Medications (Trade) Dose Ordered Sig/Breanne Route Start Time Stop Time Status Last Admin Dose Admin Nitroglycerin (Nitrostat Tab) 0.4 mg Q5M PRN SL 05/07/18 22:30 06/06/18 22:29 05/07/18 22:56 0.4 MG Review of Systems 10 systems reviewed and negative except as noted in the HPI Physical Exam Date Time Temp Pulse Resp B/P (MAP) Pulse Ox O2 Delivery O2 Flow Rate FiO2 05/07/18 23:40 78 17 163/83 98 Room Air 05/07/18 22:59 79 19 147/76 05/07/18 22:57 78 19 158/98 05/07/18 22:56 75 19 163/96 05/07/18 22:47 73 05/07/18 22:01 36.7 74 18 195/92 94 Room Air General Appearance: WD/WN, no apparent distress Eyes: PERRL, EOMI ENT: hearing grossly normal, pharynx normal Neck: supple, thyroid normal, no JVD, no carotid bruits Respiratory/Chest: lungs clear, no respiratory distress, no accessory muscle use Cardiovascular: regular rate, rhythm, normal peripheral pulses, + systolic murmur (2/6 ) Abdomen/GI: normal bowel sounds, non tender, soft Extremities/Musculoskelatal: normal inspection, no calf tenderness, no pedal edema, non-tender Neurologic/Psych: lab engineer II-XII nml as tested, no motor/sensory deficits, alert, normal mood/affect, oriented x 3 Skin: normal color, warm/dry, no rash Laboratory Results Last 24 Hours Test 05/07/18 22:40 05/08/18 00:51 White Blood Count 4.91 K/uL Red Blood Count 4.10 M/uL Hemoglobin 12.8 g/dL Hematocrit 36.2 % Mean Corpuscular Volume 88.3 fL Mean Corpuscular Hemoglobin 31.2 pg Mean Corpuscular Hemoglobin Concent 35.4 g/dl Platelet Count 238 K/uL Mean Platelet Volume 8.6 fL Neutrophils (%) (Auto) 50.7 % Lymphocytes (%) (Auto) 37.1 % Monocytes (%) (Auto) 7.5 % Eosinophils (%) (Auto) 3.5 % Basophils (%) (Auto) 1.0 % Neutrophils # (Auto) 2.49 K/uL Lymphocytes # (Auto) 1.82 K/uL Monocytes # (Auto) 0.37 K/uL Eosinophils # (Auto) 0.17 K/uL Basophils # (Auto) 0.05 K/uL RDW Standard Deviation 41.2 fL RDW Coefficient of Variation 12.7 % Immature Granulocyte % (Auto) 0.2 % Immature Granulocyte # (Auto) 0.01 K/uL Erythrocyte Sedimentation Rate 13 mm/hr Sodium Level 131 mmol/L Potassium Level 3.4 mmol/L Chloride Level 95 mmol/L Carbon Dioxide Level 29 mmol/L Anion Gap 7.0 mmol/L Blood Urea Nitrogen 14 mg/dl Creatinine 0.80 mg/dl Est Creatinine Clear Calc Drug Dose 51.8 ml/min Estimated GFR () 86.6 Estimated GFR (Non- 74.7 BUN/Creatinine Ratio 17.8 Random Glucose 109 mg/dl Calcium Level 9.0 mg/dl Magnesium Level 2.2 mg/dl Total Bilirubin 0.2 mg/dl Direct Bilirubin < 0.1 mg/dl Aspartate Amino Transf (AST/SGOT) 33 U/L Alanine Aminotransferase (ALT/SGPT) 27 U/L Alkaline Phosphatase 111 U/L Total Creatine Kinase 222 U/L Creatine Kinase MB 1.9 ng/ml Creatine Kinase MB Ratio 0.9 Troponin I 0.023 ng/ml Total Protein 7.3 gm/dl Albumin 3.8 gm/dl Thyroid Stimulating Hormone (TSH) 2.710 uIu/ml Assessment & Plan The patient is a 72 year old female with a PMH of TAKOTSUBO'S syndrome, Depression, Asthma, Memory loss and HTN that presented to [facility] with elevated blood pressure. Her vital signs in the emergency department showed a BP of 195/92, otherwise her vitals were unremarkable. She had a normal EKG in the ED. Her labs were unremarkable except for a sodium of 131 and a potassium of 3.4. She had a normal troponin and CXR without any acute findings. She was given aspirin and nitroglycerin in the emergency department. Her examination in the ED was unremarkable. She does not have any labs or physical exam findings that warrant further evaluation in the hospital. It is likely the patients blood pressure is uncontrolled possible secondary to anxiety vs a medication side effect. It is advised that the patient take an extra amlodipine if her systolic bp is >180 and her HR <70 or to take half an extra carvedilol if her systolic bp is >180 and her HR >70. It is advised that the patient follow up with her online marketing manager in the next 1-2 days in order to get further recommendations with regards to her blood pressure medications. Attending addendum: I have physically seen this patient, have supervised the medical residents activities, and agree with the H&P unless as otherwise noted. Assessment and Plan: Volatile blood pressure/Takotsubo's-- The patient was given parameters for medication coverage if her blood pressure exceeds a certain level as noted above. She does not want to be admitted to the hospital, and I do not think she needs to be admitted in the hospital. She will follow-up in the outpatient office with her PCP and/or online marketing manager within the next 1-2 days. She is aware that she can return to emergency department any time should be concerned about any of the above.
--- NOTE | 2018-05-08 01:33 | EMERGENCY ROOM VISIT NOTE ---
History Report prepared by Cielo: Evelyn Larios Under the Supervision of: Dr. Yovany Lloyd D.O. First contact with patient: 22:05 Chief Complaint: HYPERTENSION Stated Complaint: VERY HIGH BLOOD PRESSURE History of Present Illness The patient is a 72 year old female who presents to the Emergency Room with complaints of intermittent chest pressure beginning 2 hours ago. She describes the pain as a tingling, pressure, and tightness. Her caregiver notes the patient has memory issues and provided much of her history. 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 He states the patient began taking that medication 2 days ago, which seemed to exacerbate her tingling, which she has been experiencing throughout her entire body for 11 months. He reports she saw Dr. Gabriel yesterday, and her EKG was fine, and BP elevated. The patient denies arm pain, jaw pain, SOB, weakness, numbness, or abdominal pain. She notes that the chest pressure she felt tonight was different to her typical chest pain. There is no arm or jaw pain associated with this. She also had her paresthesias that she normally gets when she gets anxious. Source of History: patient, caregiver Onset: 2 hours ago Position: chest Quality: pressure, tingling, other (tightness) Timing: intermittent Associated Symptoms: No SOB, No abdominal pain, No weakness, No numbness Note: Denies: arm pain, jaw pain Review of Systems See HPI for pertinent positives & negatives. A total of 10 systems reviewed and were otherwise negative. Past Medical & Surgical Medical Problems: (1) AC MYOCARDIAL INFARCT,SUBENDO INFARCT,INITIAL EPIS (2) Altered mental status (3) ASTHMA, UNSPECIFIED (4) HYPERLIPIDEMIA NEC/NOS (5) Hypertensive urgency (6) Hypokalemia (7) Hyponatremia (8) IRRITABLE BOWEL SYNDROME Family History Hypertension Social History Smoking Status: Former Smoker Alcohol Use: none Drug Use: none Marital Status: Housing Status: lives with significant other Occupation Status: retired Current/Historical Medications Scheduled Acetylcysteine (Acetylcysteine), 4 ML NEB BID Amlodipine (Norvasc), 5 MG PO QPM Aspirin (Aspirin Ec), 81 MG PO QAM Atorvastatin (Lipitor), 40 MG PO QAM Carvedilol (Coreg), 12.5 MG PO BID Celecoxib (CeleBREX), 200 MG PO QPM Furosemide (Lasix), 20 MG PO BID Immune Globulin (Human) Subcut (Hizentra), 1 DOSE SQ WK Levalbuterol (Levalbuterol HCl), 1.25 MG NEB Q4H Multivitamins/Minerals (Mvi With Minerals), 1 TAB PO QAM Oxcarbazepine (Oxcarbazepine), 300 MG PO QAM Oxcarbazepine (Trileptal), 600 MG PO HS Potassium Chloride Microencaps (Potassium Chloride Er), 10 MEQ PO BID Sodium Chloride (Sodium Chloride), 1 TAB PO BID Sodium Chloride-Sodium Bicarbo (Saline Packets), 1 PKT NEB QID Venlafaxine Hcl (Effexor), 75 MG PO QPM Scheduled PRN Albuterol Hfa (Ventolin Hfa), 2 PUFFS INH Q4H PRN for Cough/SOB/Wheezing Benzonatate (Benzonatate), 1 TAB PO TID PRN for Cough Clonazepam (Clonazepam), 0.5 MG PO TID PRN for Anxiety Epinephrine (Epipen), 0.3 MG IM UD PRN for ALLERGIC REACTION Naproxen (Aleve), 220 MG PO Q4H PRN for Pain Allergies Coded Allergies: Levofloxacin (Verified Allergy, Severe, ANAPHYLAXIS, 05/07/18) Quinolones (Verified Allergy, Severe, RASH, 05/07/18) Avelox and levaquin Molds and Smuts (Verified Allergy, Mild, SEASONAL ALLERGY SYMPTOMS, 05/07/18 ) Doxycycline (Verified Adverse Reaction, Intermediate, nausea, 05/07/18) Erythromycin (Verified Adverse Reaction, Mild, N/V, 05/07/18) Amoxicillin (Verified Adverse Reaction, Unknown, Nausea, 05/07/18) Clavulanic Acid (Verified Adverse Reaction, Unknown, Nausea, 05/07/18) Moxifloxacin (Verified Adverse Reaction, Unknown, Nausea, 05/07/18) Physical Exam Vital Signs Date Time Temp Pulse Resp B/P (MAP) Pulse Ox O2 Delivery O2 Flow Rate FiO2 05/08/18 01:07 68 22 181/86 98 Room Air 05/07/18 23:40 78 17 163/83 98 Room Air 05/07/18 22:59 79 19 147/76 8/7/18 22:57 78 19 158/98 05/07/18 22:56 75 19 163/96 05/07/18 22:47 73 05/07/18 22:01 36.7 74 18 195/92 94 Room Air Physical Exam GENERAL: Sitting up in bed, alert, well appearing, well nourished, no distress, non-toxic EYE EXAM: normal conjunctiva. OROPHARYNX: no exudate, no erythema, lips, buccal mucosa, and tongue normal and mucous membranes are moist NECK: supple, no nuchal rigidity, no adenopathy, non-tender LUNGS: Clear to auscultation. Normal chest wall mechanics HEART: S1 normal and S2 normal ABDOMEN: abdomen soft, non-tender, normo-active bowel sounds, no masses, no rebound or guarding. BACK: Back is symmetrical on inspection and there is no deformity, no midline tenderness, no CVA tenderness. SKIN: no rashes and no bruising UPPER EXTREMITIES: upper extremities are grossly normal. LOWER EXTREMITIES: No pitting edema. NEURO EXAM: Normal sensorium, cranial nerves II-XII grossly intact, normal speech, no gross weakness of arms, no gross weakness of legs. Medical Decision & Procedures ER Provider Diagnostic Interpretation: Radiology results as stated below per my review and the radiologist's interpretation: CHEST ONE VIEW PORTABLE HISTORY: Atypical Chest Pain COMPARISON: Chest 01/24/2018. FINDINGS: Cervical spinal fusion hardware. The heart is normal in size. No focal lung consolidations to suggest pneumonia. No evidence for pulmonary edema. Mild emphysema. IMPRESSION: No significant change compared to the prior study. No acute process. Electronically signed by: Tez Thorpe M.D. 05/07/2018 11:32 PM Dictated Date/Time: 05/07/2018 11:30 PM Laboratory Results 05/07/18 22:40 Red Blood Count 4.10, Mean Corpuscular Volume 88.3, Mean Corpuscular Hemoglobin 31.2, Mean Corpuscular Hemoglobin Concent 35.4, Mean Platelet Volume 8.6, Neutrophils (%) (Auto) 50.7, Lymphocytes (%) (Auto) 37.1, Monocytes (%) (Auto) 7.5, Eosinophils (%) (Auto) 3.5, Basophils (%) (Auto) 1.0, Neutrophils # (Auto) 2.49, Lymphocytes # (Auto) 1.82, Monocytes # (Auto) 0.37, Eosinophils # (Auto) 0.17, Basophils # (Auto) 0.05 05/07/18 22:40 Test 05/07/18 22:40 05/08/18 00:51 White Blood Count 4.91 K/uL (4.8-10.8) Red Blood Count 4.10 M/uL (4.2-5.4) Hemoglobin 12.8 g/dL (12.0-16.0) Hematocrit 36.2 % (37-47) Mean Corpuscular Volume 88.3 fL (80-100) Mean Corpuscular Hemoglobin 31.2 pg (25-34) Mean Corpuscular Hemoglobin Concent 35.4 g/dl (32-36) Platelet Count 238 K/uL (130-400) Mean Platelet Volume 8.6 fL (7.4-10.4) Neutrophils (%) (Auto) 50.7 % Lymphocytes (%) (Auto) 37.1 % Monocytes (%) (Auto) 7.5 % Eosinophils (%) (Auto) 3.5 % Basophils (%) (Auto) 1.0 % Neutrophils # (Auto) 2.49 K/uL (1.4-6.5) Lymphocytes # (Auto) 1.82 K/uL (1.2-3.4) Monocytes # (Auto) 0.37 K/uL (0.11-0.59) Eosinophils # (Auto) 0.17 K/uL (0-0.5) Basophils # (Auto) 0.05 K/uL (0-0.2) RDW Standard Deviation 41.2 fL (36.4-46.3) RDW Coefficient of Variation 12.7 % (11.5-14.5) Immature Granulocyte % (Auto) 0.2 % Immature Granulocyte # (Auto) 0.01 K/uL (0.00-0.02) Erythrocyte Sedimentation Rate 13 mm/hr (0-21) Anion Gap 7.0 mmol/L (3-11) Est Creatinine Clear Calc Drug Dose 51.8 ml/min Estimated GFR () 86.6 Estimated GFR (Non- 74.7 BUN/Creatinine Ratio 17.8 (10-20) Calcium Level 9.0 mg/dl (8.5-10.1) Magnesium Level 2.2 mg/dl (1.8-2.4) Total Bilirubin 0.2 mg/dl (0.2-1) Direct Bilirubin < 0.1 mg/dl (0-0.2) Aspartate Amino Transf (AST/SGOT) 33 U/L (15-37) Alanine Aminotransferase (ALT/SGPT) 27 U/L (12-78) Alkaline Phosphatase 111 U/L (45-117) Total Creatine Kinase 222 U/L (26-192) Creatine Kinase MB 1.9 ng/ml (0.5-3.6) Creatine Kinase MB Ratio 0.9 (0-3.0) Troponin I 0.023 ng/ml (0-0.045) Total Protein 7.3 gm/dl (6.4-8.2) Albumin 3.8 gm/dl (3.4-5.0) Thyroid Stimulating Hormone (TSH) 2.710 uIu/ml (0.300-4.500) Vitamin B12 Level 649 pg/mL (211-911) Folate 21.08 ng/mL (>5.38) Laboratory results per my review. Medications Administered Medications (Trade) Dose Ordered Sig/Breanne Route Start Time Stop Time Status Last Admin Dose Admin Aspirin (Aspirin Chew) 324 mg NOW STAT PO 05/07/18 22:17 05/07/18 22:19 DC 05/07/18 22:30 324 MG Nitroglycerin (Nitrostat Tab) 0.4 mg Q5M PRN SL 05/07/18 22:30 06/06/18 22:29 05/07/18 22:56 0.4 MG ECG Per My Interpretation Indication: chest pain Rate (beats per minute): 78 Rhythm: normal sinus Findings: other (normal axis. no PVCs. poor baseline in inferior.) ED Course ED COURSE: Vital signs were reviewed and showed situational hypertension. The patients medical record was reviewed The above diagnostic studies were performed and reviewed. ED treatments and interventions as stated above. 2206: The patient was evaluated in room C4. A complete history and physical examination was performed. 7: Ordered Aspirin 324 mg PO. 2229: Ordered Nitroglycerin 0.4 mg SL. 2255: Upon reevaluation, the patient is feeling better. Her BP is now in the 180s 2355: I reviewed the patient's case with [facility] internal medicine. They will evaluate the patient. 0045: I reviewed the patient's case with [facility] internal medicine. They recommend discharge. 0048: I discussed my findings with the patient and she understands and agrees with the treatment plan. Based on the patients age, coexisting illnesses, exam and lab findings the decision to treat as an outpatient was made. The patient remained stable while under my care. The patient appeared well at the time of discharge. Medical Decision Differential diagnoses includes but is not limited to acute coronary syndrome, myocardial infarction, pericarditis, pulmonary embolus, aortic dissection, pneumonia, pneumothorax, musculoskeletal, shingles, esophageal. Patient is a 72-year-old female who presents the ER for hypertension and chest pain. Upon arrival patient's blood pressures were in the 180s. They trended down to the 160s without treatment. Patient has no current chest pain at this time. CBC along with BMP, LFTs, bilirubin and troponin were negative. Troponin was detectable but not positive. TSH was 2.7. Chest x-ray was unremarkable. EKG showed no acute pathology. Did give her aspirin. Systolic blood pressures and down on her own. With her blood pressure and her chest pain I did discuss with internal medicine in regards to observation. They evaluated at bedside. They noted that she does not need to be admitted at this time and can be discharged without any additional workup. Patient was updated at bedside. They are given instructions on additional dosing of blood pressure medications to take if her blood pressure increases to 160. Discussed with Pt concerning signs and symptoms to watch out for. Pt was instructed to follow up with their PCP and discussed with the patient their option to return to the ED at anytime for persistent or worsening symptoms. The appropriate anticipatory guidance and out-patient management, including indications for return to the emergency department, were explained at length to the patient and understood. Medication Reconcilliation Current Medication List: was personally reviewed by me Blood Pressure Screening Patient's blood pressure: Elevated blood pressure Blood pressure disposition: Elevated BP felt to be situational Impression Primary Impression: HTN (hypertension) Additional Impression: Chest pain Scribe Attestation The scribe's documentation has been prepared under my direction and personally reviewed by me in its entirety. I confirm that the note above accurately reflects all work, treatment, procedures, and medical decision making performed by me. Departure Information Dispostion Home / Self-Care Referrals Jeri Hayden MD (PCP) Forms HOME CARE DOCUMENTATION FORM, IMPORTANT VISIT INFORMATION, WORK / SCHOOL INSTRUCTIONS Patient Instructions My [facility] Additional Instructions Please follow up with your primary care doctor with in the next 24 hours. Any worsening of your symptoms, please return to the ED immediately. This includes any fevers greater than 100.4, worsening pain, chest pain, shortness breath, persistent nausea, vomiting, unable to eat or drink, or any other concerning signs or symptoms from your standpoint. You were found to have a blood pressure greater than 120 systolic over 90 diastolic. Due to the new Medicare guidelines, we are now recommending that you follow up with your primary care doctor in regards to this elevated blood pressure. Per internal medicine they suggested if your blood pressures greater than 160 and your heart rate is greater than 70 you can take an extra half tablet of your carvedilol once. Problem Qualifiers Primary Impression: HTN (hypertension) Hypertension type: unspecified Qualified Codes: I10 - Essential (primary) hypertension Additional Impression: Chest pain Chest pain type: unspecified Qualified Codes: R07.9 - Chest pain, unspecified
== END 2018-05-08 01:15 | disposition home or self-care (01) ==
LOC: C.EDB 21:57 → C.EDC 05-08 01:15
DX: I10 Essential (primary) hypertension (principal); R10.9 Unspecified abdominal pain; Z79.82 Long term (current) use of aspirin; E78.5 Hyperlipidemia, unspecified; J45.909 Unspecified asthma, uncomplicated; E87.6 Hypokalemia; Z87.891 Personal history of nicotine dependence; Z82.49 Family history of ischemic heart disease and other diseases of the circulatory system; Z88.1 Allergy status to other antibiotic agents; Z91.048 Other nonmedicinal substance allergy status

== ENCOUNTER → 2018-05-23 | Outpatient (CLI) | payer OTHER ==
[~2018-05-23] MED LIST changes: +ACET20SO4 NEB; +ASPI81TA28 PO; -LEVE500T13 PO; -MAGNESIUM POTASSIUM PO; +OXCA300T PO; -PRED20TA2 PO; +TRL300 PO; -VENL37.593 PO; +VENL75TA4 PO; +[UNRECOGNIZED DRUG - CODE] NEB
[2018-05-23 10:05] LABS: BLOOD UREA NITROGEN 10 mg/dl (7-18); CALCIUM 8.9 mg/dl (8.5-10.1); CARBON DIOXIDE 27 mmol/L (21-32); CREATININE 0.85 mg/dl (0.60-1.20); GLUCOSE 103 mg/dl (70-99); POTASSIUM 3.6 mmol/L (3.5-5.1); SODIUM 130 mmol/L (136-145)
== END | disposition home or self-care (01) ==
LOC: C.LAB 09:06
PROVIDERS: ATTEND Physician Assistant
DX: R25.1 Tremor, unspecified (principal)